=== PATIENT | female | born 1955 | race Caucasian/White ===

== ENCOUNTER 2019-10-09 12:11 | Outpatient (CLI) | payer MEDICARE, SELFPAY ==
--- NOTE | ~2019-10-09 | XR_ITS ---
EXAMINATION: XR knee LT 2V DATE: 10/09/2019 12:28 INDICATION: Left knee pain. TECHNIQUE: 2 views of left knee were obtained. COMPARISON: None. FINDINGS: Bone alignment is normal. No fracture. Joint spaces are well maintained. There is no knee j oint effusion. IMPRESSION: 1. Normal left knee. Reviewed, dictated and finalized at location A. IMPRESSION: 1. Normal left knee.
== END 2019-10-09 12:12 | disposition home or self-care (01) ==
PROVIDERS: PCP Internal Medicine; Visit Provider Internal Medicine
DX: M79.605 Pain in left leg (principal)
CPT/HCPCS: 73560

== ENCOUNTER 2019-10-19 10:47 | Outpatient (CLI) | payer MEDICARE, SELFPAY ==
--- NOTE | ~2019-10-19 | US_ITS ---
EXAMINATION: US soft tissue LE LT DATE: 10/19/2019 11:45 INDICATION: Left popliteal fossa pain. TECHNIQUE: Multiple grayscale and Doppler ultrasound images of the popliteal fossa were obtained. COMPARISON: None FINDINGS/IMPRESSION: No abnormal masses or fluid collections identified at the left popliteal fossa. Reviewed, dictated and finalized at location A.
== END 2019-10-19 10:48 | disposition home or self-care (01) ==
PROVIDERS: PCP Internal Medicine; Visit Provider Internal Medicine
DX: M71.20 Synovial cyst of popliteal space [Baker], unspecified knee (principal); M79.89 Other specified soft tissue disorders
CPT/HCPCS: 76882

== ENCOUNTER 2019-12-03 17:32 | Outpatient (CLI) | payer MEDICARE, SELFPAY ==
[2019-12-03 17:51] LABS: Basophils Absolute Auto 0.1 K/mm3 (0.0-0.1); Basophils Percent Auto 0.6 % (0.2-1.2); Eosinophils Absolute Auto 0.2 K/mm3 (0-0.3); Eosinophils Percent Auto 1.9 % (0-4.4); Hemoglobin 14.8 g/dL (12.0-15.0); Immature Granulocyte Absolute 0.08 K/mm3 (0.00-0.031); Immature Granulocyte Percent A 0.7 % (0-0.5); Lymphocytes Absolute Auto 4.06 K/mm3 (0.9-3.2); Lymphocytes Percent Auto 37.6 % (18.3-44.2); Mean Corpuscular HGB Conc 32.9 g/dl (32-36); Mean Corpuscular Hemoglobin 29.2 pg (26-34); Mean Corpuscular Volume 88.9 fl (80-100); Mean Platelet Volume 10.4 fl (7.4-10.4); Monocytes Absolute Auto 0.6 K/mm3 (0.1-0.6); Monocytes Percent Auto 5.3 % (2.6-8.5); Neutrophils Absolute Auto 5.8 K/mm3 (1.3-6.7); Neutrophils Percent Auto 53.9 % (45.5-73.1); Platelet Count Result 274 k/mm3 (150-375); Red Blood Count 5.06 M/mm3 (4.2-5.4); White Blood Count 10.8 K/mm3 (4.5-10.0)
[2019-12-03 18:06] LABS: Alanine Aminotransferase 22 U/L (4-35); Albumin Level 4.1 g/dL (3.5-5.1); Alkaline Phosphatase 113 U/L (38-126); Aspartate Amino Transferase 22 U/L (14-36); Bilirubin,Total 0.4 mg/dL (0.2-1.3); Blood Urea Nitrogen 18 mg/dL (7-17); Calcium 9.2 mg/dL (8.4-10.2); Carbon Dioxide 28 mmol/L (22-30); Chloride 103 mmol/L (98-107); Cholesterol 181 mg/dL (0-200); Estimated Glomerular Filt Rate > 60; Glucose 91 mg/dL (65-105); HDL Direct 41 mg/dL; Potassium 3.8 mmol/L (3.4-5.0); Sodium 138 mmol/L (137-145); Triglycerides 203 mg/dL (<150)
[2019-12-03 18:17] LABS: LDL Cholesterol Direct 108 mg/dL
[2019-12-03 18:27] LABS: Creatinine Urine 73.2 mg/dL
[2019-12-03 18:57] LABS: Microalbumin Urine Random < 6.0 mg/L (0-16.7)
[2019-12-03 18:58] LABS: MALB Creatinine Ratio < 8.2 mg/g (0-30)
[2019-12-03 19:58] LABS: Hemoglobin A1C 7.2 % (<5.7)
== END 2019-12-03 17:33 | disposition home or self-care (01) ==
PROVIDERS: PCP Internal Medicine; Visit Provider Internal Medicine
DX: E78.2 Mixed hyperlipidemia (principal); E11.65 Type 2 diabetes mellitus with hyperglycemia
CPT/HCPCS: 36415; 80053; 80061; 82043; 83036; 85025

== ENCOUNTER 2020-04-07 16:14 | Outpatient (CLI) | payer MEDICARE, SELFPAY ==
--- NOTE | ~2020-04-07 | CT_ITS ---
EXAMINATION:CT lung screening DATE: 04/07/2020 16:45 INDICATION: Personal history of tobacco dependence. Current smoker with 45 pack year history. TECHNIQUE: Computed tomography (CT) of the chest was performed without intravenous contrast. Automate d exposure control and iterative reconstruction technique were employed. The dose-length product (DLP ) was 135.27 mGy-cm. COMPARISON: Chest CT 04/13/2019 FINDINGS: There is mild emphysema. There is mild atelectasis in lingula. There is a stable 3 mm nodul e in right lower lobe. No pleural effusion. The heart size is normal. There are coronary artery calci fications. No pericardial effusion. There is moderate thoracic spondylosis. There is mild chronic ant erior wedging of multiple thoracic vertebral bodies. IMPRESSION: 1. Lung-RADS category 2: Benign appearance or behavior. Continue annual screening with noncontrast lo w-dose chest CT in 12 months. Reviewed, dictated and finalized at location A. ICS INSTRUCTOR IMPRESSION: 1. Lung-RADS category 2: Benign appearance or behavior. Continue annual screeni ng with noncontrast low-dose chest CT in 12 months.
== END 2020-04-07 16:15 | disposition home or self-care (01) ==
PROVIDERS: PCP Family Medicine; Visit Provider Nurse Practitioner Family
DX: Z12.2 Encounter for screening for malignant neoplasm of respiratory organs (principal); Z87.891 Personal history of nicotine dependence
CPT/HCPCS: G0297

== ENCOUNTER 2020-05-22 15:19 | Outpatient (CLI) | payer MEDICARE, SELFPAY ==
--- NOTE | ~2020-05-22 | MM_ITS ---
EXAMINATION: MM screening alona BI w lizbet HISTORY: Screening mammogram TECHNIQUE: Craniocaudal and mediolateral oblique 3-D tomosynthesis images were obtained and synthetic 2-D images were generated. CAD analysis was submitted and interpreted. COMPARISON: 08/18/2018, 04/04/2017 bilateral digital screening mammogram examinations BREAST PARENCHYMAL COMPOSITION: There are scattered areas of fibroglandular density. FINDINGS: There is no evidence of suspicious mass, calcification, or architectural distortion to sugg est malignancy in either breast. There has been no suspicious interval change. IMPRESSION: 1. No mammographic evidence of malignancy. 2. Recommend routine screening mammography in one year. BI-RADS Category 1: Negative Reviewed, dictated and finalized at location B. BUNCH MAKER
== END 2020-05-22 15:20 | disposition home or self-care (01) ==
PROVIDERS: PCP Family Medicine; Visit Provider Obstetrics & Gynecology Gynecology
DX: Z12.31 Encounter for screening mammogram for malignant neoplasm of breast (principal)
CPT/HCPCS: 77063; 77067

== ENCOUNTER 2020-07-17 14:31 | Outpatient (CLI) | payer MEDICARE, SELFPAY ==
[2020-07-17 16:17] LABS: Basophils Absolute Auto 0.1 K/mm3 (0.0-0.1); Basophils Percent Auto 0.5 % (0.2-1.2); Eosinophils Absolute Auto 0.3 K/mm3 (0-0.3); Eosinophils Percent Auto 3.6 % (0-4.4); Hematocrit 47.4 % (37.0-47.0); Hemoglobin 15.3 g/dL (12.0-15.0); Immature Granulocyte Absolute 0.08 K/mm3 (0.00-0.031); Immature Granulocyte Percent A 0.9 % (0-0.5); Lymphocytes Absolute Auto 3.27 K/mm3 (0.9-3.2); Lymphocytes Percent Auto 35.2 % (18.3-44.2); Mean Corpuscular HGB Conc 32.3 g/dl (32-36); Mean Corpuscular Hemoglobin 28.2 pg (26-34); Mean Corpuscular Volume 87.5 fl (80-100); Mean Platelet Volume 10.5 fl (7.4-10.4); Monocytes Absolute Auto 0.6 K/mm3 (0.1-0.6); Neutrophils Percent Auto 53.8 % (45.5-73.1); Platelet Count Result 287 k/mm3 (150-375); Red Blood Count 5.42 M/mm3 (4.2-5.4); White Blood Count 9.3 K/mm3 (4.5-10.0)
[2020-07-17 16:41] LABS: LDL Cholesterol Direct 108 mg/dL
[2020-07-17 16:44] LABS: Alanine Aminotransferase 20 U/L (4-35); Albumin Level 4.2 g/dL (3.5-5.1); Alkaline Phosphatase 130 U/L (38-126); Anion Gap 3 mmol/L (8-16); Aspartate Amino Transferase 22 U/L (14-36); Bilirubin,Total 0.5 mg/dL (0.2-1.3); Blood Urea Nitrogen 13 mg/dL (7-17); Calcium 9.5 mg/dL (8.4-10.2); Carbon Dioxide 34 mmol/L (22-30); Chloride 101 mmol/L (98-107); Cholesterol 186 mg/dL (0-200); Estimated Glomerular Filt Rate > 60; Glucose 126 mg/dL (65-105); HDL Direct 41 mg/dL; Magnesium 1.8 mg/dL (1.6-2.3); Sodium 138 mmol/L (137-145); Triglycerides 267 mg/dL (<150)
[2020-07-17 16:46] LABS: Hemoglobin A1C 6.9 % (<5.7)
== END 2020-07-17 14:32 | disposition home or self-care (01) ==
PROVIDERS: PCP Family Medicine; Visit Provider Family Medicine
DX: E78.2 Mixed hyperlipidemia (principal); E53.8 Deficiency of other specified B group vitamins; K58.0 Irritable bowel syndrome with diarrhea; E08.00 Diabetes mellitus due to underlying condition with hyperosmolarity without nonketotic hyperglycemic-hyperosmolar coma (NKHHC)
CPT/HCPCS: 36415; 80048; 80061; 80076; 82607; 83036; 83735; 85025

== ENCOUNTER 2020-08-26 08:37 | Outpatient (CLI) | payer MEDICARE, SELFPAY ==
--- NOTE | ~2020-08-26 | CT_ITS ---
EXAMINATION: CT sinus wo con DATE: 08/26/2020 09:11 INDICATION: Chronic sinusitis TECHNIQUE: Computed tomography (CT) of the paranasal sinuses was performed without intravenous contra st. The dose-length product (DLP) was 239.53 mGy-cm. Iterative reconstruction was used. 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 There is mild mucosal thickening of the frontal sinuses, the bilateral maxillary sinuses, left greate r than right, and the ethmoidal air cells. Opacification of the left maxillary sinus has decreased. C hanges of left middle turbinectomy are noted. The bilateral ostiomeatal complexes are patent. Visuali zed soft tissues are unremarkable. Rightward deviation of the nasal septum is unchanged. IMPRESSION: 1. Mucosal thickening of the paranasal sinuses with improvement in the left maxillary sinus. 2. Stable rightward deviation of the nasal septum. Reviewed, dictated and finalized at location B. IMPRESSION: 1. Mucosal thickening of the paranasal sinuses with improvement in the left max illary sinus. 2. Stable rightward deviation of the nasal septum.
== END 2020-08-26 08:38 | disposition home or self-care (01) ==
PROVIDERS: PCP Family Medicine; Visit Provider Otolaryngology
DX: J32.9 Chronic sinusitis, unspecified (principal); J34.2 Deviated nasal septum
CPT/HCPCS: 70486

== ENCOUNTER 2020-09-22 16:05 | Emergency (ER) | payer MEDICARE, SELFPAY ==
--- NOTE | ~2020-09-22 | XR_ITS ---
EXAMINATION: XR chest 2V EXAM DATE: 09/22/2020 16:58 INDICATION: Midsternal chest and back pain. TECHNIQUE: Frontal and lateral projections of the chest obtained and reviewed. Comparison is made to prior examination from 08/16/2018. FINDINGS: The lungs are clear. There are no pleural effusions. The cardiomediastinal silhouette is within normal limits. There is no pneumothorax suspected. The bones and soft tissues are unremarkab le. IMPRESSION: No acute cardiopulmonary findings. Reviewed, dictated and finalized at location A.
--- NOTE | 2020-09-22 16:07 | ECG_ITS ---
Measurements Intervals [place] Rate: 91 P: 110 WI: 155 QRS: 124 QRSD: 144 T: 183 QT: 399 QTc: 492 Interpretive Statements SINUS RHYTHM VENTRICULAR PREMATURE COMPLEX ARM LEADS REVERSED RIGHT BUNDLE BRANCH BLOCK BASELINE ARTIFACT- I, II, AVR, AVL, V6 ABNORMAL ECG Electronically Signed On 09-22-2020 16:33:06 CDT by Mundo Pinto D.O.
[2020-09-22 16:15] VITALS: BP 119/56; PULSE 85; RESP 18; TEMP 36.3; O2SAT 95
[2020-09-22 16:32] LABS: Basophils Percent Auto 0.4 % (0.2-1.2); Eosinophils Absolute Auto 0.2 K/mm3 (0-0.3); Eosinophils Percent Auto 1.6 % (0-4.4); Hemoglobin 14.8 g/dL (12.0-15.0); Immature Granulocyte Absolute 0.07 K/mm3 (0.00-0.031); Immature Granulocyte Percent A 0.7 % (0-0.5); Lymphocytes Absolute Auto 3.29 K/mm3 (0.9-3.2); Lymphocytes Percent Auto 33.2 % (18.3-44.2); Mean Corpuscular HGB Conc 32.2 g/dl (32-36); Mean Corpuscular Hemoglobin 28.4 pg (26-34); Mean Corpuscular Volume 88.3 fl (80-100); Mean Platelet Volume 10.2 fl (7.4-10.4); Monocytes Absolute Auto 0.5 K/mm3 (0.1-0.6); Monocytes Percent Auto 4.7 % (2.6-8.5); Neutrophils Absolute Auto 5.9 K/mm3 (1.3-6.7); Neutrophils Percent Auto 59.4 % (45.5-73.1); Platelet Count Result 302 k/mm3 (150-375); Red Blood Count 5.21 M/mm3 (4.2-5.4); Red Cell Distribution Width 14.6 % (11.5-14.5); White Blood Count 9.9 K/mm3 (4.5-10.0)
[2020-09-22 16:41] LABS: Anion Gap 5 mmol/L (8-16); Blood Urea Nitrogen 16 mg/dL (7-17); Calcium 8.9 mg/dL (8.4-10.2); Carbon Dioxide 30 mmol/L (22-30); Chloride 104 mmol/L (98-107); Estimated CRCL calculation 69 ml/min; Estimated Glomerular Filt Rate > 60; Glucose 155 mg/dL (65-105); INR 0.9; Potassium 3.8 mmol/L (3.4-5.0); Prothrombin Time 12.7 Seconds (11.1-14.7); Sodium 139 mmol/L (137-145)
[2020-09-22 16:42] LABS: Partial Thromboplastin Time 27.2 SECONDS (22.3-36.8)
[2020-09-22 16:54] LABS: Troponin I < 0.012 ng/mL (0.000-0.034)
--- NOTE | 2020-09-22 19:57 | ED.CHESTPAIN ---
HPI - Chest Pain General Chief Complaint: Chest Pain Stated Complaint: chest pain radiates to back Time Seen by Provider: 09/22/20 19:43 Source: patient and family Mode of arrival: ambulatory Limitations: no limitations History of Present Illness HPI narrative: 64-year-old with a history of hypertension here with complaints of nausea, chest pain and vomiting for past few days. Patient states that she has been on losartan 25 mg daily which was recently increased to 50 mg. Patient states that she is doing taking it for past few days however she states that she is unable to tolerate 50 mg losartan. She states that she threw up several times in the past few days however since morning she was feeling much better. She presently denies any fever or chills. No history of chest pain at this time. She states that she called her primary doctor who recommended to go to the ER. complaint: chest pain Onset (ago): day(s) (2) Pain location: substernal Pain radiation: none Relieving factors: nothing Exacerbating factors: nothing Related Data Home Medications Medication Instructions Recorded Confirmed aspirin 81 mg tablet,delayed 81 mg PO DAILY 06/01/19 02/21/20 release calcium polycarbophil 625 mg tablet 1,250 mg PO DAILY 06/01/19 02/21/20 albuterol sulfate 90 mcg/actuation 2 inh INHALATION Q4-6H g 07/07/20 aerosol inhaler Allergies Allergy/AdvReac Type Severity Reaction Status Date / Time doxycycline Allergy Unknown unknown Verified 02/21/20 10:29 erythromycin base Allergy Unknown unknown Verified 02/21/20 10:29 tetracycline Allergy Unknown Unknown Verified 02/21/20 10:29 Review of Systems Review of Systems: All systems reviewed & are unremarkable except as noted in HPI and below Constitutional: Constitutional: Reports no additional constitutional complaints Eyes: Eyes: Reports no additional eye complaints ENT: Reports system reviewed and no additional complaints, except as documented Cardiovascular: Cardiovascular: Reports as per HPI Respiratory: Respiratory: Reports no additional respiratory complaints Gastrointestinal: Gastrointestinal: Reports as per HPI Musculoskeletal: Musculoskeletal: Reports no additional musculoskeletal complaints Integumentary/Breasts: Skin/Breast: Reports system reviewed and no additional complaints, except as docu Neurologic: Reports system reviewed and no additional complaints, except as documented PMFSH Past Medical History Medical History Tobacco abuse Family History Family History Mother Family history of chronic obstructive pulmonary disease Family history of emphysema Family history of mental disorder, Onset Age: 83 Family history of alcoholism, Onset Age: 83 Family history of congestive heart failure, Onset Age: 83 Sibling Family history of malignant neoplasm Father Carcinoma of colon Other Diabetes mellitus Family history of cardiovascular disease Social History Social History Years smoked: 45 Smoking status: Current every day smoker Tobacco type: cigarettes Second hand tobacco smoke exposure: Yes Alcohol intake: current Gender identity (if verbalized by the patient): Female Exam Narrative: Exam Narrative: GENERAL: Well-appearing, well-nourished, and in no acute distress. HEAD: Normocephalic, atraumatic. EYES: PERRLA and EOMI. NECK: Supple. CHEST: Clear to auscultation. No respiratory distress. HEART: Regular rate and rhythm. No murmur heard. Normal peripheral pulses. ABDOMEN: Soft, nontender, nondistended, normal active bowel sounds. EXTREMITIES: Normal range of motion. No edema. SKIN: Warm, dry, no rash. NEURO: No focal deficits. Alert and oriented x3. PSYCH: Normal mood and affect. Course Course Emergency Course: Patient presently denies
[2020-09-22 20:30] VITALS: BP 124/83; PULSE 72; RESP 16; TEMP 36.3; O2SAT 99
[2020-09-22 20:39] LABS: Troponin I < 0.012 ng/mL (0.000-0.034)
== END 2020-09-22 20:31 | disposition home or self-care (01) ==
PROVIDERS: Emergency Medicine; Emergency Provider Family Medicine; PCP Family Medicine
DX: R07.89 Other chest pain (principal); K21.9 Gastro-esophageal reflux disease without esophagitis; F17.210 Nicotine dependence, cigarettes, uncomplicated; I49.3 Ventricular premature depolarization; I45.10 Unspecified right bundle-branch block
CPT/HCPCS: 36415; 71046; 80048; 84484; 85025; 85610; 85730; 93005; 99284

== ENCOUNTER 2020-09-25 14:01 | Outpatient (CLI) | payer MEDICARE, SELFPAY ==
--- NOTE | ~2020-09-25 | DEXA_ITS ---
Bone Density Report Name: Cherelle Menendez Age: 64 Sex: Female Ethnicity: White Date of : 1955 Indication: postmenopausal; parental hip fracture; height loss; inflammatory bowel disease; asthma or emphysema; hysterectomy; Referring Provider: JOANA DE LA CRUZ Study: Bone densitometry was performed. Exam Date: September 25, 2020 Accession number: [id number] Bone Density: Region BMD T-score Z-score Classification AP Spine (L1-L4) 1.049 0.0 1.7 Normal Femoral Neck (Left) 0.713 -1.2 0.2 Osteopenia Total Hip (Left) 0.876 -0.5 0.6 Normal Total Hip Bilateral Avg 0.883 -0.5 0.7 Normal Femoral Neck (Right) 0.634 -1.9 -0.5 Osteopenia Total Hip (Right) 0.889 -0.4 0.7 Normal World Health Organization criteria for BMD impression classify patients as: Normal (T-score at or above -1.0), Osteopenia (T-score between -1.0 and -2.5), or Osteoporosis (T-score at or below -2.5). 10-year Fracture Risk(1): Major Osteoporotic Fracture 18% Hip Fracture 2.2% Reported Risk Factors: [place] (), Neck BMD=0.634, BMI=32.6, parental fracture, smoking (1) FRAX(R) Version 3.08. Fracture probability calculated for an untreated patient. Fracture probability may be lower if the patient has received treatment. Previous Exams: Region Exam Age BMD T-score BMD Change BMD Change Date g/cm2 vs Baseline vs Previous AP Spine(L1-L4) 09/25/2020 64 1.049 0.0 -0.066(-5.9%)# 0.008(0.8%) 08/18/2018 62 1.041 -0.1 -0.074(-6.6%)# 0.017(1.7%) 07/01/2015 59 1.024 -0.2 -0.091(-8.2%)# -0.091(-8.2%)# 05/19/2005 49 1.115 0.6 Total Hip(Left) 09/25/2020 64 0.876 -0.5 -0.147(-14.4%) -0.022(-2.5%) 08/18/2018 62 0.898 -0.4 -0.125(-12.2%) -0.077(-7.9%)* 07/01/2015 59 0.975 0.3 -0.048(-4.7%)# -0.048(-4.7%)# 05/19/2005 49 1.023 0.7 Total Hip(Right) 09/25/2020 64 0.889 -0.4 -0.165(-15.6%) -0.066(-6.9%)* 08/18/2018 62 0.955 0.1 -0.099(-9.4%)# -0.032(-3.3%)* 07/01/2015 59 0.987 0.4 -0.067(-6.3%)# -0.067(-6.3%)# 05/19/2005 49 1.054 0.9 *Denotes significance at 95% confidence level, LSC for AP Spine = 0.022 g/cm2, LSC for Total Hip = 0.027 g/cm2 Clinical Information Provided by Patient: Parent has had a hip fracture Smokes Has used the following medications: Vitamin D Has the following medical conditions: Asthma or Emphysema, Inflammatory bowel diseases, Hysterectomy Patient maximum height was 63 Menopause Age: 49 No regular weight bearing exercise Onset of menses at age
== END 2020-09-25 14:02 | disposition home or self-care (01) ==
PROVIDERS: PCP Family Medicine; Visit Provider Obstetrics & Gynecology Gynecology
DX: Z78.0 Asymptomatic menopausal state (principal); M85.852 Other specified disorders of bone density and structure, left thigh; M85.851 Other specified disorders of bone density and structure, right thigh
CPT/HCPCS: 77080

== ENCOUNTER 2020-09-29 11:19 | Emergency (ER) | payer MEDICARE, SELFPAY ==
--- NOTE | ~2020-09-29 | CT_ITS ---
EXAMINATION: CT lumbar spine [facility] EXAM DATE: 09/29/2020 13:15 INDICATION: Low back pain, difficulty ambulating. Left leg pain. TECHNIQUE: Spiral CT of the lumbar spine was performed without contrast. Axial, coronal and sagittal images lumbar spine were reviewed. The dose-length product (DLP) for this examination was 820.70 mG y-cm. The exposure was tailored according to patient size (auto mA exposure control), and iterative reconstruction (ASIR) was used as additional dose reduction technique. There is no prior study for comparison. FINDINGS: There is lower abdominal aortic aneurysm measuring up to 3.3 cm. Moderate to severe loss of the disc height at L5-S1 with vacuum disc phenomenon. Mild disc disease at other lumbar levels. The vertebral bodies are aligned in the AP dimension. There are no acute fractures identified. No spondyl olysis. No endplate erosive change. Level by level evaluation: T12-L1: Disc does not extend beyond the endplate margin. Facet arthropathy: None. Neural foraminal stenosis: No stenosis. Central canal stenosis: No stenosis. L1-L2: There is a mild diffuse disc bulge. Facet arthropathy: Mild. Neural foraminal stenosis: No stenosis. Central canal stenosis: No stenosis. L2-L3: There is a mild to moderate diffuse disc bulge. Facet arthropathy: Mild. Neural foraminal stenosis: Moderate left, mild right. Central canal stenosis: Mild. L3-L4: There is a mild diffuse disc bulge. Facet arthropathy: Mild. Neural foraminal stenosis: Mild bilateral. Central canal stenosis: Mild to moderate. L4-L5: There is a mild diffuse disc bulge. Facet arthropathy: Mild to moderate. Neural foraminal stenosis: Mild to moderate right, mild left. Central canal stenosis: Mild to moderate. L5-S1: There is a mild to moderate diffuse disc bulge. Facet arthropathy: Moderate right, mild to moderate left. Neural foraminal stenosis: Moderate right, mild to moderate left. Central canal stenosis: Mild. IMPRESSION: 1. L5-S1 advanced disc disease, moderate right neural foraminal stenosis. 2. L2-3 moderate left neural foraminal stenosis. 3. Less spondylosis other levels Reviewed, dictated and finalized at location A.
[2020-09-29 11:34] VITALS: BP 109/79; PULSE 87; RESP 20; TEMP 36.9; O2SAT 95
[2020-09-29 12:21] LABS: Add Urine Microscopic? NO; Appearance Urine Clear (Clear); Bilirubin Urine Negative (Negative); Blood Urine Negative (Negative); Color Urine Yellow (Yellow); Glucose Urine UA Negative (Negative); Ketones Urine Negative (Negative); Leukocyte Esterase Ur Negative LEU/UL (Negative); Nitrate Urine Negative (Negative); Protein Urine Negative (Negative); Specific Grav Ur 1.016 (1.001-1.035); Urobilinogen Urine Negative mg/dL (<2.0)
[2020-09-29] MEDS: diazePAM INJ (*CRX) 10 MG/2 ML SYRINGE 5 MG IM (13:23)
[2020-09-29] MEDS: KETOROLAC (*BKC) 60 MG/2 ML VIAL IM (13:23)
[2020-09-29] MEDS: ACETAMINOPHEN 500 MG TABLET 1000 MG PO (13:23)
--- NOTE | 2020-09-29 13:26 | ED.BACK ---
HPI - Back Pain/Injury General Chief Complaint: Back Pain/Injury Stated Complaint: back pain Time Seen by Provider: 09/29/20 12:21 Source: patient Mode of arrival: ambulatory Limitations: no limitations History of Present Illness HPI Narrative: This is a 64 year old female that presents to the ER for low back pain present over the last month. Reports no known injury or trauma. Reports she was initially evaluated by her PCP for this, but was prescribed the generic pain medication which does not work for her. She has not taken any medication today yet for the pain. Pain is worse with movement and relieved with rest. Denies fever, saddle anesthesia, or bowel/bladder incontinence. Related Data Home Medications Medication Instructions Recorded Confirmed aspirin 81 mg tablet,delayed 81 mg PO DAILY 06/01/19 02/21/20 release calcium polycarbophil 625 mg tablet 1,250 mg PO DAILY 06/01/19 02/21/20 albuterol sulfate 90 mcg/actuation 2 inh INHALATION Q4-6H g 07/07/20 aerosol inhaler Allergies Allergy/AdvReac Type Severity Reaction Status Date / Time doxycycline Allergy Unknown unknown Verified 02/21/20 10:29 erythromycin base Allergy Unknown unknown Verified 02/21/20 10:29 tetracycline Allergy Unknown Unknown Verified 02/21/20 10:29 all generic medications Allergy Unknown Uncoded 09/29/20 11:48 Review of Systems Review of Systems: Narrative: CONSTITUTIONAL: Denies fever GASTROINTESTINAL: Denies vomiting GENITOURINARY: Denies dysuria SKIN: Denies rash MUSCULOSKELETAL: Reports back pain, joint pain, and myalgia. NEUROLOGIC: Denies numbness, or weakness. All systems reviewed & are unremarkable except as noted in HPI and below PMFSH Past Medical History Medical History (Updated 09/29/20 @ 14:42 by Frieda Perry PA-C) Chronic obstructive pulmonary disease Essential hypertension Gastroesophageal reflux disease with esophagitis MDD (major depressive disorder), recurrent episode, moderate Mixed hyperlipidemia Tobacco abuse Type 2 diabetes mellitus with hyperglycemia Family History Family History Mother Family history of chronic obstructive pulmonary disease Family history of emphysema Family history of mental disorder, Onset Age: 83 Family history of alcoholism, Onset Age: 83 Family history of congestive heart failure, Onset Age: 83 Sibling Family history of malignant neoplasm Father Carcinoma of colon Other Diabetes mellitus Family history of cardiovascular disease Social History Social History Years smoked: 45 Smoking status: Current every day smoker Tobacco type: cigarettes Second hand tobacco smoke exposure: Yes Alcohol intake: current Gender identity (if verbalized by the patient): Female Exam Narrative: Exam Narrative: GENERAL: Well-appearing, well-nourished, and in no acute distress. HEAD: Normocephalic, atraumatic. EYES: EOMI. CHEST: Clear to auscultation. No respiratory distress. No wheezes rales or rhonchi HEART: Regular rate and rhythm. No murmur heard. Normal peripheral pulses. BACK: No midline spinal tenderness EXTREMITIES: Normal range of motion. No edema. Strength equal in bilateral lower extremities (5/5). Normal patellar reflexes bilaterally. Normal DP pulses SKIN: Warm, dry, no rash NEURO: No focal deficits. Alert and oriented x3. PSYCH: Normal mood and affect Course Vital Signs Vital signs: Vital Signs Temperature 98.5 F 09/29/20 11:34 Pulse Rate 87 09/29/20 11:34 Respiratory Rate 20 09/29/20 11:34 Blood Pressure 109/79 09/29/20 11:34 Pulse Oximetry 95 09/29/20 11:34 Temperature 98.5 F 09/29/20 11:34 Pulse Rate 87 09/29/20 11:34 Respiratory Rate 20 09/29/20 11:34 Blood Pressure 109/79 09/29/20 11:34 Pulse Oximetry 95 09/29/20 11:34 MDM - Back Pain/Injury MDM Narrative Medica
[2020-09-29 14:54] VITALS: BP 138/72; PULSE 80; RESP 18; O2SAT 99
== END 2020-09-29 14:56 | disposition home or self-care (01) ==
PROVIDERS: Emergency Provider Emergency Medicine; PCP Family Medicine
DX: M54.16 Radiculopathy, lumbar region (principal); F17.210 Nicotine dependence, cigarettes, uncomplicated; J44.9 Chronic obstructive pulmonary disease, unspecified; I10 Essential (primary) hypertension; K21.9 Gastro-esophageal reflux disease without esophagitis; E78.2 Mixed hyperlipidemia; E11.9 Type 2 diabetes mellitus without complications; Z79.82 Long term (current) use of aspirin
CPT/HCPCS: 72131; 81003; 96372; 99284; A9270; J1885; J3360

== ENCOUNTER 2021-04-06 11:31 | Emergency (ER) | payer MEDICARE, SELFPAY ==
[2021-04-06] VITALS (27 sets, daily range): BP systolic 103–132; BP diastolic 52–94; PULSE 70–94; RESP 14–28; TEMP 36.1–36.8; O2SAT 88–100
--- NOTE | ~2021-04-06 | XR_ITS ---
EXAMINATION: XR chest 2V DATE: 04/06/2021 12:29 INDICATION: Shortness of breath. Cough. TECHNIQUE: Frontal and lateral views of the chest were obtained. COMPARISON: Chest 2 views 09/22/2020, chest CT 04/07/2020 FINDINGS: There is mild atelectasis in left lower lung zone. No pleural effusion or pneumothorax. The heart size is normal. IMPRESSION: 1. Mild atelectasis in left lower lung zone. Reviewed, dictated and finalized at location B. ESSOR OF ASTRONOMY
--- NOTE | 2021-04-06 11:42 | ECG_ITS ---
Measurements Intervals [place] Rate: 90 P: 83 MT: 156 QRS: 86 QRSD: 146 T: -10 QT: 396 QTc: 487 Interpretive Statements SINUS RHYTHM RIGHT BUNDLE BRANCH BLOCK BASELINE WANDER- V2, V5 ABNORMAL ECG Electronically Signed On 04-06-2021 12:44:44 WET PRIMER POWDER BLENDER by Mundo Pinto D.O.
[2021-04-06 12:11] LABS: Basophils Absolute Auto 0.1 K/mm3 (0.0-0.1); Basophils Percent Auto 0.8 % (0.2-1.2); Eosinophils Absolute Auto 0.2 K/mm3 (0-0.3); Eosinophils Percent Auto 2.3 % (0-4.4); Hematocrit 44.9 % (37.0-47.0); Hemoglobin 14.5 g/dL (12.0-15.0); Immature Granulocyte Absolute 0.06 K/mm3 (0.00-0.031); Immature Granulocyte Percent A 0.7 % (0-0.5); Lymphocytes Absolute Auto 2.56 K/mm3 (0.9-3.2); Lymphocytes Percent Auto 28.3 % (18.3-44.2); Mean Corpuscular HGB Conc 32.3 g/dl (32-36); Mean Corpuscular Hemoglobin 29.4 pg (26-34); Mean Corpuscular Volume 90.9 fl (80-100); Mean Platelet Volume 10.5 fl (7.4-10.4); Monocytes Absolute Auto 0.5 K/mm3 (0.1-0.6); Monocytes Percent Auto 5.3 % (2.6-8.5); Neutrophils Absolute Auto 5.7 K/mm3 (1.3-6.7); Neutrophils Percent Auto 62.6 % (45.5-73.1); Platelet Count Result 335 k/mm3 (150-375); Red Blood Count 4.94 M/mm3 (4.2-5.4); Red Cell Distribution Width 13.8 % (11.5-14.5); White Blood Count 9.1 K/mm3 (4.5-10.0)
[2021-04-06 12:29] LABS: Alanine Aminotransferase 21 U/L (4-35); Albumin Level 4.4 g/dL (3.5-5.1); Alkaline Phosphatase 93 U/L (38-126); Anion Gap 11 mmol/L (8-16); Aspartate Amino Transferase 22 U/L (14-36); Bilirubin,Total 0.6 mg/dL (0.2-1.3); Blood Urea Nitrogen 18 mg/dL (7-17); Calcium 9.6 mg/dL (8.4-10.2); Carbon Dioxide 25 mmol/L (22-30); Chloride 100 mmol/L (98-107); Estimated CRCL calculation 92 ml/min; Estimated Glomerular Filt Rate > 60; Glucose 231 mg/dL (65-110); Sodium 136 mmol/L (137-145)
[2021-04-06 13:00] LABS: Add Urine Microscopic? YES; Appearance Urine Clear (Clear); Bacteria Urine Trace /hpf; Bilirubin Urine Negative (Negative); Blood Urine Negative (Negative); Color Urine Yellow (Yellow); Glucose Urine UA 1+ mg/dL (Negative); Ketones Urine Negative (Negative); Leukocyte Esterase Ur Negative LEU/UL (Negative); Mucus Urine Rare /lpf; Nitrate Urine Negative (Negative); Protein Urine Negative (Negative); RBC Urine 0-2 /hpf (0-2); Specific Grav Ur 1.018 (1.001-1.035); Squamous Epithelial Cell Urine Rare /hpf (Few); WBC Urine 0-3 /hpf
[2021-04-06] MEDS: IPRATROPIUM BR 0.02% INH SOLN 0.5 MG/2.5 ML VIAL INHALATION (15:09)
[2021-04-06] MEDS: ALBUTEROL SULFATE NEB 2.5 MG/0.5 ML INH 5 MG INHALATION (15:09)
[2021-04-06] MEDS: methylPREDNISolone SOD SUCC 125 MG VIAL IV PUSH (15:35)
--- NOTE | 2021-04-06 16:03 | PC.NURSE ---
02 placed at 2l NC due to spo2 dropping to 88% on room air while sleeping.
--- NOTE | 2021-04-06 17:47 | ED.GENADULT ---
HPI - General Adult General Chief complaint: Shortness of Breath/Dyspnea Stated complaint: SOB/Cough. Time Seen by Provider: 04/06/21 14:30 Source: patient Mode of arrival: ambulatory Limitations: no limitations History of Present Illness HPI narrative: Patient is a 65-year-old female who smokes has a history of COPD who presents with chief complaint of shortness of breath and a productive cough over the past 4 to 5 days. Patient reports that she has not been febrile had nausea, vomiting, chest pain. Patient reports that she has noticed some intermittent wheezing which improved with the use of her rescue inhaler but theN return. Patient reports that she has also been using her daily maintenance Dulera inhaler. She reports that she has a appointment with her aluminum boats assembler on April with that she should not wait to be evaluated. Patient reports that she has been vaccinated against Covid using [employer] in December. Patient mild body aches, nausea, vomiting, diarrhea, headache, chills or any other symptoms. Related Data Home Medications Medication Instructions Recorded Confirmed aspirin 81 mg tablet,delayed 81 mg PO DAILY 06/01/19 10/21/20 release albuterol sulfate 90 mcg/actuation 2 inh INHALATION Q4-6H g 07/07/20 10/21/20 aerosol inhaler fenofibrate mg 04/06/21 gabapentin 600 mg PO TID 04/06/21 metformin 500 mg PO BID 04/06/21 Allergies Allergy/AdvReac Type Severity Reaction Status Date / Time doxycycline Allergy Unknown unknown Verified 04/06/21 14:12 erythromycin base Allergy Unknown unknown Verified 04/06/21 14:12 tetracycline Allergy Unknown Unknown Verified 04/06/21 14:12 all generic medications Allergy Unknown Uncoded 04/06/21 14:12 Review of Systems Review of Systems: CONSTITUTIONAL: Denies fever, chills, or sweats. EYES: Denies visual changes, redness, or discharge. ENT: Denies rhinorrhea, congestion, sore throat, or otalgia. CARDIOVASCULAR: Denies chest pain, palpitations, or edema. RESPIRATORY: Reports cough or dyspnea. GASTROINTESTINAL: Denies abdominal pain, nausea, vomiting, or diarrhea. GENITOURINARY: Denies dysuria or hematuria. SKIN: Denies rash or itching. MUSCULOSKELETAL: Denies back pain, joint pain, or myalgia. NEUROLOGIC: Denies headache, numbness, dizziness, or weakness. PSYCHIATRIC: Denies anxiety or depression. [facility] Past Medical History Medical History Chronic obstructive pulmonary disease Essential hypertension Gastroesophageal reflux disease with esophagitis MDD (major depressive disorder), recurrent episode, moderate Mixed hyperlipidemia Tobacco abuse Type 2 diabetes mellitus with hyperglycemia Family History Family History Mother Family history of chronic obstructive pulmonary disease Family history of emphysema Family history of mental disorder, Onset Age: 83 Family history of alcoholism, Onset Age: 83 Family history of congestive heart failure, Onset Age: 83 Sibling Family history of malignant neoplasm Father Carcinoma of colon Other Diabetes mellitus Family history of cardiovascular disease Social History Social History Years smoked: 45 Smoking status: Current every day smoker Tobacco type: cigarettes Second hand tobacco smoke exposure: Yes Alcohol intake: current Gender identity (if verbalized by the patient): Female Exam Narrative: GENERAL: Well-appearing, well-nourished, and in no acute distress. HEAD: Normocephalic, atraumatic. EYES: PERRLA and EOMI. CHEST: Clear to auscultation. No respiratory distress. Faint expiratory wheezing in lower lung zones. Tight barky cough noted during exam. HEART: Regular rate and rhythm. No murmur heard. Normal peripheral pulses. EXTREMITIES: Normal range of motion. No edema. SKIN: Warm, dry, no rash. NE
== END 2021-04-06 18:06 | disposition home or self-care (01) ==
PROVIDERS: Emergency Medicine; Emergency Provider Emergency Medicine; PCP Family Medicine
DX: J44.1 Chronic obstructive pulmonary disease with (acute) exacerbation (principal); I10 Essential (primary) hypertension; E78.2 Mixed hyperlipidemia; E11.9 Type 2 diabetes mellitus without complications; K21.00 Gastro-esophageal reflux disease with esophagitis, without bleeding; Z79.82 Long term (current) use of aspirin; Z79.84 Long term (current) use of oral hypoglycemic drugs; F17.210 Nicotine dependence, cigarettes, uncomplicated; I45.10 Unspecified right bundle-branch block
CPT/HCPCS: 36415; 71046; 80053; 81001; 81025; 85025; 93005; 94640; 96374; 99284; J2930

== ENCOUNTER 2021-06-10 12:32 | Outpatient (CLI) | payer MEDICARE, SELFPAY ==
--- NOTE | ~2021-06-10 | CT_ITS ---
CT lung screening DATE: 06/10/2021 12:52 INDICATION: Personal history of nicotine dependence TECHNIQUE: CT images through the chest. Automated exposure control and iterative reconstruction tech [employer] were employed. Exam dose: 131.07 mGy-cm total exam DLP. COMPARISON: 04/06/2021 2 view chest 04/07/2020 CT lung screening FINDINGS: Mild emphysema. 4 mm ground glass density in the right upper lobe (series 4 image 41). 4 mm calcified right upper lobe pulmonary granuloma. Previous 3 mm right lower lobe nodule on 04/07/2020 has diminished in size, measuring approximately 2 .4 mm currently. Mild discoid atelectasis or scarring in the base of the lingula and left lower lobe. No hilar or mediastinal lymphadenopathy. Normal heart size. Aortic, great vessel and coronary artery calcifications. No pericardial or pleural effusion. Normal morphology of the adrenal glands. Degenerative spurring of the thoracic spine. IMPRESSION: Lung-RADS Category 2: Benign appearance or behavior; less than 1% risk of malignancy Continue annual screening with LDCT in 12 months Reviewed, dictated and finalized at Location A. Reviewed, dictated and finalized at location A. BATIC DANCER
== END 2021-06-10 12:33 | disposition home or self-care (01) ==
PROVIDERS: PCP Family Medicine; Visit Provider Nurse Practitioner Family
DX: Z12.2 Encounter for screening for malignant neoplasm of respiratory organs (principal); Z87.891 Personal history of nicotine dependence
CPT/HCPCS: 71271

== ENCOUNTER 2021-06-22 11:14 | Outpatient (CLI) | payer MEDICARE, SELFPAY ==
--- NOTE | ~2021-06-22 | MM_ITS ---
EXAMINATION: MM screening [place] BI w lizbet HISTORY: Screening TECHNIQUE: Craniocaudal and mediolateral oblique 3-D tomosynthesis images were obtained and synthetic 2-D images were generated. CAD analysis was submitted and interpreted. COMPARISON: Comparison to multiple prior studies sequentially, with oldest reviewed study dated 02/14. BREAST PARENCHYMAL COMPOSITION: The breasts are almost entirely fatty. FINDINGS: There is no evidence of suspicious mass, calcification, or architectural distortion to sugg est malignancy in either breast. There has been no suspicious interval change. IMPRESSION: 1. No mammographic evidence of malignancy. 2. Recommend routine screening mammography in one year. BI-RADS Category 1: Negative Reviewed, dictated and finalized at location A. MODYNAMICS TEACHER
== END 2021-06-22 11:15 | disposition home or self-care (01) ==
PROVIDERS: PCP Family Medicine; Visit Provider Obstetrics & Gynecology Gynecology
DX: Z12.31 Encounter for screening mammogram for malignant neoplasm of breast (principal)
CPT/HCPCS: 77063; 77067

== ENCOUNTER 2021-09-09 21:50 | Emergency (ER) | payer MEDICARE, SELFPAY ==
--- NOTE | ~2021-09-09 | XR_ITS ---
EXAMINATION: XR chest 2V DATE: 09/09/2021 23:55 INDICATION: Shortness of breath. TECHNIQUE: Frontal and lateral views of the chest were obtained. COMPARISON: Chest 2 views 04/06/2021, chest CT 06/10/2021 FINDINGS: There is mild atelectasis at left lung base. No pleural effusion or pneumothorax. The heart size is normal. IMPRESSION: 1. Mild atelectasis at left lung base. Reviewed, dictated and finalized at location A.
[2021-09-09 21:55] VITALS: BP 118/69; PULSE 99; RESP 16; TEMP 36.8; O2SAT 96
[2021-09-10 00:07] VITALS: BP 120/73; PULSE 86; RESP 20; O2SAT 98
[2021-09-10 00:10] LABS: Basophils Absolute Auto 0.1 K/mm3 (0.0-0.1); Basophils Percent Auto 0.4 % (0.2-1.2); Eosinophils Absolute Auto 0.2 K/mm3 (0-0.3); Eosinophils Percent Auto 1.1 % (0-4.4); Hematocrit 42.3 % (37.0-47.0); Hemoglobin 14.2 g/dL (12.0-15.0); Immature Granulocyte Absolute 0.16 K/mm3 (0.00-0.031); Immature Granulocyte Percent A 1.2 % (0-0.5); Lymphocytes Absolute Auto 4.19 K/mm3 (0.9-3.2); Lymphocytes Percent Auto 30.6 % (18.3-44.2); Mean Corpuscular HGB Conc 33.6 g/dl (32-36); Mean Corpuscular Hemoglobin 28.9 pg (26-34); Mean Platelet Volume 9.8 fl (7.4-10.4); Monocytes Absolute Auto 0.8 K/mm3 (0.1-0.6); Monocytes Percent Auto 5.8 % (2.6-8.5); Neutrophils Absolute Auto 8.3 K/mm3 (1.3-6.7); Neutrophils Percent Auto 60.9 % (45.5-73.1); Platelet Count Result 274 k/mm3 (150-375); Red Blood Count 4.92 M/mm3 (4.2-5.4); Red Cell Distribution Width 14.6 % (11.5-14.5); White Blood Count 13.7 K/mm3 (4.5-10.0)
[2021-09-10 00:21] LABS: Anion Gap 7 mmol/L (8-16); Blood Urea Nitrogen 18 mg/dL (7-17); Calcium 8.5 mg/dL (8.4-10.2); Carbon Dioxide 28 mmol/L (22-30); Chloride 100 mmol/L (98-107); Estimated CRCL calculation 91 ml/min; Estimated Glomerular Filt Rate > 60; Glucose 130 mg/dL (65-110); Potassium 3.6 mmol/L (3.4-5.0); Sodium 135 mmol/L (137-145)
[2021-09-10 00:31] VITALS: BP 117/70; PULSE 80; RESP 18; O2SAT 99
--- NOTE | 2021-09-10 01:00 | ED.URI ---
HPI - URI/Sore Throat General Chief Complaint: Upper Respiratory Infection Stated Complaint: sinus infection Time Seen by Provider: 09/09/21 23:27 Source: patient Mode of arrival: wheelchair Limitations: no limitations History of Present Illness HPI Narrative: 65-year-old with a history of hypertension, hyperlipidemia, COPD on 2 L of home oxygen here with complaints of sinus drainage for past 2 weeks. She states that the drainage is making her to cough more. She usually takes Z-Alexandru which helps with the cough and sinus drainage. She denies any fever or chills. MD elicited complaint: cough, nasal congestion and sinus pain Pertinent past history: COPD Onset (ago): week(s) (2) Consistency: constant Severity: moderate Description of mucous: yellow Exacerbating factors: nothing Relieving factors: nothing Associated symptoms: nasal congestion Treatments prior to arrival: none Related Data Home Medications Medication Instructions Recorded Confirmed aspirin 81 mg tablet,delayed 81 mg PO DAILY 06/01/19 04/16/21 release gabapentin 600 mg PO TID 04/06/21 04/16/21 metformin 500 mg PO BID 04/06/21 04/16/21 albuterol sulfate 2.5 mg INHALATION QID PRN ml 05/01/21 Allergies Allergy/AdvReac Type Severity Reaction Status Date / Time doxycycline Allergy Unknown unknown Verified 09/09/21 22:00 erythromycin base Allergy Unknown unknown Verified 09/09/21 22:00 tetracycline Allergy Unknown Unknown Verified 09/09/21 22:00 amoxicillin [From Augmentin] Allergy Unknown Verified 09/09/21 22:00 clavulanic acid Allergy Unknown Verified 09/09/21 22:00 [From Augmentin] all generic medications Allergy Unknown Uncoded 04/06/21 14:12 Review of Systems Review of Systems: All systems reviewed & are unremarkable except as noted in HPI and below Constitutional: Constitutional: Reports no additional constitutional complaints Eyes: Eyes: Reports no additional eye complaints ENT: Reports system reviewed and no additional complaints, except as documented Cardiovascular: Cardiovascular: Reports no additional cardiovascular complaints Respiratory: Respiratory: Reports cough Gastrointestinal: Gastrointestinal: Reports no additional gastrointestinal complaints Musculoskeletal: Musculoskeletal: Reports no additional musculoskeletal complaints PMFSH Past Medical History Medical History Chronic obstructive pulmonary disease Essential hypertension Gastroesophageal reflux disease with esophagitis MDD (major depressive disorder), recurrent episode, moderate Mixed hyperlipidemia Tobacco abuse Type 2 diabetes mellitus with hyperglycemia Family History Family History Mother Family history of chronic obstructive pulmonary disease Family history of emphysema Family history of mental disorder, Onset Age: 83 Family history of alcoholism, Onset Age: 83 Family history of congestive heart failure, Onset Age: 83 Sibling Family history of malignant neoplasm Father Carcinoma of colon Other Diabetes mellitus Family history of cardiovascular disease Social History Social History Years smoked: 45 Tobacco type: cigarettes Second hand tobacco smoke exposure: Yes Alcohol intake: current Gender identity (if verbalized by the patient): Female Exam Narrative: GENERAL: Well-appearing, well-nourished, and in no acute distress. HEAD: Normocephalic, atraumatic. EYES: PERRLA and EOMI. ENT: Nose no sinus tenderness NECK: Supple. CHEST: Clear to auscultation. No respiratory distress. HEART: Regular rate and rhythm. No murmur heard. Normal peripheral pulses. ABDOMEN: Soft, nontender, nondistended, normal active bowel sounds. EXTREMITIES: Normal range of motion. No edema. SKIN: Warm, dry, no rash. NEURO: No focal deficits. Alert and oriented x
[2021-09-10 01:15] VITALS: BP 111/75; PULSE 76; RESP 18; O2SAT 96
== END 2021-09-10 01:15 | disposition home or self-care (01) ==
PROVIDERS: Emergency Provider Family Medicine; PCP Family Medicine
DX: J06.9 Acute upper respiratory infection, unspecified (principal); J44.9 Chronic obstructive pulmonary disease, unspecified; E78.5 Hyperlipidemia, unspecified; I10 Essential (primary) hypertension; E78.2 Mixed hyperlipidemia; E11.9 Type 2 diabetes mellitus without complications; K21.00 Gastro-esophageal reflux disease with esophagitis, without bleeding; Z99.81 Dependence on supplemental oxygen; Z79.84 Long term (current) use of oral hypoglycemic drugs; Z79.82 Long term (current) use of aspirin; F17.210 Nicotine dependence, cigarettes, uncomplicated
CPT/HCPCS: 36415; 71046; 80048; 85025; 99283

== ENCOUNTER 2022-04-10 18:00 | Emergency (ER) | payer MEDICARE, SELFPAY ==
--- NOTE | ~2022-04-10 | XR_ITS ---
EXAM: XR abdomen/kub 1V DATE: 04/10/2022 18:30 HISTORY: FLANK PAIN, DIABETIC . COMPARISON: None available. FINDINGS: Clear lung bases. Normal bowel gas pattern. No organomegaly. No abnormal abdominal calcifi cation. Degenerative change in the lumbar spine and hips. IMPRESSION: No radiographic evidence of ileus or obstruction. No radiographic evidence of nephrolithi asis. Reviewed, dictated and finalized at location K. LY SUPPORT SPECIALIST IMPRESSION: No radiographic evidence of ileus or obstruction. No radiographic e vidence of nephrolithiasis.
--- NOTE | 2022-04-10 18:06 | ED.FEMALEGU ---
HPI - Female Genitourinary General Chief complaint: Urogenital-Female Stated complaint: bladder infection Time Seen by Provider: 04/10/22 18:06 Source: patient Mode of arrival: ambulatory Limitations: no limitations History of Present Illness HPI Narrative: Cherelle is a 66-year-old female patient presenting to the clinic today with complaints of a possible urinary tract infection. She reports she is having feelings of incomplete emptying of her bladder as well as some lower abdominal pain flank pain. She states that this has been ongoing for about a week and half now. Denies any burning with urination but is having urinary frequency as well. Just started taking metformin approximately 2 weeks ago and was taken off her Ozempic. Also states she has a history of IBS- D. Last bowel movement was this morning and was normal for the patient- not diarrhea and there was no blood in the stool. Has been taking some Pepto chewable tabs for abdominal cramping Related Data Home Medications Medication Instructions Recorded Confirmed aspirin 81 mg tablet,delayed 81 mg PO DAILY 06/01/19 03/18/22 release (Adult Low Dose Aspirin) albuterol sulfate 2.5 mg/3 mL 2.5 mg inhalation QID PRN 05/01/21 03/18/22 (0.083 %) solution for nebulization semaglutide 1 mg/dose (4 mg/3 mL) 1 mg subcut WEEKLY 10/15/21 03/18/22 subcutaneous pen injector (Ozempic) gabapentin 300 mg capsule 300 mg PO DIRECTED 04/10/22 04/10/22 losartan 50 mg tablet 50 mg PO DAILY 04/10/22 04/10/22 metformin 500 mg tablet mg 04/10/22 Allergies Allergy/AdvReac Type Severity Reaction Status Date / Time doxycycline Allergy Unknown unknown Verified 04/10/22 18:11 erythromycin base Allergy Unknown unknown Verified 04/10/22 18:11 tetracycline Allergy Unknown Unknown Verified 04/10/22 18:11 amoxicillin [From Augmentin] Allergy Unknown Verified 04/10/22 18:11 clavulanic acid Allergy Unknown Verified 04/10/22 18:11 [From Augmentin] all generic medications Allergy Unknown Uncoded 04/10/22 18:11 Review of Systems Review of Systems: Pertinent positives per HPI. Patient denies any fever, chills, rash, headache, visual changes, dizziness, cough, runny nose, sore throat, shortness of breath, chest pain, palpitations, nausea, vomiting, diarrhea, constipation, PMFSH Past Medical History Medical History Chronic obstructive pulmonary disease Essential hypertension Gastroesophageal reflux disease with esophagitis MDD (major depressive disorder), recurrent episode, moderate Mixed hyperlipidemia Tobacco abuse Type 2 diabetes mellitus with hyperglycemia Family History Family History Mother Family history of chronic obstructive pulmonary disease Family history of emphysema Family history of mental disorder, Onset Age: 83 Family history of alcoholism, Onset Age: 83 Family history of congestive heart failure, Onset Age: 83 Sibling Family history of malignant neoplasm Father Carcinoma of colon Other Diabetes mellitus Family history of cardiovascular disease Social History Social History Smoking packs per day: 1 Smoking cigarettes per day: 20.0 Years smoked: 45 Smoking pack-years: 45.00 Smoking status: Current every day smoker Tobacco type: cigarettes Second hand tobacco smoke exposure: Yes Alcohol intake: former Gender identity (if verbalized by the patient): Female Comments At the time of my signature, I reviewed and agree with the nursing past medical, surgical, social, and family history. There is no relevant family history pertinent to the patient complaint. Exam Narrative: General: Well-developed, well nourished, in no apparent distress. Head: Normocephalic, atraumatic. Cardio: Regular rate and rhythm, s1 and s2 normal
[2022-04-10 18:19] VITALS: BP 158/91; PULSE 101; RESP 20; TEMP 36.9; O2SAT 94
== END 2022-04-10 18:54 | disposition home or self-care (01) ==
PROVIDERS: Emergency Provider Nurse Practitioner Family; PCP Family Medicine
DX: K59.09 Other constipation (principal); R10.32 Left lower quadrant pain; R81 Glycosuria; E78.2 Mixed hyperlipidemia; E11.9 Type 2 diabetes mellitus without complications; I10 Essential (primary) hypertension; J44.9 Chronic obstructive pulmonary disease, unspecified; F17.210 Nicotine dependence, cigarettes, uncomplicated
CPT/HCPCS: 74018; 81003; 99213; G0463

== ENCOUNTER 2022-05-03 14:45 | Outpatient (RCR) | payer MEDICARE, SELFPAY ==
--- NOTE | 2022-03-10 13:00 | PTOPEVAL1 ---
Assessment and note entered by Franny Flores, PT Evaluation Information Assessment Status Evaluation Diagnosis cervical radiculopathy, neck pain, lumbar radiculopathy Subjective Information Neck pain started in 05/2021 also reports right UE hurts and L hand is tingly. Back pain; was injured about 40 years ago Reported Pain Level Pain Score 6,4,6: Self Report Additional Pain Score Comments Pt reports was getting pain shots and last one didn't last at all Pain in back, neck and legs with the right leg being the most limiting Wants to get away from medications for pain Assessment PT Clinical Summary Pt presents w/ c/o pain from head to toe . Lumbar pain is chronic in nature, cervical pain pt reports began beginning of the year. Prior treatments for lumbar pain include steroid shots and pain management. Evaluation today shows multiple areas of muscle tension with reduced flexibility, decreased ROM in cervical and lumbar spine, decreased strength berenice glute med and max as well as core, abnormal ankle/foot and pelvic alignment effecting joints and postures up the kinematic chain. Thus pt would benefit from physical therapy to address soft tissue extensibility, improve alignment, and strengthening to stabilize improved alignment, thus reducing pain. Plan of Care Interventions Electrical Stimulation,Hot Pack/Cold Pack,Manual Therapy,Neuro Re-education,Therapeutic Activities, Therapeutic Exercise,Self-Care/Home Management Other Interventions Possible bracing to assist in stabilizing postures PT Services Indicated Yes Treatment Frequency and 1-2x weekly x 6-8 weeks Duration These treatments will address the objective and functional deficits as defined above. The patient will be advanced safely and appropriately in order for the patient to progress towards his/her prior level of function. Additional exercises will be introduced and as well as a comprehensive home exercise program upon discharge, if needed, ?to ensure carryover of functional gains achieved in the clinic. This treatment plan has been reviewed and agreement upon by the patient.
--- NOTE | 2022-05-12 16:41 | PCPTNOTE ---
This treatment is being continued on visit number [id number]. Please see documentation on both accounts to view progress. Completed interventions, outcomes, and problems have been marked as Inactive to facilitate the copying of the Care plan routine for recurring accounts.
== END 2022-05-12 14:43 | disposition still patient (30) ==
LOC: ANHHIPT 14:45
PROVIDERS: PCP Family Medicine
DX: M54.2 Cervicalgia (principal); M54.12 Radiculopathy, cervical region; M54.16 Radiculopathy, lumbar region
CPT/HCPCS: 97014; 97110; 97140; 97162; G0283

== ENCOUNTER 2022-06-11 13:33 | Outpatient (CLI) | payer MEDICARE, SELFPAY ==
--- NOTE | ~2022-06-11 | CT_ITS ---
EXAMINATION:CT lung screening DATE: 06/11/2022 13:58 INDICATION: Tobacco use. Current smoker with 45 pack year history. TECHNIQUE: Computed tomography (CT) of the chest was performed without intravenous contrast. Automate d exposure control and iterative reconstruction technique were employed. The dose-length product (DLP ) was 125.69 mGy-cm. COMPARISON: Chest CT 06/10/2021 FINDINGS: There is mild emphysema. There is mild atelectasis in lingula. There is a new 4 mm nodule i n right upper lobe. No pleural effusion. The heart size is normal. There are coronary artery calcific ations. No pericardial effusion. There is moderate thoracic spondylosis. There is mild chronic anteri or wedging of multiple vertebral bodies. IMPRESSION: 1. Lung-RADS category 3: Probably benign. Further evaluation is recommended with noncontrast low-dose chest CT in 6 months. Reviewed, dictated and finalized at location A. R MANGLE TENDER IMPRESSION: 1. Lung-RADS category 3: Probably benign. Further evaluation is recommended wit h noncontrast low-dose chest CT in 6 months.
== END 2022-06-11 13:34 | disposition home or self-care (01) ==
PROVIDERS: PCP Family Medicine; Visit Provider Nurse Practitioner Family
DX: Z12.2 Encounter for screening for malignant neoplasm of respiratory organs (principal); Z87.891 Personal history of nicotine dependence; R91.8 Other nonspecific abnormal finding of lung field
CPT/HCPCS: 71271

== ENCOUNTER 2022-06-16 09:00 | Outpatient (RCR) | payer MEDICARE, SELFPAY ==
--- NOTE | 2022-05-12 16:41 | PCPTNOTE ---
The treatment documented on this account is a continuation of the treatment documented on visit number [id number]. Please see documentation on both accounts to view progress. The Plan of Care has been transitioned and updated within the new V#. I have addressed and agree with the discipline specific Problems, Interventions, and Goals for the current certification period. Completed interventions, outcomes, and problems have been marked as Inactive to facilitate the copying of the Care plan routine for recurring accounts.
--- NOTE | 2022-06-09 15:48 | PCPTNOTE ---
Patient called & cancelled scheduled appointment this date due to feeling unwell
--- NOTE | 2022-06-24 14:18 | PTOPDC ---
Assessment and note entered by Franny Flores, PT Assessment Status Discharge - Pt Not Present Diagnosis cervical radiculopathy, neck pain, lumbar radiculopathy Subjective Information Pt reports improvement overall at 95%. States she still has stiffness and a funny feeling in mid/ lower back she thinks is related to something else . Has follow-up appts with specialists to r/o kidney/bladder issues She reports back is not as stiff anymore, RLE is less painful berenice w/ sleeping w/ pillow btw knees at night. Assessment PT Clinical Summary Pt called and stated she was doing better than previously. However due to outside factors unrelated to therapy, she requested to cancel her remaining appointments. She reports being satisfied with her progress thus and was educated previously on returning to therapy if needed at a later date. Thus pt plan of care is being discharged per patient request.
== END 2022-06-24 14:42 | disposition home or self-care (01) ==
LOC: ANHHIPT 09:00
PROVIDERS: PCP Family Medicine
DX: M54.2 Cervicalgia (principal); M54.12 Radiculopathy, cervical region; M54.16 Radiculopathy, lumbar region
CPT/HCPCS: 97014; 97110; 97140; G0283

== ENCOUNTER 2022-09-22 12:27 | Emergency (ER) | payer MEDICARE, SELFPAY ==
[2022-09-22 12:41] VITALS: BP 137/81; PULSE 105; RESP 21; TEMP 36.3; O2SAT 97
--- NOTE | 2022-09-22 12:48 | ED.URI ---
HPI - URI/Sore Throat General Chief Complaint: Upper Respiratory Infection Stated Complaint: HEADACHE/SINUS PRESSURE/EARACHE/RUNNY NOSE/COUGH Time Seen by Provider: 09/22/22 12:48 Source: patient and RN notes reviewed Mode of arrival: ambulatory Limitations: no limitations History of Present Illness HPI Narrative: 66-year-old female with history of COPD, type 2 DM, hypertension presented for complaint of sinus pressure, congestion and drainage for 3 weeks, and left ear pressure for a few days. States facial pressure is worse on the left cheek. Endorses history of chronic sinus infections, and will see ENT in October. Denies sob, wheezing, n/v/d/f/c. Taking Tylenol for pain, and Flonase daily. Smokes 1/2ppd. MD elicited complaint: cough Related Data Home Medications Medication Instructions Recorded Confirmed aspirin 81 mg tablet,delayed 81 mg PO DAILY 06/01/19 04/10/22 release (Adult Low Dose Aspirin) albuterol sulfate 2.5 mg/3 mL 2.5 mg inhalation QID PRN Wheezing 05/01/21 04/10/22 (0.083 %) solution for nebulization semaglutide 1 mg/dose (4 mg/3 mL) 1 mg subcut WEEKLY 10/15/21 04/10/22 subcutaneous pen injector (HeyKiki) gabapentin 300 mg capsule 300 mg PO DIRECTED 04/10/22 04/10/22 losartan 50 mg tablet 50 mg PO DAILY 04/10/22 04/10/22 metformin 500 mg tablet 500 mg PO DAILY 04/10/22 04/10/22 Allergies Allergy/AdvReac Type Severity Reaction Status Date / Time doxycycline Allergy Unknown unknown Verified 04/10/22 18:11 erythromycin base Allergy Unknown unknown Verified 04/10/22 18:11 tetracycline Allergy Unknown Unknown Verified 04/10/22 18:11 amoxicillin [From Augmentin] Allergy Unknown Verified 04/10/22 18:11 clavulanic acid Allergy Unknown Verified 04/10/22 18:11 [From Augmentin] all generic medications Allergy Unknown Uncoded 04/10/22 18:11 Review of Systems Review of Systems: CONSTITUTIONAL: Denies malaise, chills, sweats, fever EYES: Denies visual changes, redness, or discharge ENT: Reports rhinorrhea, congestion, sinus pain, otalgia CARDIOVASCULAR: Denies chest pain, palpitations, edema RESPIRATORY: Reports cough, post nasal drainage. Denies dyspnea GASTROINTESTINAL: Denies abdominal pain, nausea, vomiting, diarrhea SKIN: Denies rash or itching MUSCULOSKELETAL: Denies myalgia NEUROLOGIC: Denies headache [facility] Past Medical History Medical History Chronic obstructive pulmonary disease Essential hypertension Gastroesophageal reflux disease with esophagitis MDD (major depressive disorder), recurrent episode, moderate Mixed hyperlipidemia Tobacco abuse Type 2 diabetes mellitus with hyperglycemia Family History Family History Mother Family history of chronic obstructive pulmonary disease Family history of emphysema Family history of mental disorder, Onset Age: 83 Family history of alcoholism, Onset Age: 83 Family history of congestive heart failure, Onset Age: 83 Sibling Family history of malignant neoplasm Father Carcinoma of colon Other Diabetes mellitus Family history of cardiovascular disease Social History Social History Smoking packs per day: 1 Smoking cigarettes per day: 20.0 Years smoked: 45 Smoking pack-years: 45.00 Smoking status: Current every day smoker Tobacco type: cigarettes Second hand tobacco smoke exposure: Yes Alcohol intake: former Gender identity (if verbalized by the patient): Female Exam Narrative: GENERAL: well-appearing HEAD: Normocephalic EYES: PERRLA, conjunctivae clear ENT: Mucous membranes moist. TMs pearly viveros with dull light reflex bilaterally; no tragal tenderness. Oropharynx erythematous without lesions or exudate, no drooling, no hoarseness, no trismus, uvula midline. CHEST: Left anterior exp wheeze. No respira
== END 2022-09-22 13:00 | disposition home or self-care (01) ==
PROVIDERS: Emergency Provider Nurse Practitioner Family; PCP Family Medicine
DX: J06.9 Acute upper respiratory infection, unspecified (principal); F17.210 Nicotine dependence, cigarettes, uncomplicated; J44.9 Chronic obstructive pulmonary disease, unspecified; I10 Essential (primary) hypertension; K21.9 Gastro-esophageal reflux disease without esophagitis; E78.2 Mixed hyperlipidemia; E11.9 Type 2 diabetes mellitus without complications; Z79.84 Long term (current) use of oral hypoglycemic drugs; Z79.82 Long term (current) use of aspirin
CPT/HCPCS: 99213; G0463

== ENCOUNTER 2023-01-14 12:45 | Outpatient (CLI) | payer MEDICARE, SELFPAY ==
[2023-01-14 13:00] VITALS: PULSE 75; O2SAT 94
[2023-01-14 13:03] VITALS: O2SAT 87
[2023-01-14 13:05] VITALS: PULSE 114; O2SAT 92
[2023-01-14 13:15] VITALS: PULSE 81; O2SAT 94
--- NOTE | 2023-01-14 13:31 | HOMEO2EVAL ---
Evaluation was performed at [facility] Home Oxygen Evaluation RC: Home Oxygen (O2) Evaluation Start: 01/14/23 13:28 Freq: Status: Active Protocol: RPE Activity Type Activity Date Activity User E-sign Co-sign Detail Recorded Client Recorded Date Recorded By Document 01/14/23 13:00 SYLVESTER [email or web address] 01/14/23 13:30 SYLVESTER Document 01/14/23 13:03 SYLVESTER [email or web address] 01/14/23 13:30 SYLVESTER Document 01/14/23 13:05 SYLVESTER [email or web address] 01/14/23 13:30 SYLVESTER Document 01/14/23 13:15 SYLVESTER [email or web address] 01/14/23 13:30 SYLVESTER 01/14/23 01/14/23 01/14/23 13:00 13:03 13:05 Home O2 Evaluation [Oxygen] -Test Phase Resting Exercise Exercise -Oxygen Delivery Room Air Room Air Nasal Cannula -Oxygen Flow Rate (L/min) 2 [Pulse Oximetry] -Pulse Oximetry (90-100 %) 94 87 L 92 [Pulse Rate] -Pulse Rate (60-100 beats/min) 75 114 H [Exercise] -Ambulation Distance (feet) 1,000 -Ambulation Distance (meters) 304.78 [Comments] -Home Oxygen Evaluation Comments Pt requires 2 L home O2 with activity/ exertion [Charges] -Treatment Charges O2 Evaluation - Outpatient 01/14/23 13:15 Home O2 Evaluation [Oxygen] -Test Phase Resting -Oxygen Delivery Room Air -Oxygen Flow Rate (L/min) [Pulse Oximetry] -Pulse Oximetry (90-100 %) 94 [Pulse Rate] -Pulse Rate (60-100 beats/min) 81 [Exercise] -Ambulation Distance (feet) -Ambulation Distance (meters) [Comments] -Home Oxygen Evaluation Comments [Charges] -Treatment Charges
== END 2023-01-14 12:46 | disposition home or self-care (01) ==
PROVIDERS: PCP Family Medicine; Visit Provider Physician Assistant
DX: J44.9 Chronic obstructive pulmonary disease, unspecified (principal)
CPT/HCPCS: 94618

== ENCOUNTER 2023-02-22 15:36 | Outpatient (CLI) | payer MEDICARE, SELFPAY ==
--- NOTE | ~2023-02-22 | CT_ITS ---
EXAMINATION: CT diagnostic chest wo con DATE: 02/22/2023 15:55 INDICATION: Lung nodule follow-up TECHNIQUE: Computed tomography (CT) of the chest was performed without intravenous contrast. The dose -length product (DLP) was 140.92 mGy-cm. Automated exposure control and iterative reconstruction tech Acomplique were employed. COMPARISON: 06/11/2022, 06/10/2021 FINDINGS: The previously described 4 mm nodule of the right upper lobe is slightly decreased in size. There is mild emphysema. The lungs are free of acute opacities. No pleural effusion or pneumothorax. Calcified coronary artery atherosclerosis is noted. No pathologically enlarged thoracic lymph nodes are identified. The heart size is normal. IMPRESSION: 1. Slight decrease in size of the previously described right upper lobe nodule. Annual low-dose lung cancer screening CT is recommended. Reviewed, dictated and finalized at location F.
== END 2023-02-22 15:37 | disposition home or self-care (01) ==
PROVIDERS: PCP Family Medicine; Visit Provider Nurse Practitioner Family
DX: R91.1 Solitary pulmonary nodule (principal)
CPT/HCPCS: 71250

== ENCOUNTER 2023-03-04 14:19 | Outpatient (CLI) | payer MEDICARE, SELFPAY ==
--- NOTE | ~2023-03-04 | DEXA_ITS ---
Bone Density Report Name: NARESH QUINTERO Age: 67 Sex: Female Ethnicity: White Date of : 1955 Indication: postmenopausal; screening for osteoporosis; parental hip fracture; height loss; history of glucocorticoids; hysterectomy; Referring Provider: SABAS, YOVANNY Study: Bone densitometry was performed. Exam Date: March 04, 2023 Accession number: [id number] Bone Density: Region BMD T-score Z-score Classification AP Spine(L1-L4) 1.004 -0.4 1.5 Normal Femoral Neck (Left) 0.603 -2.2 -0.6 Osteopenia Total Hip (Left) 0.807 -1.1 0.2 Osteopenia Femoral Neck (Right) 0.644 -1.8 -0.3 Osteopenia Total Hip (Right) 0.850 -0.8 0.5 Normal Total Hip Mean 0.829 -1.0 0.4 Normal World Health Organization criteria for BMD impression classify patients as: Normal (T-score at or above -1.0), Osteopenia (T-score between -1.0 and -2.5), or Osteoporosis (T-score at or below -2.5). 10-year Fracture Risk(1): Major Osteoporotic Fracture 31% Hip Fracture 7.0% Reported Risk Factors: [place] (), Neck BMD=0.603, BMI=30.1, parental fracture, smoking, glucocorticoids (1) FRAX(R) Version 3.08. Fracture probability calculated for an untreated patient. Fracture probability may be lower if the patient has received treatment. Previous Exams: Region Exam Age BMD T-score BMD Change BMD Change Date g/cm2 vs Baseline vs Previous AP Spine (L1-L4) 03/04/2023 67 1.004 -0.4 -0.020 (-1.9%) -0.045 (-4.3%) 09/25/2020 64 1.049 0.0 0.025 (2.5%)* 0.008 (0.8%) 08/18/2018 62 1.041 -0.1 0.017 (1.7%) 0.017 (1.7%) 07/01/2015 59 1.024 -0.2 Total Hip(Left) 03/04/2023 67 0.807 -1.1 -0.168 (-17.2% -0.068 (-7.8%) 09/25/2020 64 0.876 -0.5 -0.100 (-10.2% -0.022 (-2.5%) 08/18/2018 62 0.898 -0.4 -0.077 (-7.9%) -0.077 (-7.9%) 07/01/2015 59 0.975 0.3 Total Hip(Right) 03/04/2023 67 0.850 -0.8 -0.137 (-13.8% -0.039 (-4.3%) 09/25/2020 64 0.889 -0.4 -0.098 (-9.9%) -0.066 (-6.9%) 08/18/2018 62 0.955 0.1 -0.032 (-3.3%) -0.032 (-3.3%) 07/01/2015 59 0.987 0.4 *Denotes significance at 95% confidence level, LSC for AP Spine = 0.022 g/cm2, LSC for Total Hip = 0.027 g/cm2 Clinical Information Provided by Patient: Parent has had a hip fracture Smokes Has taken Glucocorticoids Has the following medical conditions: Hysterectomy Patient maximum height was 63.0 Menopause Age: 49 No regular weight bearing exercise Drinks caffeinated beverages Onset
== END 2023-03-04 14:20 | disposition home or self-care (01) ==
PROVIDERS: PCP Family Medicine; Visit Provider Nurse Practitioner
DX: Z78.0 Asymptomatic menopausal state (principal); M85.852 Other specified disorders of bone density and structure, left thigh; M85.851 Other specified disorders of bone density and structure, right thigh
CPT/HCPCS: 77080

== ENCOUNTER 2023-04-13 14:26 | Outpatient (CLI) | payer MEDICARE, SELFPAY ==
--- NOTE | ~2023-04-13 | MM_ITS ---
EXAMINATION: MM screening alona BI w lizbet HISTORY: Screening mammogram TECHNIQUE: Craniocaudal and mediolateral oblique 3-D tomosynthesis images were obtained and synthetic 2-D images were generated. CAD analysis was submitted and interpreted. COMPARISON: June 22, 2021, May 22, 2020, August 18, 2018 bilateral screening mammogram examinatio ns BREAST PARENCHYMAL COMPOSITION: There are scattered areas of fibroglandular density. FINDINGS: There is no evidence of suspicious mass, calcification, or architectural distortion to sugg est malignancy in either breast. There has been no suspicious interval change. IMPRESSION: 1. No mammographic evidence of malignancy. 2. Recommend routine screening mammography in one year. BI-RADS Category 1: Negative Reviewed, dictated and finalized at location A. INTERMEDIATE
== END 2023-04-13 14:27 | disposition home or self-care (01) ==
LOC: ANHIMG 14:27
PROVIDERS: PCP Family Medicine; Visit Provider Nurse Practitioner
DX: Z12.31 Encounter for screening mammogram for malignant neoplasm of breast (principal)
CPT/HCPCS: 77063; 77067

== ENCOUNTER 2023-04-14 19:35 | Emergency (ER) | payer MEDICARE, SELFPAY ==
[2023-04-14 19:43] VITALS: BP 134/86; PULSE 99; RESP 16; TEMP 36.3; O2SAT 94
--- NOTE | 2023-04-14 19:44 | ED.URI ---
HPI - URI/Sore Throat General Chief Complaint: Upper Respiratory Infection Stated Complaint: Headache;Cough Time Seen by Provider: 04/14/23 19:44 Source: patient, RN notes reviewed and old records reviewed Mode of arrival: ambulatory Limitations: no limitations History of Present Illness HPI Narrative: 67 yo Patient presents to the [facility] with increased cough, congestion, generalized headache for the last 2-3 weeks. Patient states the cough has been getting worse over the last 2 weeks. Denies any fevers. States that she has not used her albuterol because she is not short of breath with her coughing. Patient states that she gets like this when she has ?an infection. ? Has not tried to contact her doctor Onset (ago): week(s) (2-3) Related Data Home Medications Medication Instructions Recorded Confirmed aspirin 81 mg tablet,delayed 81 mg PO DAILY 06/01/19 04/14/23 release (Adult Low Dose Aspirin) albuterol sulfate 2.5 mg/3 mL 2.5 mg inhalation QID PRN Wheezing 05/01/21 04/14/23 (0.083 %) solution for nebulization losartan 50 mg tablet 50 mg PO DAILY 04/10/22 04/14/23 metformin 500 mg tablet 500 mg PO DAILY 04/10/22 04/14/23 famotidine 40 mg tablet 40 mg PO DAILY 11/18/22 04/14/23 albuterol sulfate 90 mcg/actuation 2 inh inhalation Q4-6H PRN Wheezing 04/14/23 04/14/23 aerosol inhaler Allergies Allergy/AdvReac Type Severity Reaction Status Date / Time doxycycline Allergy Unknown unknown Verified 04/14/23 19:44 erythromycin base Allergy Unknown unknown Verified 04/14/23 19:44 tetracycline Allergy Unknown Unknown Verified 04/14/23 19:44 amoxicillin [From Augmentin] Allergy Unknown Verified 04/14/23 19:44 clavulanic acid Allergy Unknown Verified 04/14/23 19:44 [From Augmentin] all generic medications Allergy Unknown Uncoded 04/14/23 19:44 Review of Systems Review of Systems: All systems reviewed & are unremarkable except as noted in HPI and below Constitutional: Constitutional: Reports as per HPI and Reports headache(s) Eyes: Eyes: Reports no additional eye complaints ENT: Reports as per HPI and Reports nasal congestion Cardiovascular: Cardiovascular: Reports no additional cardiovascular complaints, Denies chest pain and Denies dyspnea Respiratory: Respiratory: Reports no additional respiratory complaints, Denies chest congestion, Denies cough and Denies dyspnea Gastrointestinal: Gastrointestinal: Reports no additional gastrointestinal complaints, Denies abdominal pain, Denies nausea and Denies vomiting Musculoskeletal: Musculoskeletal: Reports no additional musculoskeletal complaints Integumentary/Breasts: Skin/Breast: Reports system reviewed and no additional complaints, except as docu Neurologic: Reports system reviewed and no additional complaints, except as documented Psychiatric: Psychiatric: Reports no additional psychiatric complaints Allergic/Immunologic: Allergic/Immunologic: Reports no additional allergic/immunologic complaints [facility] Past Medical History Medical History Chronic obstructive pulmonary disease Essential hypertension Gastroesophageal reflux disease with esophagitis MDD (major depressive disorder), recurrent episode, moderate Mixed hyperlipidemia Tobacco abuse Type 2 diabetes mellitus with hyperglycemia Family History Family History (Reviewed 11/18/22 @ 13:06 by Milagros Mclain [facility]) Mother Family history of chronic obstructive pulmonary disease Family history of emphysema Family history of mental disorder, Onset Age: 83 Family history of alcoholism, Onset Age: 83 Family history of congestive heart failure, Onset Age: 83 Sibling Family history of malignant neoplasm Father Carcinoma of colon Other Diabetes mellitus Family history of cardiovascular disease Social History Social History Smoking packs per day:
== END 2023-04-14 20:00 | disposition home or self-care (01) ==
PROVIDERS: Emergency Provider Nurse Practitioner; PCP Family Medicine
DX: J44.0 Chronic obstructive pulmonary disease with (acute) lower respiratory infection (principal); J20.9 Acute bronchitis, unspecified; F17.210 Nicotine dependence, cigarettes, uncomplicated; I10 Essential (primary) hypertension; K21.00 Gastro-esophageal reflux disease with esophagitis, without bleeding; E78.2 Mixed hyperlipidemia; E11.9 Type 2 diabetes mellitus without complications; Z79.84 Long term (current) use of oral hypoglycemic drugs; Z79.82 Long term (current) use of aspirin
CPT/HCPCS: 99213; G0463

== ENCOUNTER 2023-04-26 00:59 | Emergency (ER) | payer MEDICARE, SELFPAY ==
[2023-04-26] VITALS (38 sets, daily range): BP systolic 101–148; BP diastolic 53–126; PULSE 77–133; RESP 13–26; TEMP 36.8; O2SAT 90–98
--- NOTE | ~2023-04-26 | XR_ITS ---
Clinical Indication: Chest pain PA and lateral views of the chest: Comparison: 09/09/2021 Findings: The lungs are clear, without evidence of focal consolidation or pleural effusion. Cardiome diastinal silhouette is within normal limits. Bones and soft tissues are unremarkable. Impression: Normal chest. Reviewed, dictated and finalized at location . DRIVER Impression: Normal chest.
--- NOTE | ~2023-04-26 | CT_ITS ---
Non-contrast Head CT History: Headache Technique: Axial non-contrast imaging of the brain was performed. Dose reduction technique was used on this scan by utilizing automated exposure control and iterative reconstruction technique. The dose -length product (DLP) was 605.33 mGy-cm. Findings: There is no evidence of intracranial hemorrhage, mass lesion, or acute infarct. Is a promi nent area of encephalomalacia in the left parietal lobe.. The ventricles and subarachnoid spaces are normal in size. The calvarium appears normal. The visualized paranasal sinuses and mastoid air aixa ls are clear. Impression: No acute abnormality seen. Prominent area of cystic encephalomalacia in the left parietal lobe. Reviewed, dictated and finalized at location . DER BEAM Impression: No acute abnormality seen. Prominent area of cystic encephalomalacia in the left parietal lobe.
--- NOTE | 2023-04-26 00:59 | ECG_ITS ---
Measurements Intervals [place] Rate: 93 P: 79 HI: 161 QRS: 52 QRSD: 136 T: 33 QT: 375 QTc: 466 Interpretive Statements SINUS RHYTHM RIGHT BUNDLE BRANCH BLOCK [120+ ms QRS DURATION, UPRIGHT V1, 40+ ms S IN I/aVL/V4/V5/V6] ABNORMAL ECG COMPARED TO ECG 04/06/2021 11:49:22 NO SIGNIFICANT CHANGES Electronically Signed On 04-26-2023 16:57:41 TAR HEATER OPERATOR by Jose Antonio Yao M.D.
[2023-04-26 01:42] LABS: Basophils Absolute Auto 0.1 K/mm3 (0.0-0.1); Basophils Percent Auto 0.5 % (0.2-1.2); Eosinophils Absolute Auto 0.3 K/mm3 (0-0.3); Eosinophils Percent Auto 2.6 % (0-4.4); Hematocrit 44.1 % (37.0-47.0); Hemoglobin 13.8 g/dL (12.0-15.0); Immature Granulocyte Absolute 0.11 K/mm3 (0.00-0.031); Immature Granulocyte Percent A 0.8 % (0-0.5); Lymphocytes Absolute Auto 4.69 K/mm3 (0.9-3.2); Lymphocytes Percent Auto 35.4 % (18.3-44.2); Mean Corpuscular HGB Conc 31.3 g/dl (32-36); Mean Corpuscular Volume 89.6 fl (80-100); Mean Platelet Volume 10.6 fl (7.4-10.4); Monocytes Absolute Auto 0.6 K/mm3 (0.1-0.6); Monocytes Percent Auto 4.6 % (2.6-8.5); Neutrophils Absolute Auto 7.4 K/mm3 (1.3-6.7); Neutrophils Percent Auto 56.1 % (45.5-73.1); Platelet Count Result 353 k/mm3 (150-375); Red Blood Count 4.92 M/mm3 (4.2-5.4); Red Cell Distribution Width 13.9 % (11.5-14.5); White Blood Count 13.3 K/mm3 (4.5-10.0)
[2023-04-26 01:43] LABS: Alanine Aminotransferase 26 U/L (6-35); Albumin Level 4.5 g/dL (3.5-5.1); Alkaline Phosphatase 126 U/L (38-126); Anion Gap 14 mmol/L (8-16); Aspartate Amino Transferase 25 U/L (14-36); Bilirubin,Total 0.4 mg/dL (0.2-1.3); Blood Urea Nitrogen 24 mg/dL (7-17); Calcium 9.7 mg/dL (8.4-10.2); Carbon Dioxide 24 mmol/L (22-30); Chloride 101 mmol/L (98-107); Estimated CRCL calculation 74 ml/min; Estimated Glomerular Filt Rate > 60; Glucose 134 mg/dL (65-110); Lipase 78 U/L (23-300); Potassium 3.8 mmol/L (3.4-5.0); Sodium 139 mmol/L (137-145)
--- NOTE | 2023-04-26 01:43 | ED.CHESTPAIN ---
HPI - Chest Pain General Chief Complaint: Chest Pain Stated Complaint: Chest pain Time Seen by Provider: 04/26/23 01:23 History of Present Illness HPI narrative: patient presents emergency department with her from home. Complained of epigastric pain that radiates into her back for the past 3 weeks. Worse when she is standing up cooking. She also notes a new diffuse headache that she has not had in the past. Taking Tylenol at home without improvement. Denies any numbness or weakness. Started on B12 shots roughly the same time that these symptoms started. Has nausea and vomiting. She also started back on amitriptyline 6 months to go. Related Data Home Medications Medication Instructions Recorded Confirmed aspirin 81 mg tablet,delayed 81 mg PO DAILY 06/01/19 04/14/23 release (Adult Low Dose Aspirin) albuterol sulfate 2.5 mg/3 mL 2.5 mg inhalation QID PRN Wheezing 05/01/21 04/14/23 (0.083 %) solution for nebulization losartan 50 mg tablet 50 mg PO DAILY 04/10/22 04/14/23 metformin 500 mg tablet 500 mg PO DAILY 04/10/22 04/14/23 famotidine 40 mg tablet 40 mg PO DAILY 11/18/22 04/14/23 albuterol sulfate 90 mcg/actuation 2 inh inhalation Q4-6H PRN Wheezing 04/14/23 04/14/23 aerosol inhaler Allergies Allergy/AdvReac Type Severity Reaction Status Date / Time doxycycline Allergy Unknown unknown Verified 04/14/23 19:44 erythromycin base Allergy Unknown unknown Verified 04/14/23 19:44 tetracycline Allergy Unknown Unknown Verified 04/14/23 19:44 amoxicillin [From Augmentin] Allergy Unknown Verified 04/14/23 19:44 clavulanic acid Allergy Unknown Verified 04/14/23 19:44 [From Augmentin] all generic medications Allergy Unknown Uncoded 04/14/23 19:44 Review of Systems Review of Systems: Negative except for what is documented in the HPI [facility] Past Medical History Medical History Chronic obstructive pulmonary disease Essential hypertension Gastroesophageal reflux disease with esophagitis MDD (major depressive disorder), recurrent episode, moderate Mixed hyperlipidemia Tobacco abuse Type 2 diabetes mellitus with hyperglycemia Family History Family History Mother Family history of chronic obstructive pulmonary disease Family history of emphysema Family history of mental disorder, Onset Age: 83 Family history of alcoholism, Onset Age: 83 Family history of congestive heart failure, Onset Age: 83 Sibling Family history of malignant neoplasm Father Carcinoma of colon Other Diabetes mellitus Family history of cardiovascular disease Social History Social History Smoking packs per day: 1 Smoking cigarettes per day: 20.0 Years smoked: 45 Smoking pack-years: 45.00 Smoking status: Current every day smoker Tobacco type: cigarettes Second hand tobacco smoke exposure: Yes Alcohol intake: former Substance use: never Substance use type: does not use Living arrangements: with family Gender identity (if verbalized by the patient): Female Exam Narrative: GENERAL: Well-appearing, well-nourished, and in no acute distress. HEAD: Normocephalic, atraumatic. EYES: PERRLA and EOMI. ENT: Nares clear, no rhinorrhea or epistaxis. Mucous membranes moist. NECK: Supple. CHEST: Clear to auscultation. No respiratory distress. HEART: Regular rate and rhythm. ABDOMEN: Soft, nontender, nondistended. EXTREMITIES: Normal range of motion. No edema. SKIN: Warm, dry, no rash. NEURO: No focal deficits. Alert and oriented x3. PSYCH: Normal mood and affect. Course Course Emergency Course: differential diagnosis includes but not limited to GERD, colitis, pancreatitis, acute cholecystitis, migraine, CAD abdomen soft and nontender some decreased concern for any acute intra-abdominal
[2023-04-26] MEDS: METOCLOPRAMIDE HCL INJ 10 MG/2 ML VIAL IV PUSH (01:44)
[2023-04-26] MEDS: KETOROLAC 15 MG/ML VIAL (*BKC) IV PUSH (01:44)
[2023-04-26] MEDS: diphenhydrAMINE HCl INJ 50 MG/ML VIAL 25 MG IV PUSH (01:45)
[2023-04-26 01:46] LABS: INR 0.9
[2023-04-26 01:47] LABS: Partial Thromboplastin Time 28.1 SECONDS (22.3-36.8)
[2023-04-26 01:54] LABS: Troponin I < 0.012 ng/mL (0.000-0.034)
[2023-04-26] MEDS: ASPIRIN 81 MG CHEWABLE TABLET 324 MG PO (03:48)
--- NOTE | 2023-04-26 03:48 | PC.NURSE ---
Pt initially reported that cp was down to 1/10 post migraine cocktail. Now states that she fell asleep, but woke up with increased cp. ASA administered.
[2023-04-26 04:48] LABS: Troponin I 0.014 ng/mL (0.000-0.034)
--- NOTE | 2023-04-26 06:26 | ECG_ITS ---
Measurements Intervals [place] Rate: 76 P: 78 DE: 177 QRS: 22 QRSD: 150 T: 55 QT: 421 QTc: 476 Interpretive Statements SINUS RHYTHM RIGHT BUNDLE BRANCH BLOCK [120+ ms QRS DURATION, UPRIGHT V1, 40+ ms S IN I/aVL/V4/V5/V6] ABNORMAL ECG COMPARED TO ECG 04/26/2023 01:06:51 NO SIGNIFICANT CHANGES Electronically Signed On 04-26-2023 16:59:14 SWITCHBOARD RECEPTIONIST by Jose Antonio Yao M.D.
[2023-04-26 06:57] LABS: Troponin I < 0.012 ng/mL (0.000-0.034)
--- NOTE | 2023-04-26 07:06 | PC.NURSE ---
Report to JONAS Barrera
== END 2023-04-26 07:44 | disposition home or self-care (01) ==
PROVIDERS: Emergency Provider Emergency Medicine; PCP Family Medicine
DX: G44.89 Other headache syndrome (principal); M54.6 Pain in thoracic spine; R07.89 Other chest pain; K21.9 Gastro-esophageal reflux disease without esophagitis; J44.9 Chronic obstructive pulmonary disease, unspecified; I10 Essential (primary) hypertension; F17.210 Nicotine dependence, cigarettes, uncomplicated; Z79.84 Long term (current) use of oral hypoglycemic drugs
CPT/HCPCS: 36415; 70450; 71046; 80053; 83690; 84484; 85025; 85610; 85730; 93005; 96374; 96375; 99284; A9270; J1200; J1885; J2765

== ENCOUNTER 2023-10-14 14:15 | Outpatient (RCR) | payer MEDICARE, SELFPAY ==
--- NOTE | 2023-09-14 17:03 | PTOPEVAL1 ---
Assessment and note entered by Franny Flores, PT Evaluation Information Assessment Status Evaluation Diagnosis tension headache Therapy conditions cervicalgia, abnormal posture Onset April 2023 Subjective Information Went to ER Apr 29, had a headache of 10/10. Did a CT scan, heart bloodwork, and a migraine cocktail. When everything was done was told it was related to stress. Also had chest pain and they came at the same time. Also went to ENT and came back fine. Stress test shows no issues Was unable to do any extra activities other than dishes. Reported is off balance and feels weird , it still hurts but doesn't feel right. Head feels sloshy , when walks is ok but needs to go slower Neurologist gave Lyrica and this drastically helped her headache. That first night with lyrica had immediate relief. Also went back to eye doctor who stated her eyes were straining and this was cause of head ache. States is going to be wearing therapy glasses to decrease the strain on her eyes. Goes back on September 15, may or may not be in yet. Left side of neck is also bothering her. Does not know what is causing this. Reported Pain Level Pain Score 4: Self Report Assessment PT Clinical Summary Pt presents with complaints of severe headache. Went to multiple specialists for diagnosis. Most effective pain control with lyrica currently. Pt has history of arthritis and pain in lumbar, thoracic, and cervical spine. Pt demo's severely abnormal postures, severely decreased mobility of the thoracic spine, moderately decreased mobility of the cervical spine, increased tonicity of multiple muscles in the cervical spine, and improvement in headache symptoms with cervical distraction. Pt will greatly benefit from physical therapy in order to address deficits and improve function. Plan of Care Interventions Electrical Stimulation,Hot Pack/Cold Pack,Manual Therapy,Mechanical Traction,Patient/Caregiver Educati,Therapeutic Activities,Therapeutic Exercise,Self-Care/Home Management,Ultrasound, Other
--- NOTE | 2023-09-14 17:05 | OPREHPOC ---
Outpatient Therapy Plan of Care This is a Multidisciplinary Plan of Care that may contain components documented by all disciplines (PT, OT, and ST.) PT Goal 1 Goal Pt will be independent in HEP Pt will verbalize understanding of diagnosis and prognosis Target Visit 10 PT Problem 2 PT Problem #2 Pain PT Goal 1 Goal Pt will report lowest pain rating at 0/10 to show improvement in overall discomfort Target Visit 10 PT Goal 2 Goal Pt will report highest level of pain t 6/10 with normal higher level ADLs and activities such as sweeping and cleaning house. Target Visit 20 PT Problem 3 PT Problem #3 Impaired Range of Motion PT Goal 1 Goal Pt will demo L cervical rotation equal to right rotation Target Visit 10 PT Goal 2 Goal Thoracic ROM will demo lateral flexion and rot shaan of 75% or greater Target Visit 20
--- NOTE | 2023-10-06 14:39 | PCPTNOTE ---
Patient was 30 minutes late for appointment this date stating her print out had 3:45 as her time. She was encouraged to bring her print-out next session to assess technical issues versus misread schedule or miscommunication.
--- NOTE | 2023-10-11 13:42 | PCPTNOTE ---
Patient called & cancelled scheduled appointment this date due to her low back hurting.
--- NOTE | 2023-11-15 11:47 | PCPTNOTE ---
Admitting Provider: Attending Provider: Baljeet Abreu Patient:Cherelle Menendez Date of :1955 Patient has not returned for any further treatments since 10/14/2023, therefore she will be discharged at this time. Patient?s initial visit was on 09/14/2023 10:45 and she had a total of 6 visits. She had been attending therapy consistently for her headache, but as of last visit she stated she wanted to address other deficits prior to continuing therapy. The goals have not been met Thank you for referring this patient to [facility]. Please review, sign, date and return this discharge summary JODY. I have been updated about the patient's current status and I agree with discharge from the above service at this time. Referring Physician Date
== END 2023-11-15 13:04 | disposition home or self-care (01) ==
LOC: ANHHIPT 14:15
DX: G44.229 Chronic tension-type headache, not intractable (principal)
CPT/HCPCS: 97012; 97014; 97110; 97112; 97140; 97163; 97530; G0283

== ENCOUNTER 2023-12-20 17:01 | Outpatient (CLI) | payer MEDICARE, SELFPAY ==
[2023-12-20 17:22] LABS: Add Urine Microscopic? NO; Appearance Urine Clear (Clear); Bilirubin Urine Negative (Negative); Blood Urine Negative (Negative); Color Urine Yellow (Yellow); Glucose Urine UA Negative (Negative); Ketones Urine Negative (Negative); Leukocyte Esterase Ur Negative LEU/UL (Negative); Nitrate Urine Negative (Negative); Protein Urine Negative (Negative); Specific Grav Ur 1.014 (1.001-1.035); Urobilinogen Urine 0.2 mg/dL (<2.0)
== END 2023-12-20 17:02 | disposition home or self-care (01) ==
LOC: ANHLAB 17:04
PROVIDERS: PCP Student in an Organized Health Care Education/Training Program; Visit Provider Physician Assistant
DX: R39.9 Unspecified symptoms and signs involving the genitourinary system (principal)
CPT/HCPCS: 81003

== ENCOUNTER 2024-07-23 14:01 | Outpatient (CLI) | payer MEDICARE, SELFPAY ==
--- NOTE | ~2024-07-23 | CT_ITS ---
CT Scan of the Chest without Contrast: Clinical Indication: Lung cancer screening, nicotine dependence Technique: Contiguous sections were acquired throughout the chest without intravenous contrast. Dose reduction technique was used on this scan by utilizing automated exposure control and iterative recon struction technique. The dose-length product (DLP) was 115.03 mGy-cm. COMPARISON: 02/22/2023 Findings: There is no evidence of any significant mediastinal, hilar or axillary lymphadenopathy. The mediastin al soft tissues appear normal. There is no evidence of pleural or pericardial effusion. The lungs are clear. No pulmonary nodules or infiltrates are noted. Images through the upper abdomen reveal no abnormalities. Impression: Lung RADS 1: Negative. 12 month follow-up screening CT advised. Reviewed, dictated and finalized at location . Impression: Lung RADS 1: Negative. 12 month follow-up screening CT advised.
--- OUTSIDE RECORDS SUMMARY | 2024-07-23 16:15 | XMS_ITS | Encounter Summary ---
Author Organization [facility] Address [address] [place] [address] Phone Care Team Providers Care Vacation Sales Advisor Name Role Phone Ivon Triplett APRPankaj FIELD AUTO APPRAISER Unavailable James Phoenix MD Primary Care Provider [phone] Susan Carmona MD Unavailable [phone] Cari Marvin DO Primary Care Provider [phone] Cari Marvin DO Primary Care Provider [phone] Saran Ken MD Primary Care Provider [phone] Donny Antonio MD Unavailable [phone] Alida Castillo MD Unavailable Reason for Visit * Reason Comments Medication Refill Encounter Details Date Type Department Care Team (Late st Contact Info) Description 09/14/2023 Refill [facility] - Family Medicine [facility] [address] [place] [address] James Phoenix MD [address] [place] [address] Medication Refill Social History Tobacco Use Types Packs/Day Years Used Date Smoking Tobacco: Every Day Cigarettes 0.5 49.5 Started: 01/29/1972; Last attempted to quit: 08/05/2021 Smokeless Tobacco: Never Comments:It's time for me to quit smoking. I would like to try the patch if my insurance will pay for it. Alcohol Use Standard Drinks/Week Comments Not Currently 0 (1 standard drink = 0.6 oz pur e alcohol) [facility] Utilities Answer Date Recorded In the past 12 months has th e electric, gas, oil, or water company threatened to shut off services in your home? No 08/02/2023 Social Connection and Isolation Panel [NHANES] A nswer Date Recorded In a typical week, how many times do you talk on the phone with family, friends, or neighbors? Once a week 08/02/2023 How often do you get together with friends or re latives? Once a week 08/02/2023 How often do you attend mormon or adventist serv ices? Never 08/02/2023 Do you belong to any clubs o r organizations such as mormon groups, unions, fraternal or athletic groups, or school groups? No 08/02/2023 How often do you attend meet ings of the clubs or organizations you belong to? Never 08/02/2023 Are you , , di vorced, , never , or living with a partner? 08/02/2023 AUDIT-C Answer Date Recorded Q1: How often do you have a drink containing alcohol? Never 08/02/2023 Q2: How many drinks containi ng alcohol do you have on a typical day when you are drinking? Patient does not drink Q3: How often do you have si x or more drinks on one occasion? Never 08/02/2023 Overall Financial Resource Strain (CARDIA) Answe r Date Recorded How hard is it for you to pa y for the very basics like food, housing, medical care, and heating? Not very hard 08/02/2023 PHQ-2 Answer Date Recorded Total Score - Questions 1-9 0 10/16 [facility] of Occupat ional Health - Occupational Stress Questionnaire Answer Date Recorded Do you feel stress - tense, restless, nervous, or anxious, or unable to sleep at night because your mind is troubled all the time - these days? To some extent 08/02/2023 Exercise Vital Sign Answer Date Recorde d On average, how many days pe r week do you engage in moderate to strenuous exercise (like a brisk walk)? 0 days 08/02/2023 On average, how many minutes do you engage in exercise at this level? 0 min 08/02/2023 Hunger Vital Sign Answer Date Recorded Within the past 12 months, y ou worried that your food would run out before you got the money to buy more. Never true 08/02/19 24 Within the past 12 months, t he food you bought just didn't last and you didn't have money to get more. Never true 08/02/2023 PRAPARE - Transportation Answer Date Re corded In the past 12 months, has l ack of transportation kept you from medical appointments or from getting medications? No 07/14 In the past 12 months, has l ack of transportation kept you from meetings, work, or from getting things needed for daily living? No 08/02/2023 Housing Stability Vital Sign Answer Oscar e Recorded In the last 12 months, was t here a time when you were not able to pay the mortgage or rent on time? No 08/02/2023 Number of Places Lived in the Last Year Not on f ile 08/02/2023 In the last 12 months, was t here a time when you did not have a steady place to sleep or slept in a intermediate (including now)? No 08/02/2023 Education Answer Date Recorded What is the highest level of school you have completed or the highest degree you have received? 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 Requested Prescriptions Pending Prescriptions Disp Refills Potassium Chloride ER (KLORCON) 20 MEQ Tablet Controlled Release [Pharmacy Med Name: POTASSIUM CHLORIDE 20MEQ ER TABLETS] 90 Tablet 1 Sig: TAKE 1 TABLET BY MOUTH DAILY Potassium Supplement Protocol Passed - 09/14/2023 9:43 AM Passed - Normal serum potassium in past 12 months POTASSIUM Date Value Ref Range Status 03/18/2023 4.0 3.5 - 5.1 mmol/L Final Passed - Visit with relevant provider in past 12 months or upcoming 90 days Recent Visits Date Type Provider Dept 08/04/23 Office Visit James Phoenix MD [facility] 07/04/23 Office Visit Baljeet Abreu APRN, [facility] 05/27/23 Office Visit Baljeet Abreu [facility] 03/17/23 Office Visit James Phoenix MD [facility] 12/30/22 Office Visit James Phoenix MD [facility] 11/12/22 [facility] Showing recent visits within past 365 days and meeting all other requirements Future Appointments No visits were found meeting these conditions. Showing future appointments within next 90 days and meeting all other requirements documented in this encounter Plan of Treatment Upcoming Encounters Date Type Department Care Team (Late st Contact Info) Description 08/03/2024 11:30 AM CDT Office Visit [facility] Medical Group - Cardiology - [place] [address] [place] [address] Chiquis Kaplan APRN, FIELD AUTO APPRAISER [address] [place] [address] 10/11/2024 2:00 PM CDT Office Visit [facility] - Endocrinology - [place] [address] [place] [address] Alida Castillo MD [address] [address] 10/30/2024 2:45 PM CDT Office Visit [facility] - [facility] [address] [place] [address] Saran Ken MD [address] [address] documented as of this encounter Visit Diagnoses Not on filedocumented in this encounter Additional Health Concerns Assessment Noted Time PHQ-9 Depression Total Score: 0 11/13/19 23 1:55 PM CDT documented as of this encounter Care Teams Vacation Sales Advisor Relationship Specialty Start Date End Date James Phoenix MD PCP - General Family Medicine 04/11/20 01/12/24 Cari Marvin DO 2 [facility] [address] [address] PCP - General Family Medicine 01/13/24 02/15/24 Cari Marvin DO 2 [facility] [address] [address] PCP - General Family Medicine 02/24/24 03/12/24 Saran Ken MD [address] [facility] [address] PCP - General Family Medicine 03/13/24 Ivon Triplett, [employer], FIELD AUTO APPRAISER Nurse Practitioner Advanced Practice Nurse 05/25/16 Susan Carmona MD [address] [place] [address] Consulting Physician Gastroenterology 04/22/22 Donny Antonio MD [address] [place] [address] Consulting Physician Neurology 03/22/24 Alida Castillo MD [address] [address] Consulting Physician Endocrinology 07/13/24 documented as of this encounter
--- OUTSIDE RECORDS SUMMARY | 2024-07-23 16:15 | XMS_ITS | Encounter Summary ---
Author Organization [facility] Address [address] [place] [address] Phone Care Team Providers Care Head Sampler Name Role Phone Ivon Triplett APRPankaj GROUNDWATER PROGRAMS DIRECTOR Unavailable [phone] James Phoenix MD Primary Care Provider [phone] Susan Carmona MD Unavailable [phone] Cari Marvin DO Primary Care Provider [phone] Cari Marvin DO Primary Care Provider [phone] Saran Ken MD Primary Care Provider [phone] Donny Antonio MD Unavailable Alida Castillo MD Unavailable Reason for Visit * Reason Onset Date Comments Medication Refill 08/18/2020 Encounter Details Date Type Department Care Team (Late st Contact Info) Description 08/18/2020 Refill [facility] - [facility] [address] [place] [address] James Phoenix MD [address] [place] [address] Medication Refill Social History Tobacco Use Types Packs/Day Years Used Date Smoking Tobacco: Every Day Cigarettes 0.5 40 Smokeless Tobacco: Never Alcohol Use Standard Drinks/Week Comments Not Currently 0 (1 standard drink = 0.6 oz pur e alcohol) rarely PHQ-2 Answer Date Recorded Total Score - Questions 1-9 0 05/2019 Sexually Active Control Partners Comments Not Currently Comments No Sex and Gender Information Value Date Recorded Sex Assigned at Not on file Legal Sex Female 11:01 PM CDT Gender Identity Not on file Sexual Orientation Not on file 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 Requested Prescriptions Pending Prescriptions Disp Refills Accu-Chek Guide Strip 300 Strip 3 Sig: Use 1 strip to test blood glucose three times daily Endocrinology: Diabetes Testing Supplies Passed - 08/18/2020 4:14 PM Passed - Valid encounter within last 12 months Past Office Visits Recent Outpatient Visits 1 month ago Anxiety [facility] - James Cabrera MD 2 months ago [facility] 3 months [facility]inary [facility], GROUNDWATER PROGRAMS DIRECTOR 4 months ago Anxiety [facility] - James Cabrera MD 5 months ago Essential hypertension [facility] James Cabrera MD Upcoming Appointments Future Appointments In 1 month James Phoenix MD [facility] - Recent and Past Visits Recent Visits Date Type Provider Dept 07/03/20 Office Visit James Phoenix MD [facility] 06/17/20 Telemedicine James Phoenix MD [facility] 05/05/20 Office Visit Amberly Galeano APN, GROUNDWATER PROGRAMS DIRECTOR [facility] 04/11/20 Office Visit James Phoenix MD [facility] 03/17/20 Office Visit James Phoenix MD [facility] 02/14/20 Office Visit James Phoenix MD [facility] Showing recent visits within past 460 days with a meds authorizing provider and meeting all other requirements Future Appointments Date Type Provider Dept 09/30/20 Appointment James Phoenix MD [facility] Showing future appointments within next 90 days with a meds authorizing provider and meeting all other requirements * Telephone Encounter - Aileen Stockton - 08/18/2020 4:13 PM CDT Received a faxed Rx request from pharmacy. Reordered refill medication(s) requested and pended for nurse and physician/THUY review. Refill encounter routed to nurse [email or web address] for processing. documented in this encounter Plan of Treatment Upcoming Encounters Date Type Department Care Team (Late st Contact Info) Description 08/03/2024 11:30 AM CDT Office Visit [facility] - Cardiology - [place] [address] [place] [address] Chiquis Kaplan APRN, MARYAN [address] [place] [address] 10/11/2024 2:00 PM CDT Office Visit [facility] - Endocrinology - [place] [address] [place] [address] Alida Castillo MD #[address] [place] [phone] 10/30/2024 2:45 PM CDT Office Visit [facility] - Family Medicine - [place] [address] [place] [phone] Saran Ken MD #[address] [address] documented as of this encounter Visit Diagnoses Not on filedocumented in this encounter Additional Health Concerns Infection Onset Date Last Indicated Resolved Time COVID - 19 05/18/2021 05/18/2021 06/07/2021 12:1 6 AM AUTO BENCH MECHANIC Assessment Noted Time PHQ-9 Depression Total Score: 0 02/14/20 1:00 PM CDT documented as of this encounter Care Teams Head Sampler Relationship Specialty Start Date End Date James Phoenix MD PCP - General Family Medicine 04/11/20 01/12/24 Cari Marvin DO 2 [facility] [address] [address] PCP - General Family Medicine 01/13/24 02/15/24 Cari Marvin DO [address] [address] PCP - General Family Medicine 02/24/24 03/12/24 Saran Ken MD #[address] [address] PCP - General Family Medicine 03/13/24 Ivon Triplett APRN, GROUNDWATER PROGRAMS DIRECTOR Nurse Practitioner Advanced Practice Nurse 05/25/16 Susan Carmona MD [address] [place] [address] Consulting Physician Gastroenterology 04/22/22 Donny Antonio MD [address] [place] [phone] Consulting Physician Neurology 03/22/24 Alida Castillo MD #[address] [phone] Consulting Physician Endocrinology 07/13/24 documented as of this encounter
--- OUTSIDE RECORDS SUMMARY | 2024-07-23 16:15 | XMS_ITS | Encounter Summary ---
Author Organization [facility] Address [address] [place] [address] Phone Care Team Providers Care Baster Hand Name Role Phone Ivon Triplett APRPankaj REEL WINDER Unavailable James Phoenix MD Primary Care Provider [phone] Susan Carmona MD Unavailable [phone] Cari Marvin DO Primary Care Provider Cari Marvin DO Primary Care Provider Saran Ken MD Primary Care Provider [phone] Donny Antonio MD Unavailable [phone] Alida Castillo MD Unavailable Reason for Visit * Reason Comments Medication Refill Encounter Details Date Type Department Care Team (Late st Contact Info) Description 09/19/2022 Refill [facility] Family [facility] [address]2 [place] [address] James Phoenix MD [address] [place] [address] Medication Refill Social History Tobacco Use Types Packs/Day Years Used Date Smoking Tobacco: Every Day Cigarettes 0.5 40 Smokeless Tobacco: Never Alcohol Use Standard Drinks/Week Comments Not Currently 0 (1 standard drink = 0.6 oz pur e alcohol) PHQ-2 Answer Date Recorded Total Score - Questions 1-9 0 120 10/2020 Education Answer Date Recorded What is the highest level of school you have completed or the highest degree you have received? 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 Requested Prescriptions Pending Prescriptions Disp Refills Jardiance 10 MG Tablet [Pharmacy Med Name: JARDIANCE 10MG TABLETS] 90 Tablet 0 Sig: TAKE 1 TABLET BY MOUTH DAILY SGLT2 Inhibitors Protocol Failed - 09/19/2022 3:05 PM Failed - HgA1C on record in past 6 months HGB-A1C Date Value Ref Range Status 03/11/2022 10.7 (A) 4 - 6 Final Failed - GFR greater than or equal to 30 in past 6 months GFR, EST. NONAFRICAN Date Value Ref Range Status 03/11/2022 >60 >=60 Final Passed - Visit with relevant provider in past 6 months or upcoming 90 days Recent Visits Date Type Provider Dept 04/13/22 Office Visit Leslie Craven APRN, REEL WINDER [facility] Showing recent visits within past 182 days and meeting all other requirements Future Appointments No visits were found meeting these conditions. Showing future appointments within next 90 days and meeting all other requirements documented in this encounter Plan of Treatment Upcoming Encounters Date Type Department Care Team (Late st Contact Info) Description 08/03/2024 11:30 AM CDT [facility] - [place] [address]2 [place] [phone] Chiquis Kaplan APRN, REEL WINDER [address] [place] [address] 10/11/2024 2:00 PM CDT Office Visit [facility] - Endocrinology - [place] [address]2 [place] [phone] Alida Castillo MD #[address] [place] [phone] 10/30/2024 2:45 PM CDT Office Visit [facility] - Family Medicine - [place] [address] [place] [phone] Saran Ken MD #[address] [address] documented as of this encounter Visit Diagnoses Not on filedocumented in this encounter Additional Health Concerns Assessment Noted Time PHQ-9 Depression Total Score: 0 02/14/20 1:00 PM CDT documented as of this encounter Care Teams Baster Hand Relationship Specialty Start Date End Date James Phoenix MD PCP - General Family Medicine 04/11/20 01/12/24 Cari Marvin DO [address] [address] PCP - General Family Medicine 01/13/24 02/15/24 Cari Marvin DO 2 [facility] [address] [place] [address] PCP - General Family Medicine 02/24/24 03/12/24 Saran Ken MD #[address] [address] PCP - General Family Medicine 03/13/24 Ivon Triplett APRN, REEL WINDER Nurse Practitioner Advanced Practice Nurse 05/25/16 Susan Carmona MD [address] [place] [address] Consulting Physician Gastroenterology 04/22/22 Donny Antonio MD #2 [place] [phone] Consulting Physician Neurology 03/22/24 Alida Castillo MD #[address] [phone] Consulting Physician Endocrinology 07/13/24 documented as of this encounter
--- OUTSIDE RECORDS SUMMARY | 2024-07-23 16:15 | XMS_ITS | Encounter Summary ---
Author Organization [facility] Address [address] [place] [address] Phone Care Team Providers Care Associate Application Developer Name Role Phone Ivon Triplett APRPankaj CASHIER CREDIT Unavailable James Phoenix MD Primary Care Provider [phone] Susan Carmona MD Unavailable [phone] Cari Marvin DO Primary Care Provider Cari Marvin DO Primary Care Provider Saran Ken MD Primary Care Provider [phone] Donny Antonio MD Unavailable [phone] Alida Castillo MD Unavailable Reason for Visit * Reason Comments Medication Refill Encounter Details Date Type Department Care Team (Late st Contact Info) Description 04/17/2022 Refill [facility] - Family Medicine [facility] [address] [place] [address] James Phoenix MD [address] [place] [address] Medication Refill Social History Tobacco Use Types Packs/Day Years Used Date Smoking Tobacco: Every Day Cigarettes 0.5 40 Smokeless Tobacco: Never Alcohol Use Standard Drinks/Week Comments Not Currently 0 (1 standard drink = 0.6 oz pur e alcohol) PHQ-2 Answer Date Recorded Total Score - Questions 1-9 0 10/2020 Education Answer Date Recorded What is [...] 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 No / Unsure 04/12/2022 11:50 PM DONOR SUPPORT TECHNICIAN documented as of this encounter Miscellaneous Notes * Telephone Encounter - Analisa Hernandez RN - 04/19/2022 8:00 AM DONOR SUPPORT TECHNICIAN Medication warning. Per nursing clinical judgement, provider to review and approve the medication(s) order(s) if appropriate. Requested Prescriptions Pending Prescriptions Disp Refills pantoprazole (PROTONIX) 40 MG Tablet Delayed Response [Pharmacy Med Name: PANTOPRAZOLE 40MG TABLETS] 90 Tablet 1 Sig: TAKE 1 TABLET BY MOUTH DAILY Proton Pump Inhibitors Protocol Passed - 04/17/2022 10:36 AM Passed - Visit with relevant provider in past 12 months or upcoming 90 days Recent Visits Date Type Provider Dept 04/13/22 Office Visit Leslie Craven APRN, MARYAN [facility] 03/11/22 Office Visit James Phoenix MD [facility] 10/08/21 Office Visit James Phoenix MD [facility] 06/04/21 Office Visit James Phoenix MD [facility] 04/20/21 Office Visit Amberly Galeano APRN, [facility] Showing recent visits within past 365 days and meeting all other requirements Future Appointments Date Type Provider Dept 07/13/22 Appointment Leslie Craven APRN, [facility] Showing future appointments within next 90 days and meeting all other requirements atorvastatin (LIPITOR) 80 MG Tablet [Pharmacy Med Name: ATORVASTATIN 80MG TABLETS] 90 Tablet 3 Sig: TAKE 1 TABLET BY MOUTH DAILY Hmg CoA Reductase Inhibitors Protocol Passed - 04/17/2022 10:36 AM Passed - Visit with relevant provider in past 12 months or upcoming 90 days Recent Visits Date Type Provider Dept 04/13/22 Office Visit Leslie Craven APRN, MARYAN [facility] 03/11/22 Office Visit James Phoenix MD [facility] 10/08/21 Office Visit James Phoenix MD [facility] 06/04/21 Office Visit James Phoenix MD [facility] 04/20/21 [facility] Showing recent visits within past 365 days and meeting all other requirements Future Appointments Date Type Provider Dept 07/13/22 Appointment Leslie Craven APRN, CASHIER CREDIT [facility] Showing future appointments within next 90 days and meeting all other requirements Passed - Lipid panel in past 12 months LDL Date Value Ref Range Status 03/11/2022 85 5 - 130 mg/dL Final 07/17/2020 108 0 - 130 mg/dL Final HDL CHOLESTEROL Date Value Ref Range Status 03/11/2022 32.9 (L) >40 mg/dL Final CHOLESTEROL Date Value Ref Range Status 03/11/2022 175 <=200 mg/dL Final TRIGLYCERIDES Date Value Ref Range Status 03/11/2022 285 (H) <150 mg/dL Final VLDL Date Value Ref Range Status 03/11/2022 57 (H) 5 - 55 mg/dL Final CHOL/HDL RATIO Date Value Ref Range Status 03/11/2022 5.3 (H) 0.0 - 4.4 Final NON-HDL CHOLESTEROL Date Value Ref Range Status 03/11/2022 142.1 (H) <130 mg/dL Final R SUPPORT TECHNICIAN documented in this encounter Plan of Treatment Upcoming Encounters Date Type Department Care Team (Late st Contact Info) Description 08/03/2024 11:30 AM CDT Office Visit [facility] - Cardiology - [place] [address] [place] [address] Chiquis Kaplan APRN, CASHIER CREDIT [address]2 [facility] [place] [phone] 10/11/2024 2:00 PM CDT Office Visit [facility] - Endocrinology - [place] [address]2 [place] [address] Alida Castillo MD #[address] [place] [address] 10/30/2024 2:45 PM CDT Office Visit [facility] - Family Medicine - [place] [address]2 [facility] [place] [address] aSran Ken MD #[address] [address] documented as of this encounter Visit Diagnoses Not on filedocumented in this encounter Additional Health Concerns Assessment Noted Time PHQ-9 Depression Total Score: 0 02/14/20 20 1:00 PM CDT documented as of this encounter Care Teams Associate Application Developer Relationship Specialty Start Date End Date James Phoenix MD PCP - General Family Medicine 04/11/20 01/12/24 Cari Marvin DO 2 [facility] [address] [place] [address] PCP - General Family Medicine 01/13/24 02/15/24 Cari Marvin DO 2 [facility] [address] [place] [address] PCP - General Family Medicine 02/24/24 03/12/24 Saran Ken MD #[address] [address] PCP - General Family Medicine 03/13/24 Ivon Triplett APRN, CASHIER CREDIT Nurse Practitioner Advanced Practice Nurse 05/25/16 Susan Carmona MD #[address] [place] [address] Consulting Physician Gastroenterology 04/22/22 Donny Antonio MD #[address] [place] [address] Consulting Physician Neurology 03/22/24 Alida Castillo MD #[address] [phone] Consulting Physician Endocrinology 07/13/24 documented as of this encounter
--- OUTSIDE RECORDS SUMMARY | 2024-07-23 16:15 | XMS_ITS | Clinical Summary ---
Author Organization [facility] Address [address] [place] [address] Care Team Providers Care Workforce Staffing Advisor Name Role Phone Saran Ken MD Primary Care Provider [phone] Allergies Active Allergy Reactions Criticality Noted Date Comments Amoxicillin Other (See comments) ,Eye irritation Low 01/13/2016 Eyes become extremely dry and red Doxycycline Nausea & Vomiting,Unknown Low 01/13/2016 Patient does not remember Dyclonine Unknown 10/27/2020 Erythromycin Unknown Low 11/25/2015 Patient does not remember Penicillins Itching,Nausea And Vomiting,Nausea only,Nausea & Vomiting Low 07/28/2015 Simvastatin Unknown Low 01/13/2016 Patient does not remember Medications aspirin 81 mg chewable tablet Take 1 tablet (81 mg total) by mouth daily 10/26/[address] (PROTONIX) 40 mg EC tablet Take 1 tablet (40 mg total) by mouth daily 06/20/19 20 Active hydroCHLOROth iazide 12.5 mg tablet Take 1 tablet (12.5 mg total) by mouth daily 01/13/20 16 Active fluticasone propionate (FLONASE) 50 mcg/actuation nasal spray Administer 1 spray into affected nostril(s) daily Active potassium chloride ER 20 mEq CR tablet Take 1 tablet (20 mEq total) by mouth daily 03/19/20 21 Active metoprolol XL (TOPROL-XL) 50 mg extended release tablet Take 1 tablet (50 mg total) by mouth daily 03/13/20 24 Active topiramate (TOPAMAX) 25 mg tablet Take 1 tablet (25 mg total) by mouth 2 (two) times a day 03/19/20 24 Active cyanocobalami n (Vitamin B-12) 1,000 mcg/mL injection 1000mcg monthly 02/17/20 24 Active Dulera 200-5 mcg/actuation inhaler Take 2 puffs by mouth 2 (two) times a day 10/04/19 23 Active albuterol HFA (PROVENTIL HFA,VENTOLIN HFA,PROAIR HFA) 90 mcg/actuation inhaler Inhale 2 puffs as needed 01/13/20 16 Active albuterol 2.5 mg /3 mL (0.083 %) nebulizer solution Inhale 3 mL (2.5 mg total) as directed 01/05/20 19 Active amitriptyline (ELAVIL) 10 mg tablet Take 1 tablet (10 mg total) by mouth nightly 07/15/19 23 Active atorvastatin (LIPITOR) 80 mg tablet Take 1 tablet (80 mg total) by mouth daily 04/25/20 23 Active clotrimazole- betamethasone (LOTRISONE) cream APPLY BID PRN FOR RASH 07/26/19 19 Active dicyclomine (BENTYL) 20 mg tablet Take by mouth 07/28/19 16 Active empagliflozin (Jardiance) 10 mg tablet Take 1 tablet (10 mg total) by mouth daily 07/13/19 23 Active icosapent ethyL (Vascepa) 1 gram capsule Take 1 capsule (1 g total) by mouth 06/08/19 20 Active lidocaine (LIDODERM) 5 % Place 1 patch on the skin daily 07/07/19 24 Active losartan (COZAAR) 50 mg tablet Take 1 tablet (50 mg total) by mouth daily 05/20/19 23 Active metFORMIN (GLUCOPHAGE) 500 mg tablet Take 2 tablets (1,000 mg total) by mouth 2 (two) times a day 06/22/19 23 Active nicotine 21-14-7 mg/24 hr patch, TD daily, sequential Use as directed on package insert. 03/13/20 24 Active ondansetron (ZOFRAN) 4 mg tablet Take 1 tablet (4 mg total) by mouth every 8 (eight) hours as needed 10/03/19 21 Active triamcinolone (KENALOG) 0.1 % ointment 01/13/20 16 Active pregabalin (LYRICA) 75 mg capsule Take 2 capsules (150 mg total) by mouth 2 (two) times a day Active Ozempic 1 mg/dose (4 mg/3 mL) pen injector injection INJECT 1 MG BY SUBCUTANEOUS ROUTE ONCE WEEKLY 03/25/20 24 Active BD Luer-Nora Syringe 3 mL 25 gauge x 1 syringe 06/21/19 25 Active moxifloxacin (VIGAMOX) 0.5 % ophthalmic solution Administer 1 drop into both eyes 4 (four) times a day 3 mL 11 06/27/19 25 Active azithromycin (ZITHROMAX) 500 mg tablet Take 2 tablets (1,000 mg total) by mouth once a week 6 tablet 04/27/20 24 025 Discontinued moxifloxacin (VIGAMOX) 0.5 % ophthalmic solution INSTILL 1 DROP IN BOTH EYES FOUR TIMES DAILY 3 mL 3 06/18/19 25 025 Discontinued(R eorder) Active Problems Problem Noted Date Diagnosed Date Diarrhea 06/27/2024 Dizziness 03/13/2024 Intractable chronic cluster headache 03/13/2024 Obesity (BMI 30-39.9) 03/13/2024 Chronic tension-type headache, intractable 08/23 Abdominal pain 04/22/2022 History of colon polyps 04/22/2022 External hemorrhoids 10/27/2020 HLD (hyperlipidemia) 10/27/2020 Painless rectal bleeding 10/27/2020 Skin tag 10/27/2020 Piriformis syndrome of both sides 10/24/2020 Primary osteoarthritis of both hips 10/24/2020 Extrinsic asthma 10/06/2020 Obstructive sleep apnea syndrome 10/06/2020 Nausea 05/23/2020 Anxiety about health 04/14/2020 Anxiety 04/14/2020 High blood pressure 04/14/2020 GERD (gastroesophageal reflux disease) 0 Irritable bowel syndrome 07/30/2019 Melanocytic nevus 01/13/2016 Multiple benign nevi 01/13/2016 Other psoriasis 01/13/2016 Seborrheic keratosis 01/13/2016 Xanthelasma of eyelid, bilateral 01/13/2016 COPD (chronic obstructive pulmonary disease) 05/2014 DM (diabetes mellitus) 05/16/2014 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 Encounters Date Type Department Care Team Description 06/28/2024 Telephone [facility] Ophthalmology [address] [place] [address] Natasha Flores MD PhD Med Management 06/27/2024 10:30 AM METAL BONDER Office Visit [facility] Ophthalmology [address] [phone] Natasha Flores MD PhD Chronic conjunctivitis of both eyes, unspecified chronic conjunctivitis type (Primary Dx) 04/30/2024 Telephone [facility] Ophthalmology [address] [place] [address] Natasha Flores MD PhD Med Management 04/27/2024 3:45 PM METAL BONDER - 04/27/2024 11:59 PM METAL BONDER Hospital Encounter [facility] [address] [place] [address] Xanthoma planum of eyelid Discharge Disposition: Discharge to home or self care 04/27/2024 2:00 PM METAL BONDER Office Visit [facility] Ophthalmology [address] [phone] Natasha Flores MD PhD Chronic conjunctivitis of both eyes, unspecified chronic conjunctivitis type (Primary Dx) from Last 3 Months Surgical History Surgery Date Site/Laterality Comments MA TOTAL ABDOMINAL HYSTERECT W/WO RMVL TUBE OVARY Hysterectomy - (Added by Conv) SINUS SURGERY Sinus Surgery - (Added by Conv) KNEE SURGERY Right Knee Surgery - (Added by Conv) Medical History Medical History Date Comments Combined forms of age-related cataract, bilatera l Follows w/ Dr. Dallas Ramos Early dry stage nonexudative age-related macular degeneration of both eyes Follows w/ Dr. Dallas Ramos Meibomian gland dysfunction (MGD) of both eyes 0 10/24/2023 Dry eye syndrome, bilateral 10/24/2023 Family History Medical History Relation Name Comments No Known Problems Father No Known Problems Mother Relation Name Status Comments Father Mother Social History Tobacco Use Types Packs/Day Years Used Date Smoking Tobacco: Every Day Cigarettes Tobacco Cessation:Ready to Q uit: Not Asked; Counseling Given: Not Answered AUDIT-C Answer Date Recorded Q1: How often do you have a drink containing alc ohol? Monthly or less 03/23/2024 Average Number of Drinks Not on file 024 Frequency of Binge Drinking Not on file 12/2023 Comments Unknown Sex and Gender Information Value Date Recorded Sex Assigned at Not on file Legal Sex Female 7:24 AM METAL BONDER Gender Identity Not on file Sexual Orientation Not on file Obstetrics History Plan of Treatment Health Maintenance Due Date Last Done Comments Albumin Creatinine Ratio, Urine 1956 Breast Cancer Screening-Mammogram 1956 Colon Cancer Screening-Colonoscopy 1956 Depression Screening 1956 Fall Risk Assessment 1956 Hemoglobin A1C 1956 Hepatitis C Screening 1956 Osteoporosis Screening-Bone Density Scan 1956 eGFR 1956 Dilated Eye Exam 1956 Foot Exam 1956 Lipid Panel 1956 Hepatitis B Screening 1974 Well Visit 65+ 2021 Covid-19 Vaccine (4 - 2023-2 5 season) 2024 06/30/2021, 01/06/2021, 12/16/2020 DTaP/Tdap/Td Vaccine (2 - Td or Tdap) 2025 12/29/2015 Pneumococcal vaccine 65+ Completed 022, 05/16/2015, 03/24/2015, Additional history exists Zoster Vaccine Completed 03/08/2022, 01/01/2022 Influenza Vaccine Completed 02/09/2024, , 02/09/2022, Additional history exists Procedures Procedure Name Priority Date/Time Associated Diagnosis Comments AEROBIC AND ANAEROBIC CULTURE AND GRAM STAIN Routine 04/27/2024 5:13 PM METAL BONDER AEROBIC AND ANAEROBIC CULTURE AND GRAM STAIN Routine 04/27/2024 5:13 PM METAL BONDER Xanthoma planum of eyelid from Last 3 Months Results * (ABNORMAL) Aerobic and anaerobic culture and gram stain Cornea Eye, left (04/27/2024 5:13 PM METAL BONDER) Direct Specimen Exam Stain: No polymorphonuclear leukocytes seen. No organisms seen. Report Final Report: Rare Mixed skin microorganisms. Includes the following: Rare Staphylococcus aureus Methicillin susceptible (MSSA) by penicillin binding protein 2a (PBP2a) testing. This isolate is presumed to be resistant to clindamycin based on detection of inducible clindamycin resistance. Clindamycin may still be effective in some patients. * * * * * * * * * * * * * * * * * * * * Notification of: Staphylococcus aureus called to and read back by: Dr. Raz Pierre Ophthalmology Resident On-call on 04/28/2024 15:06 by: Elisabeth Nicolas MT. (.) [facility] Organism STAPHYLOCOCCUS AUREUS [facility] Organism MIXED SKIN MICROORGANISMS. [facility] Cornea (Eye, left) 04/27/2024 5:13 PM METAL BONDER 04/27/2024 5:48 PM METAL BONDER Narrative [facility] - 05/04/2024 2:52 PM METAL BONDER Testing performed by [facility] Microbiology Laboratory ([phone]) Specimens submitted from normally sterile body sites will have all bacterial morphotypes identified. Specimens that contain grossly mixed shreya and/or are from body sites that are not normally sterile will be examined for Staphylococcus aureus, Pseudomonas aeruginosa, beta-hemolytic strep, vancomycin-resistant Enterococcus, Bacteroides, Parabacteroides, Clostridium perfringens and fungus. If any of these are isolated, the organism will be reported. Current interpretive data was last revised on 2019. Organism Antibiotic Method Susceptibility Staphylococcus aureus Doxycycline (KELLY) INTERPRETATIO N Susceptible Staphylococcus aureus Linezolid (KELLY) INTERPRETATIO N Susceptible Staphylococcus aureus Trimethoprim with Sulfamethoxazole (KELLY) INTERPRETATION Susceptible Staphylococcus aureus Clindamycin (KELLY) INTERPRETATIO N Resistant Staphylococcus aureus Erythromycin (KELLY) INTERPRETATIO N Resistant Staphylococcus aureus Vancomycin (KELLY) INTERPRETATIO N Susceptible Staphylococcus aureus Oxacillin (KELLY) INTERPRETATIO N Susceptible Staphylococcus aureus Cefazolin (KELLY) INTERPRETATIO N Susceptible Staphylococcus aureus Ceftriaxone (KELLY) INTERPRETATIO N Susceptible us Natasha Flores MD PhD LAB MICROBIOLOGY - [facility] ORDERABLES Final Result [facility] Department [place] [address] * (ABNORMAL) Aerobic and anaerobic culture and gram stain Cornea Eye, right (04/27/2024 5:13 PM METAL BONDER) Direct Specimen Exam Stain: No polymorphonuclear leukocytes seen. No organisms seen. Report Final Report: Rare Mixed skin microorganisms. Includes the following: Rare Staphylococcus aureus Methicillin susceptible (MSSA) by penicillin binding protein 2a (PBP2a) testing. This isolate is presumed to be resistant to clindamycin based on detection of inducible clindamycin resistance. Clindamycin may still be effective in some patients. * * * * * * * * * * * * * * * * * * * * Notification of: Staphylococcus aureus called to and read back by: Dr. Raz Pierre Ophthalmology Resident On-call on 04/28/2024 15:06 by: Elisabeth Nicolas MT. (.) [facility] Organism STAPHYLOCOCCUS [facility]UREUS [facility] Organism MIXED SKIN MICROORGANISMS. [facility] Cornea (Eye, right) 04/27/2024 5:13 PM METAL BONDER 04/27/2024 5:47 PM METAL BONDER Narrative [facility] - 05/04/2024 2:51 PM METAL BONDER Testing performed by [facility]biology Laboratory ([phone]) Specimens submitted from normally sterile body sites will have all bacterial morphotypes identified. Specimens that contain grossly mixed shreya and/or are from body sites that are not normally sterile will be examined for Staphylococcus aureus, Pseudomonas aeruginosa, beta-hemolytic strep, vancomycin-resistant Enterococcus, Bacteroides, Parabacteroides, Clostridium perfringens and fungus. If any of these are isolated, the organism will be reported. Current interpretive data was last revised on 2019. Organism Antibiotic Method Susceptibility Staphylococcus aureus Doxycycline (KELLY) INTERPRETATIO N Susceptible Staphylococcus aureus Linezolid (KELLY) INTERPRETATIO N Susceptible Staphylococcus aureus Trimethoprim with Sulfamethoxazole (KELLY) INTERPRETATION Susceptible Staphylococcus aureus Clindamycin (KELLY) INTERPRETATIO N Resistant Staphylococcus aureus Erythromycin (KELLY) INTERPRETATIO N Resistant Staphylococcus aureus Vancomycin (KELLY) INTERPRETATIO N Susceptible Staphylococcus aureus Oxacillin (KELLY) INTERPRETATIO N Susceptible Staphylococcus aureus Cefazolin (KELLY) INTERPRETATIO N Susceptible Staphylococcus aureus Ceftriaxone (KELLY) INTERPRETATIO N Susceptible Natasha Flores MD PhD LAB MICROBIOLOGY - [facility] ORDERABLES Final Result [facility] Department [place] [address] from Last 3 Months Insurance MEDICARE SOLUTIONS MEDICARE SOLUTIONS Care Teams Workforce Staffing Advisor Relationship Specialty Start Date End Date Saran Ken MD [address] [facility] [address] [address] PCP - General Family Medicine 06/27/24
--- OUTSIDE RECORDS SUMMARY | 2024-07-23 16:15 | XMS_ITS | Encounter Summary ---
Author Organization [facility] Address [address] [place] [address] Phone Care Team Providers Care Dairy Grazer Name Role Phone Ivon Triplett APRPankaj IMPORT EXPORT AGENT Unavailable James Phoenix MD Primary Care Provider [phone] Susan Carmona MD Unavailable [phone] Cari Marvin DO Primary Care Provider [phone] Cari Marvin DO Primary Care Provider Saran Ken MD Primary Care Provider [phone] Donny Antonio MD Unavailable [phone] Alida Castillo MD Unavailable Reason for Visit * Reason Comments Medication Refill Encounter Details Date Type Department Care Team (Late st Contact Info) Description 10/01/2022 Refill [facility] [address] [place] [address] James Phoenix MD [address] [place] [address] Medication Refill Social History Tobacco Use Types [...] 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 Requested Prescriptions Pending Prescriptions Disp Refills metFORMIN (GLUCOPHAGE) 500 MG Tablet [Pharmacy Med Name: METFORMIN 500MG TABLETS] 180 Tablet 3 Sig: TAKE 2 TABLETS BY MOUTH TWICE DAILY Biguanides Protocol Failed - 10/01/2022 10:37 AM Failed - HgA1C on record in past 6 months HGB-A1C Date Value Ref Range Status 03/11/2022 10.7 (A) 4 - 6 Final Failed - GFR on record in past 6 months GFR, EST. NONAFRICAN Date Value Ref Range Status 03/11/2022 >60 >=60 Final Passed - Visit with relevant provider in past 6 months or upcoming 90 days Recent Visits Date Type Provider Dept 04/13/22 Office Visit Leslie Craven SUPERVISOR ELECTRONIC TESTING, IMPORT EXPORT AGENT [facility] Showing recent visits within past 182 days and meeting all other requirements Future Appointments No visits were found meeting these conditions. Showing future appointments within next 90 days and meeting all other requirements documented in this encounter Plan of Treatment Upcoming Encounters Date Type Department Care Team (Late st Contact Info) Description 08/03/2024 11:30 AM CDT Office Visit [facility] - Cardiology - [place] [address] [place] [address] Chiquis Kaplan APRN, IMPORT EXPORT AGENT [address] [place] [address] 10/11/2024 2:00 PM CDT Office Visit [facility] - Endocrinology - [place] [address] [facility] [place] [phone] Alida Castillo MD [address] [place] [address] 10/30/2024 2:45 PM CDT Office Visit [facility] Medical [facility] - Family Medicine - [place] [address] [place] [address] Saran Ken MD [address] [address] documented as of this encounter Visit Diagnoses Diagnosis Type 2 diabetes mellitus without complication, with long-term current use of insulin (HCC) documented in this encounter Additional Health Concerns Assessment Noted Time PHQ-9 Depression Total Score: 0 02/14/20 20 1:00 PM CDT documented as of this encounter Care Teams Dairy Grazer Relationship Specialty Start Date End Date James Phoenix MD PCP - General Family Medicine 04/11/20 01/12/24 Cari Marvin DO [address] [address] PCP - General Family Medicine 01/13/24 02/15/24 Cari Marvin DO 2 [facility] [address] [place] [address] PCP - General Family Medicine 02/24/24 03/12/24 Saran Ken MD #[address] [address] PCP - General Family Medicine 03/13/24 Ivon Triplett APRN, IMPORT EXPORT AGENT Nurse Practitioner Advanced Practice Nurse 05/25/16 Susan Carmona MD [address] [place] [address] Consulting Physician Gastroenterology 04/22/22 Donny Antonio MD [address] [place] [phone] Consulting Physician Neurology 03/22/24 Alida Castillo MD #[address] [phone] Consulting Physician Endocrinology 07/13/24 documented as of this encounter
--- OUTSIDE RECORDS SUMMARY | 2024-07-23 16:15 | XMS_ITS | Encounter Summary ---
Author Organization [facility] Address [address] [place] [address] Phone Care Team Providers Care Fieldwork Coordinator Name Role Phone Ivon Triplett APRPankaj QUILT SEWER Unavailable James Phoenix MD Primary Care Provider [phone] Susan Carmona MD Unavailable [phone] Cari Marvin DO Primary Care Provider Cari Marvin DO Primary Care Provider [phone] Saran Ken MD Primary Care Provider [phone] Donny Antonio MD Unavailable Alida Castillo MD Unavailable Reason for Visit * Reason Comments Medication Refill Encounter Details Date Type Department Care Team (Late st Contact Info) Description 10/31/2023 Refill [facility] - Family Medicine [facility] [address] [place] [address] James Phoenix MD [address] [place] [address] Medication Refill Social History Tobacco Use Types [...] drink = 0.6 oz pur e alcohol) [facility] Utilities Answer Date Recorded In the past [...] week 08/02/2023 How often do you attend jainism or buddhist serv ices? Never 08/02/2023 Do you belong to any clubs o r organizations such as jainism groups, unions, fraternal or athletic groups, or [...] Total Score - Questions 1-9 0 10/16 [facility] [place] of Occupat ional Health - Occupational Stress [...] place to sleep or slept in a nursing home (including now)? 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 Requested Prescriptions Pending Prescriptions Disp Refills pregabalin (LYRICA) 75 MG Capsule [Pharmacy Med Name: PREGABALIN 75MG CAPSULES] 120 Capsule 0 Sig: TAKE 2 CAPSULES BY MOUTH TWICE DAILY Not Delegated - Anticonvulsants Excluding Benzodiazepines Protocol Failed - 10/31/2023 10:57 AM Failed - This refill cannot be delegated Passed - Visit with relevant provider in past 12 months or upcoming 90 days Recent Visits Date Type Provider Dept 08/04/23 Office Visit James Phoenix MD [facility] 07/04/23 Office Visit Baljeet Abreu APRN, [facility] [place] 05/27/23 Office Visit Baljeet Abreu APRN, MARYAN [facility] [place] 03/17/23 Office Visit James Phoenix MD [facility] 12/30/22 Office Visit James Phoenix MD [facility] 11/12/22 Office Visit James Phoenix, [facility] [place] Showing recent visits within past 365 days and meeting all other requirements Future Appointments No visits were found meeting these conditions. Showing future appointments within next 90 days and meeting all other requirements documented in this encounter Plan of Treatment Upcoming Encounters Date Type Department Care Team (Late st Contact Info) Description 08/03/2024 11:30 AM CDT Office Visit [facility] Medical [facility] - Cardiology - [place] [address] [facility] [place] [address] Chiquis Kaplan APRN, QUILT SEWER [address] [place] [address] 10/11/2024 2:00 PM CDT Office Visit [facility] Medical Group - Endocrinology - [place] [address] [place] [phone] Alida Castillo MD [address] [place] [address] 10/30/2024 2:45 PM CDT Office Visit [facility] Medical [facility] - Family Medicine - [place] [address] [place] [address] Saran Ken MD [address]2 [facility] [address] documented as of this encounter Visit Diagnoses Diagnosis Chronic tension-type headache, intractable Chronic tension type headache documented in this encounter Additional Health Concerns Assessment Noted Time PHQ-9 Depression Total Score: 0 11/13/19 23 1:55 PM CDT documented as of this encounter Care Teams Fieldwork Coordinator Relationship Specialty Start Date End Date James Phoenix MD PCP - General Family Medicine 04/11/20 01/12/24 Cari Marvin DO [address] [address] PCP - General Family Medicine 01/13/24 02/15/24 Cari Marvin DO [address] [address] PCP - General Family Medicine 02/24/24 03/12/24 Saran Ken MD #[address] [address] PCP - General Family Medicine 03/13/24 Ivon Triplett, [employer]EN[employer] POLISHER OPERATOR, QUILT SEWER Nurse Practitioner Advanced Practice Nurse 05/25/16 Susan Carmona MD [address] [place] [address] Consulting Physician Gastroenterology 04/22/22 Donny Antonio MD [address] [place] [address] Consulting Physician Neurology 03/22/24 Alida Castillo MD #2 [facility] [address] [phone] Consulting Physician Endocrinology 07/13/24 documented as of this encounter
--- OUTSIDE RECORDS SUMMARY | 2024-07-23 16:15 | XMS_ITS | Encounter Summary ---
Author Organization [facility] Address [address] [place] [address] Phone Care Team Providers Care Tapering Machine Operator Name Role Phone Ivon Triplett APRPankaj GEOTHERMAL PLANT MANAGER Unavailable [phone] James Phoenix MD Primary Care Provider Susan Carmona MD Unavailable [phone] Cari Marvin DO Primary Care Provider Cari Marvin DO Primary Care Provider [phone] Saran Ken MD Primary Care Provider [phone] Donny Antonio MD Unavailable [phone] Alida Castillo MD Unavailable Reason for Visit * Reason Comments Medication Refill Encounter Details Date Type Department Care Team (Late st Contact Info) Description 07/10/2022 Refill [facility] Family Medicine [facility] #2 [place] [address] James Phoenix MD #1 [place] [address] Medication Refill Social History Tobacco Use Types Packs/Day Years Used Date Smoking Tobacco: Every Day Cigarettes 0.5 40 Smokeless Tobacco: Never Alcohol Use Standard Drinks/Week Comments Not Currently 0 (1 standard drink = 0.6 oz pur e alcohol) PHQ-2 Answer Date Recorded Total Score - Questions 1-9 0 12/0 10/2020 Education Answer Date Recorded What is [...] 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 Requested Prescriptions Pending Prescriptions Disp Refills Jardiance 10 MG Tablet [Pharmacy Med Name: JARDIANCE 10MG TABLETS] 30 Tablet 0 Sig: TAKE 1 TABLET BY MOUTH DAILY SGLT2 Inhibitors Protocol Passed - 07/10/2022 4:07 PM Passed - Visit with relevant provider in past 6 months or upcoming 90 days Recent Visits Date Type Provider Dept 04/13/22 Office Visit Leslie Craven APRN, GEOTHERMAL PLANT MANAGER [facility] 03/11/22 Office Visit James Phoenix MD [facility] Showing recent visits within past 182 days and meeting all other requirements Future Appointments No visits were found meeting these conditions. Showing future appointments within next 90 days and meeting all other requirements Passed - HgA1C on record in past 6 months HGB-A1C Date Value Ref Range Status 03/11/2022 10.7 (A) 4 - 6 Final Passed - GFR greater than or equal to 30 in past 6 months GFR, EST. NONAFRICAN Date Value Ref Range Status 03/11/2022 >60 >=60 Final OR QA TESTER documented in this encounter Plan of Treatment Upcoming Encounters Date Type Department Care Team (Late st Contact Info) Description 08/03/2024 11:30 AM CDT Office Visit [facility] Medical [facility] - Cardiology - [place] #2 [facility] [place] [address] Chiquis Kaplan APRN, GEOTHERMAL PLANT MANAGER #2 [place] [address] 10/11/2024 2:00 PM CDT [facility] [place] #2 [facility] [place] [address] Alida Castillo MD #[address] [place] [address] 10/30/2024 2:45 PM CDT Office Visit [facility] - Family Medicine - [place] #2 [place] [address] Saran Ken MD #2 [facility] [address] [place] [address] documented as of this encounter Visit Diagnoses Not on filedocumented in this encounter Additional Health Concerns Assessment Noted Time PHQ-9 Depression Total Score: 0 02/14/20 20 1:00 PM CDT documented as of this encounter Care Teams Tapering Machine Operator Relationship Specialty Start Date End Date James Phoenix MD PCP - General Family Medicine 04/11/20 01/12/24 Cari Marvin DO 2 [facility] [address] [place] [address] PCP - General Family Medicine 01/13/24 02/15/24 Cari Marvin DO 2 [facility] [place] [facility] [address] [place] [address] PCP - General Family Medicine 02/24/24 03/12/24 Saran Ken MD #[address] [address] PCP - General Family Medicine 03/13/24 Ivon Triplett APRN, GEOTHERMAL PLANT MANAGER Nurse Practitioner Advanced Practice Nurse 05/25/16 Susan Carmona MD #2 [place] [address] Consulting Physician Gastroenterology 04/22/22 Donny Antonio MD #2 [place] [address] Consulting Physician Neurology 03/22/24 Alida Castillo MD #[address] [phone] Consulting Physician Endocrinology 07/13/24 documented as of this encounter
--- OUTSIDE RECORDS SUMMARY | 2024-07-23 16:15 | XMS_ITS | Encounter Summary ---
Author Organization [facility] Address [address] [place] [address] Phone Care Team Providers Care Burn Out Scarfing Operator Name Role Phone Ivon Triplett APRPankaj HVAC PROJECT ENGINEER Unavailable James Phoenix MD Primary Care Provider [phone] Susan Carmona MD Unavailable [phone] Cari Marvin DO Primary Care Provider Cari Marvin DO Primary Care Provider Saran Ken MD Primary Care Provider [phone] Donny Antonio MD Unavailable Alida Catsillo MD Unavailable Reason for Visit * Reason Onset Date Comments Medication Refill 08/18/2020 Encounter Details Date Type Department Care Team (Late st Contact Info) Description 08/18/2020 Refill [facility] - Family Medicine [facility] #2 [place] [address] James Phoenix MD #1 [place] [address] Medication Refill Social History Tobacco Use Types [...] 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 Requested Prescriptions Pending Prescriptions Disp Refills Accu-Chek Softclix Lancets Misc 300 Each 3 Sig: Use 1 lancet to test blood glucose three times daily Endocrinology: Diabetes Testing Supplies Passed - 08/18/2020 4:05 PM Passed - Valid encounter within last 12 months Past Office Visits Recent Outpatient Visits 1 month ago [facility] 2 months [facility] Alvarez MD 3 months ago Urinary urgency [facility] Amberly Callaway APN, HVAC PROJECT ENGINEER 4 months ago Anxiety [facility] James Alvarez MD 5 months ago Essential [facility] James Cabrera MD Upcoming Appointments Future Appointments In 1 month James Phoenix MD [facility] Ken Diop [facility] VICE PRESIDENT FOR PHILANTHROPY - Recent and Past Visits Recent Visits Date Type Provider Dept 07/03/20 Office Visit James Phoenix MD [facility] 06/17/20 Telemedicine James Phoenix MD [facility] 05/05/20 Office Visit Amberly Galeano APN, HVAC PROJECT ENGINEER [facility] 04/11/20 Office Visit James Phoenix MD [facility] 03/17/20 Office Visit James Phoenix MD [facility] 02/14/20 Office Visit James Phoenix MD [facility] Showing recent visits within past 460 days with a meds authorizing provider and meeting all other requirements Future Appointments Date Type Provider Dept 09/30/20 Appointment James Phoenix MD [facility] Showing future appointments within next 90 days with a meds authorizing provider and meeting all other requirements * Telephone Encounter - Aileen Stockton - 08/18/2020 4:05 PM CDT Received a faxed Rx request from pharmacy. Reordered refill medication(s) requested and pended for nurse and physician/THUY review. Refill encounter routed to nurse [employer] for processing. documented in this encounter Plan of Treatment Upcoming Encounters Date Type Department Care Team (Late st Contact Info) Description 08/03/2024 11:30 AM CDT Office Visit [facility] Medical Group - Cardiology - [place] #2 [place] [address] Chiquis Kaplan APRN, MARYAN #2 [place] [address] 10/11/2024 2:00 PM CDT Office Visit [facility] - Endocrinology - [place] #2 [place] [address] Alida Castillo MD #[address] [place] [address] 10/30/2024 2:45 PM CDT Office Visit [facility] - Family Medicine - [place] #2 [facility] [place] [address] Saran Ken MD #[address] [address] documented as of this encounter Visit Diagnoses Not on filedocumented in this encounter Additional Health Concerns Infection Onset Date Last Indicated Resolved Time COVID - 19 05/18/2021 05/18/2021 06/07/2021 12:1 6 AM ROTOR BLADE INSTALLER Assessment Noted Time PHQ-9 Depression Total Score: 0 02/14/20 1:00 PM CDT documented as of this encounter Care Teams Burn Out Scarfing Operator Relationship Specialty Start Date End Date James Phoenix MD PCP - General Family Medicine 04/11/20 01/12/24 Cari Marvin DO [address] [address] PCP - General Family Medicine 01/13/24 02/15/24 Cari Marvin DO [address] [address] PCP - General Family Medicine 02/24/24 03/12/24 Saran Ken MD #[address] [address] PCP - General Family Medicine 03/13/24 Ivon Triplett, FISH FILLETER, HVAC PROJECT ENGINEER Nurse Practitioner Advanced Practice Nurse 05/25/16 Susan Carmona MD #2 [place] [address] Consulting Physician Gastroenterology 04/22/22 Donny Antonio MD #2 [place] [phone] Consulting Physician Neurology 03/22/24 Alida Castillo MD #[address] [address] Consulting Physician Endocrinology 07/13/24 documented as of this encounter
--- OUTSIDE RECORDS SUMMARY | 2024-07-23 16:15 | XMS_ITS | Encounter Summary ---
Author Organization [facility] Address [address] [place] [address] Phone Care Team Providers Care General Assembler Installer Name Role Phone Ivon Triplett APRPankaj EYEGLASS FRAMES POLISHER Unavailable James Phoenix MD Primary Care Provider [phone] Susan Carmona MD Unavailable [phone] Cari Marvin DO Primary Care Provider Cari Marvin DO Primary Care Provider Saran Ken MD Primary Care Provider [phone] Donny Antonio MD Unavailable Alida Castillo MD Unavailable Reason for Visit * Reason Onset Date Comments Medication Refill Follow-up 10/31/2023 Encounter Details Date Type Department Care Team (Late st Contact Info) Description 10/31/2023 Refill [facility] - Family [facility] #2 [place] [address] James Phoenix MD #1 [place] [address] Medication Refill; Follow-up Social History Tobacco Use Types Packs/Day Years [...] drink = 0.6 oz pur e alcohol) [facility] Utilities Answer Date Recorded In the past 12 months has e electric, gas, oil, or water company [...] week 08/02/2023 How often do you attend baptist or mosque serv ices? Never 08/02/2023 Do you belong to any clubs o r organizations such as baptist groups, unions, fraternal or athletic groups, or [...] Total Score - Questions 1-9 0 10/16 [facility] [place] of Occupat ional Health - Occupational Stress [...] place to sleep or slept in a snf (including now)? 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 This request was received 2 days ago 10/31/23 * Telephone Encounter - Frances Walden RN - 11/02/2023 10:02 AM CDT Situation: follow up and medication refill Background: Patient reports she has been out of her Metformin for over a week, patient's PCP was Dr. Phoenix. Patient requesting Metformin refill to get her by until her transition of care with Leslie Craven. Assessment: Patient scheduled appointment for the following: All Patient Appointments Provider Department Dept Phone 11/08/2023 8:45 AM Leslie Craven [facility] [phone] Recommendation: Please advise, pharmacy verified, patient would like a call back * Telephone Encounter - Trisha Stokes CMA - 11/02/2023 9:44 AM CDT LVM for pt to call back. * Telephone Encounter - Delma Antonio RN - 11/01/2023 9:32 AM CDT Needs CARL * Telephone Encounter - Delma Antonio RN - 11/01/2023 9:31 AM CDT Medication failed the protocol, provider to review and approve the medication order if appropriate. Requested Prescriptions Pending Prescriptions Disp Refills metFORMIN (GLUCOPHAGE) 500 MG Tablet [Pharmacy Med Name: METFORMIN 500MG TABLETS] 360 Tablet 1 Sig: TAKE 2 TABLETS BY MOUTH TWICE DAILY Biguanides Protocol Failed - 10/31/2023 7:58 PM Failed - GFR on record in past 6 months GFR, EST. NONAFRICAN Date Value Ref Range Status 03/18/2023 >60 >=60 Final Passed - Visit with relevant provider in past 6 months or upcoming 90 days Recent Visits Date Type Provider Dept 08/04/23 Office Visit James Phoenix MD [facility] 07/04/23 Office Visit Baljeet Abreu APRN, [facility]23 Office Visit Baljeet Abreu APRN, MARY[facility] Showing recent visits within past 182 days and meeting all other requirements Future Appointments No visits were found meeting these conditions. Showing future appointments within next 90 days and meeting all other requirements Passed - HgA1C on record in past 6 months HGB-A1C Date Value Ref Range Status 07/04/2023 7.6 (A) 4 - 6 % Final documented in this encounter Plan of Treatment Upcoming Encounters Date Type Department Care Team (Late st Contact Info) Description 08/03/2024 11:30 AM CDT Office Visit [facility] Medical [facility] - Cardiology - [place] #2 [place] [address] Chiquis Kaplan APRN, EYEGLASS FRAMES POLISHER #2 [place] [address] 10/11/2024 2:00 PM CDT Office Visit [facility] Medical [facility] - Endocrinology - [place] #2 [place] [address] Alida Castillo MD #2 [facility] [address] [place] [address] 10/30/2024 2:45 PM CDT Office Visit [facility] Medical [facility] - Family Medicine - [place] #[address] [place] [address] Saran Ken MD #2 [facility] [address] [place] [address] documented as of this encounter Visit Diagnoses Diagnosis Type 2 diabetes mellitus without complication, with long-term current use of insulin (HCC) documented in this encounter Additional Health Concerns Assessment Noted Time PHQ-9 Depression Total Score: 0 11/13/19 23 1:55 PM CDT documented as of this encounter Care Teams General Assembler Installer Relationship Specialty Start Date End Date James Phoenix MD PCP - General Family Medicine 04/11/20 01/12/24 Cari Marvin DO [address] [address] PCP - General Family Medicine 01/13/24 02/15/24 Cari Marvin DO [address] [address] PCP - General Family Medicine 02/24/24 03/12/24 Saran Ken MD #[address] [address] PCP - General Family Medicine 03/13/24 Ivon Triplett, RISK ASSESSMENT CONSULTANT, EYEGLASS FRAMES POLISHER Nurse Practitioner Advanced Practice Nurse 05/25/16 Susan Carmona MD #2 [place] [address] Consulting Physician Gastroenterology 04/22/22 Donny Antonio MD #2 [place] [address] Consulting Physician Neurology 03/22/24 Alida Castillo MD #[address] [address] Consulting Physician Endocrinology 07/13/24 documented as of this encounter
--- OUTSIDE RECORDS SUMMARY | 2024-07-23 16:15 | XMS_ITS | Encounter Summary ---
Author Organization [facility] Address [address] [place] [address] Phone Care Team Providers Care Regional Construction Manager Name Role Phone Ivon Triplett APRPankaj ATTORNEY LAW CLERK Unavailable James Phoenix MD Primary Care Provider Susan Carmona MD Unavailable [phone] Cari Marvin DO Primary Care Provider Cari Marvin DO Primary Care Provider Saran Ken MD Primary Care Provider [phone] Donny Antonio MD Unavailable [phone] Alida Castillo MD Unavailable Reason for Visit * Reason Comments Medication Refill Encounter Details Date Type Department Care Team (Late st Contact Info) Description 02/10/2023 Refill [facility] - Family Medicine [facility] #2 [place] [address] James Phoenix MD #1 [place] [address] Medication Refill Social History Tobacco Use Types Packs/Day Years Used Date Smoking Tobacco: Every Day Cigarettes 0.5 40 Smokeless Tobacco: Never Alcohol Use Standard Drinks/Week Comments Not Currently 0 (1 standard drink = 0.6 oz pur e alcohol) PHQ-2 Answer Date Recorded Total Score - Questions 1-9 0 10/16 Education Answer Date Recorded What is the [...] 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 Not on file Not on file documented as of this encounter Miscellaneous Notes * Telephone Encounter - Delma Antonio RN - 02/10/2023 3:30 PM CDT Name from pharmacy: HYDROCHLOROTHIAZIDE 12.5MG TABLETS Will file in chart as: hydroCHLOROthiazide 12.5 MG Tablet The original prescription was reordered on 02/10/2023 * Telephone Encounter - Liliane Meyers RN - 02/10/2023 9:25 AM CDT duplicate documented in this encounter Plan of Treatment Upcoming Encounters Date Type Department Care Team (Late st Contact Info) Description 08/03/2024 11:30 AM CDT Office Visit [facility] Medical Group - Cardiology - [place] #2 [place] [address] Chiquis Kaplan APRN, ATTORNEY LAW CLERK #2 [place] [address] 10/11/2024 2:00 PM CDT Office Visit [facility] Medical Group - Endocrinology - [place] #2 [place] [address] Alida Castillo MD #[address] [phone] 10/30/2024 2:45 PM CDT Office Visit [facility] - Family [facility] #2 [facility] [place] [address] Saran Ken MD #[address] [place] [address] documented as of this encounter Visit Diagnoses Not on filedocumented in this encounter Additional Health Concerns Assessment Noted Time PHQ-9 Depression Total Score: 0 11/13/19 23 1:55 PM CDT documented as of this encounter Care Teams Regional Construction Manager Relationship Specialty Start Date End Date James Phoenix MD PCP - General Family Medicine 04/11/20 01/12/24 Cari Marvin DO 2 [facility] [place] [address] [address] PCP - General Family Medicine 01/13/24 02/15/24 Cari Marvin DO 2 [facility] [place] [address] [address] PCP - General Family Medicine 02/24/24 03/12/24 Saran Ken MD #[address] [address] PCP - General Family Medicine 03/13/24 Ivon Triplett APRN, ATTORNEY LAW CLERK Nurse Practitioner Advanced Practice Nurse 05/25/16 Susan Carmona MD #2 [place] [address] Consulting Physician Gastroenterology 04/22/22 Donny Antonio MD #2 [place] [address] Consulting Physician Neurology 03/22/24 Alida Castillo MD #[address] [address] Consulting Physician Endocrinology 07/13/24 documented as of this encounter
--- OUTSIDE RECORDS SUMMARY | 2024-07-23 16:15 | XMS_ITS | Encounter Summary ---
Author Organization [facility] Address [address] [place] [address] Phone Care Team Providers Care Winding Lathe Operator Name Role Phone Ivon Triplett APRPankaj CLAIM AGENT Unavailable [phone] James Phoenix MD Primary Care Provider [phone] Susan Carmona MD Unavailable [phone] Cari Marvin DO Primary Care Provider [phone] Cari Marvin DO Primary Care Provider Saran Ken MD Primary Care Provider [phone] Donny Antonio MD Unavailable Alida Castillo MD Unavailable Reason for Visit * Reason Comments Medication Refill Encounter Details Date Type Department Care Team (Late st Contact Info) Description 02/28/2023 Refill [facility] - Family Medicine [facility] #2 [place] [address] James Phoenix MD #1 [place] [address] Medication Refill Social History Tobacco Use Types [...] 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 Requested Prescriptions Pending Prescriptions Disp Refills clonazePAM (KlonoPIN) 0.5 MG Tablet [Pharmacy Med Name: CLONAZEPAM 0.5MG TABLETS] 30 Tablet 0 Sig: TAKE 1 TABLET BY MOUTH DAILY NEEDED FOR ANXIETY Not Delegated - Clonazepam Protocol Failed - 02/28/2023 11:54 AM Failed - This refill cannot be delegated Passed - Visit with relevant provider in past 12 months or upcoming 90 days Recent Visits Date Type Provider Dept 12/30/22 Office Visit James Phoenix MD [facility] 11/12/22 Office Visit James Phoenix MD [facility] 04/13/22 Office Visit Leslie Craven, PAY STATION ATTENDANT, CLAIM AGENT [facility] 03/11/22 Office Visit James Phoenix MD [facility] Showing recent visits within past 365 days and meeting all other requirements Future Appointments Date Type Provider Dept 03/17/23 Appointment James Phoenix MD [facility] Showing future appointments within next 90 days and meeting all other requirements documented in this encounter Plan of Treatment Upcoming Encounters Date Type Department Care Team (Late st Contact Info) Description 08/03/2024 11:30 AM CDT [facility] Visit [facility] - Cardiology - [place] #2 [place] [address] Chiquis Kaplan APRN, CLAIM AGENT #2 [facility] [place] [phone] 10/11/2024 2:00 PM CDT Office Visit [facility] Endocrinology - [place] #2 [place] [address] Alida Castillo MD #[address] [place] [address] 10/30/2024 2:45 PM CDT Office Visit [facility] Family Medicine - [place] #2 [facility] [place] [address] Saran Ken MD #[address] [address] documented as of this encounter Visit Diagnoses Diagnosis Anxiety Anxiety state, unspecified documented in this encounter Additional Health Concerns Assessment Noted Time PHQ-9 Depression Total Score: 0 11/13/19 23 1:55 PM CDT documented as of this encounter Care Teams Winding Lathe Operator Relationship Specialty Start Date End Date James Phoenix MD PCP - General Family Medicine 04/11/20 01/12/24 Cari Marvin DO 2 [facility] [address] [address] PCP - General Family Medicine 01/13/24 02/15/24 Cari Marvin DO 2 [facility] [address] [address] PCP - General Family Medicine 02/24/24 03/12/24 Saran Ken MD #[address] [address] PCP - General Family Medicine 03/13/24 Ivon Triplett, PAY STATION ATTENDANT, CLAIM AGENT Nurse Practitioner Advanced Practice Nurse 05/25/16 Susan Carmona MD #2 [place] [address] Consulting Physician Gastroenterology 04/22/22 Donny Antonio MD #2 [place] [address] Consulting Physician Neurology 03/22/24 Alida Castillo MD #[address] [address] Consulting Physician Endocrinology 07/13/24 documented as of this encounter
--- OUTSIDE RECORDS SUMMARY | 2024-07-23 16:15 | XMS_ITS | Encounter Summary ---
Author Organization [facility] Address [address] [place] [address] Phone Care Team Providers Care Car Wiper Name Role Phone Ivon Triplett APRN, BOX LINING MACHINE FEEDER Unavailable [phone] James Phoenix MD Primary Care Provider Susan Carmona MD Unavailable [phone] Cari Marvin DO Primary Care Provider Cari Marvin DO Primary Care Provider [phone] Saran Ken MD Primary Care Provider [phone] Donny Antonio MD Unavailable [phone] Alida Castillo MD Unavailable Reason for Visit * Reason Comments Medication Refill Encounter Details Date Type Department Care Team (Late st Contact Info) Description 02/24/2023 [facility]ill [facility] #2 [place] [address] Leslie Craven, PROJECT CONTROLS SPECIALIST, BOX LINING MACHINE FEEDER [address] [place] [address] Medication Refill Social History Tobacco Use Types [...] 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 Not on file Not on file documented as of this encounter Miscellaneous Notes * Telephone Encounter - Delma Antonio RN - 02/25/2023 10:20 AM CDT Name from pharmacy: ONDANSETRON 4MG TABLETS Will file in chart as: ondansetron (ZOFRAN) 4 MG Tablet The original prescription was discontinued on 11/12/2022 by James Phoenix MD documented in this encounter Plan of Treatment Upcoming Encounters Date Type Department Care Team (Late st Contact Info) Description 08/03/2024 11:30 AM CDT [facility] - Cardiology - [place] [address] [place] [address] Chiquis Kaplan APRN, MARYAN [address] [place] [address] 10/11/2024 2:00 PM CDT Office Visit [facility] - Endocrinology - [place] [address] [place] [address] Alida Castillo MD #[address] [phone] 10/30/2024 2:45 PM CDT Office Visit [facility] - Family Medicine - [place] [address] [place] [address] Saran Ken MD #[address] [address] documented as of this encounter Visit Diagnoses Diagnosis Nausea Nausea alone documented in this encounter Additional Health Concerns Assessment Noted Time PHQ-9 Depression Total Score: 0 11/13/19 23 1:55 PM CDT documented as of this encounter Care Teams Car Wiper Relationship Specialty Start Date End Date James Phoenix MD PCP - General Family Medicine 04/11/20 01/12/24 Cari Marvin DO [address] [address] PCP - General Family Medicine 01/13/24 02/15/24 Cari Marvin DO 2 [facility] [address] [address] PCP - General Family Medicine 02/24/24 03/12/24 Saran Ken MD #[address] [address] PCP - General Family Medicine 03/13/24 Ivon Triplett, PROJECT CONTROLS SPECIALIST, BOX LINING MACHINE FEEDER Nurse Practitioner Advanced Practice Nurse 05/25/16 Susan Carmona MD [address]2 [place] [address] Consulting Physician Gastroenterology 04/22/22 Donny Antonio MD #2 [place] [address] Consulting Physician Neurology 03/22/24 [facility] MD [facility] [address] [phone] Consulting Physician Endocrinology 07/13/24 documented as of this encounter
--- OUTSIDE RECORDS SUMMARY | 2024-07-23 16:15 | XMS_ITS | Encounter Summary ---
Author Organization [facility] Address [address] [facility] [place] [address] Phone Care Team Providers Care Braddisher Name Role Phone Ivon Triplett APRMARYAN Lira Unavailable [phone] James Phoenix MD Primary Care Provider Susan Carmona MD Unavailable [phone] Cari Marvin DO Primary Care Provider [phone] Cari Marvin DO Primary Care Provider Saran Ken MD Primary Care Provider [phone] Donny Antonio MD Unavailable [phone] Aldia Castillo MD Unavailable Reason for Visit * Reason Onset Date Comments Medication Refill 07/22/2020 Encounter Details Date Type Department Care Team (Late st Contact Info) Description 07/22/2020 [facility] [address] [place] [phone] James Phoenix MD [address] [place] [address] Medication Refill Social History Tobacco Use Types Packs/Day Years Used Date Smoking Tobacco: Every Day Cigarettes 0.5 40 Smokeless Tobacco: Never Alcohol Use Standard Drinks/Week Comments Not Currently 0 (1 standard drink = 0.6 oz pur e alcohol) rarely PHQ-2 Answer Date Recorded Total Score - Questions 1-9 0 10/0 05/2019 Sexually Active Control Partners Comments Not [...] Exposure Response Date Recorded In the last month, have you been in contact with someone who was confirmed or suspected to have Coronavirus / COVID-19? No / Unsure 07/03/2020 4:01 PM ATTACHER documented as of this encounter Miscellaneous Notes * Telephone Encounter - Lela Rooney - 07/22/2020 11:54 AM CST Patient requesting refill on HCTZ 12.5mg - one pill daily. Says she has contacted her pharmacy a couple times now and apparently they have not contacted us. She is down to 3 pills left. Requesting 3 month supply with refills. Rx pended. Pharmacy verified. CHER documented in this encounter Plan of Treatment Upcoming Encounters Date Type Department Care Team (Late st Contact Info) Description 08/03/2024 11:30 AM CDT Office Visit [facility] - Cardiology - [place] [address] [place] [address] Chiquis Kaplan APRN, ADDRESSING MACHINE OPERATOR #[address] [place] [address] 10/11/2024 2:00 PM CDT Office Visit [facility] - Endocrinology - [place] [address] [place] [phone] Alida Castillo MD #[address] [address] 10/30/2024 2:45 PM CDT [facility] Visit [facility] - [place] #[address] [place] [address] Saran Ken MD #[address] [place] [address] documented as of this encounter Visit Diagnoses Not on filedocumented in this encounter Additional Health Concerns Infection Onset Date Last Indicated Resolved Time COVID - 19 05/18/2021 05/18/2021 06/07/2021 12:1 6 AM ATTACHER Assessment Noted Time PHQ-9 Depression Total Score: 0 02/14/20 1:00 PM CDT documented as of this encounter Care Teams Braddisher Relationship Specialty Start Date End Date James Phoenix MD PCP - General Family Medicine 04/11/20 01/12/24 Cari Marvin DO 2 [facility] [address] [address] PCP - General Family Medicine 01/13/24 02/15/24 Cari Marvin DO 2 [facility] [address] [address] PCP - General Family Medicine 02/24/24 03/12/24 Saran Ken MD #[address] [address] PCP - General Family Medicine 03/13/24 Ivon Triplett APRN, ADDRESSING MACHINE OPERATOR Nurse Practitioner Advanced Practice Nurse 05/25/16 Susan Carmona MD #2 [place] [address] Consulting Physician Gastroenterology 04/22/22 Donny Antonio MD #2 [place] [address] Consulting Physician Neurology 03/22/24 Alida Castillo MD #[address] [address] Consulting Physician Endocrinology 07/13/24 documented as of this encounter
--- OUTSIDE RECORDS SUMMARY | 2024-07-23 16:15 | XMS_ITS | Encounter Summary ---
Author Organization [facility] Address [address] [place] [address] Phone Care Team Providers Care Director Of Photography Name Role Phone Ivon Triplett APRPankaj CAPACITY PLANNING ANALYST Unavailable James Phoenix MD Primary Care Provider [phone] Susan Carmona MD Unavailable [phone] Cari Marvin DO Primary Care Provider Cari Marvin DO Primary Care Provider Saran Ken MD Primary Care Provider [phone] Donny Antonio MD Unavailable Alida Castillo MD Unavailable Reason for Visit * Reason Comments Medication Refill Encounter Details Date Type Department Care Team (Late st Contact Info) Description 08/17/2023 Refill [facility] - Family Medicine [facility] #2 [place] [address] James Phoenix MD #1 [place] [address] Medication Refill Social History Tobacco Use Types [...] drink = 0.6 oz pur e alcohol) [facility] [place] [facility] Utilities Answer Date Recorded In the [...] week 08/02/2023 How often do you attend catholic or buddhism serv ices? Never 08/02/2023 Do you belong to any clubs o r organizations such as catholic groups, unions, fraternal or athletic groups, or [...] Total Score - Questions 1-9 0 10/16 [facility] [place] of Occupat ional Health - Occupational Stress [...] place to sleep or slept in a half-way (including now)? 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 Requested Prescriptions Pending Prescriptions Disp Refills hydroCHLOROthiazide 12.5 MG Tablet [Pharmacy Med Name: HYDROCHLOROTHIAZIDE 12.5MG TABLETS] 90 Tablet 1 Sig: TAKE 1 TABLET BY MOUTH DAILY Diuretics Protocol Passed - 08/17/2023 1:41 PM Passed - Serum potassium on record in past 12 months POTASSIUM Date Value Ref Range Status 03/18/2023 4.0 3.5 - 5.1 mmol/L Final Passed - Serum sodium on record in past 12 months SODIUM Date Value Ref Range Status 03/18/2023 137 136 - 145 mmol/L Final Passed - Blood pressure on record in past 12 months Clinician-entered: BP Readings from Last 3 Encounters: 08/04/23 148/74 07/11/23 143/65 07/04/23 122/60 Patient-entered: No data recorded Passed - Visit with relevant provider in past 12 months or upcoming 90 days Recent Visits Date Type Provider Dept 08/04/23 Office Visit James Phoenix MD [facility] 07/04/23 Office Visit Baljeet Abreu APRN, MARYAN [facility] [place] 05/27/23 Office Visit Baljeet Abreu APRN, MARYAN [facility] 03/17/23 Office Visit James Phoenix MD [facility] 12/30/22 Office Visit James Phoenix MD [facility] 11/12/22 Office Visit James Phoenix MD [facility] Showing recent visits within past 365 days and meeting all other requirements Future Appointments No visits were found meeting these conditions. Showing future appointments within next 90 days and meeting all other requirements Passed - GFR on record in past 12 months GFR, EST. NONAFRICAN Date Value Ref Range Status 03/18/2023 >60 >=60 Final documented in this encounter Plan of Treatment Upcoming Encounters Date Type Department Care Team (Late st Contact Info) Description 08/03/2024 11:30 AM CDT Office Visit [facility] - Cardiology - [place] [address] [place] [address] Chiquis Kaplan APRN, CAPACITY PLANNING ANALYST [address] [place] [address] 10/11/2024 2:00 PM CDT Office Visit [facility] Medical [facility] - Endocrinology - [place] #2 [facility] [place] [address] Alida Castillo MD #[address] [place] [address] 10/30/2024 2:45 PM CDT [facility] Visit [facility] - Family Medicine - [place] #2 [facility] [place] [address] Saran Ken MD #2 [facility] [address] [place] [address] documented as of this encounter Visit Diagnoses Not on filedocumented in this encounter Additional Health Concerns Assessment Noted Time PHQ-9 Depression Total Score: 0 11/13/19 1:55 PM CDT documented as of this encounter Care Teams Director Of Photography Relationship Specialty Start Date End Date James Phoenix MD PCP - General Family Medicine 04/11/20 01/12/24 Cari Marvin DO 2 [facility] [address] [address] PCP - General Family Medicine 01/13/24 02/15/24 Cari Marvin DO 2 [facility] [address] [place] [address] PCP - General Family Medicine 02/24/24 03/12/24 Saran Ken MD #[address] [place] [address] PCP - General Family Medicine 03/13/24 Ivon Triplett APRN, CAPACITY PLANNING ANALYST Nurse Practitioner Advanced Practice Nurse 05/25/16 Susan Carmona MD #2 [place], [place] [phone] Consulting Physician Gastroenterology 04/22/22 Donny Antonio MD #2 [place] [address] Consulting Physician Neurology 03/22/24 Alida Castillo MD #[address] [address] Consulting Physician Endocrinology 07/13/24 documented as of this encounter
--- OUTSIDE RECORDS SUMMARY | 2024-07-23 16:15 | XMS_ITS | Encounter Summary ---
Author Organization [facility] Address [address] [place] [address] Phone Care Team Providers Care Licensed Master Social Worker Name Role Phone Ivon Triplett APRMARYAN Lira Unavailable James Phoenix MD Primary Care Provider [phone] Susan Carmona MD Unavailable [phone] Cari Marvin DO Primary Care Provider [phone] Cari Marvin DO Primary Care Provider Saran Ken MD Primary Care Provider [phone] Donny Antonio MD Unavailable Alida Castillo MD Unavailable Reason for Visit * Reason Onset Date Comments Medication Refill 09/05/2023 Encounter Details Date Type Department Care Team (Late st Contact Info) Description 09/05/2023 Refill [facility] [address] [place] [address] James Phoenix MD [address] [place] [address] Medication Refill Social History Tobacco Use Types [...] drink = 0.6 oz pur e alcohol) [facility] Utilities Answer Date Recorded In the past [...] week 08/02/2023 How often do you attend gnosticism or gnosticist serv ices? Never 08/02/2023 Do you belong to any clubs o r organizations such as gnosticism groups, unions, fraternal or athletic groups, or [...] Total Score - Questions 1-9 0 10/16 [facility] [place] of Occupat ional Health - Occupational Stress [...] place to sleep or slept in a custodial (including now)? 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 Patient is worried she will not have medication by tomorrow night. Assessment: N/A Recommendation: Please advise with refill. Patient would like a phone call back once provider refill prescription. * Telephone Encounter - Delma Antonio RN - 09/06/2023 1:45 PM CDT Images from the original note were not included. Saleem Barry 09/05/23 12:24 PM Note RFC: Cherelle is calling to get to a refill on AMITRIPPYLINE 10MG 1 TABLET [place], SHE HAS STARTEDBACK ON IT BUT IT IS NOT SHOWING IN HER MED LIST SHE WILL BE OUT BY 09/06/23. Medication failed the protocol, provider to review and approve the medication order if appropriate. Requested Prescriptions Pending Prescriptions Disp Refills amitriptyline (ELAVIL) 10 MG Tablet 90 Tablet 0 Sig: Take 1 Tablet by mouth nightly. Not Delegated - Tricyclic Agents Protocol Failed - 09/06/2023 12:34 PM Failed - This refill cannot be delegated Failed - Active on medication list Passed - Visit with relevant provider in past 12 months or upcoming 90 days Recent Visits Date Type Provider Dept 08/04/23 Office Visit James Phoenix MD [facility] 07/04/23 Office Visit Baljeet Abreu APRN, MARYAN [facility] 05/27/23 Office Visit Baljeet Abreu APRN, MARYAN [facility] 03/17/23 Office Visit James Phoenix MD [facility] 12/30/22 Office Visit James Phoenix MD [facility] 11/12/22 Office Visit James Phoenix MD [facility] [place] Showing recent visits within past 365 days and meeting all other requirements Future Appointments No visits were found meeting these conditions. Showing future appointments within next 90 days and meeting all other requirements * Telephone Encounter - Saleem Barry - 09/05/2023 12:21 PM CDT RFC: Cherelle is calling to get to a refill on AMITRIPPYLINE 10MG 1 TABLET [place], SHE HAS STARTEDBACK ON IT BUT IT IS NOT SHOWING IN HER MED LIST SHE WILL BE OUT BY 09/06/23. Please call Cherelle (relationship to patient self) back regarding above referenced patient. Patient's Provider is James Phoenix MD . documented in this encounter Plan of Treatment Upcoming Encounters Date Type Department Care Team (Late st Contact Info) Description 08/03/2024 11:30 AM CDT Office Visit [facility] Medical [facility] - Cardiology - [place] #2 [facility] [place] [address] Chiquis Kaplan APRN, RECREATIONAL AIDE #[address] [place] [address] 10/11/2024 2:00 PM CDT Office Visit [facility] - Endocrinology - [place] #2 [facility] [place] [address] Alida Castillo MD #2 [facility] [address] [place] [address] 10/30/2024 2:45 PM CDT Office Visit [facility] - Family Medicine - [place] #[address] [place] [address] Saran Ken MD #2 [facility] [address] [place] [address] documented as of this encounter Visit Diagnoses Diagnosis Irritable bowel syndrome with both constipation and diarrhea documented in this encounter Additional Health Concerns Assessment Noted Time PHQ-9 Depression Total Score: 0 11/13/19 23 1:55 PM CDT documented as of this encounter Care Teams Licensed Master Social Worker Relationship Specialty Start Date End Date James Phoenix MD PCP - General Family Medicine 04/11/20 01/12/24 Cari Marvin DO 2 Johanny JARAMILLO [facility] [address] [place] [address] PCP - General Family Medicine 01/13/24 02/15/24 Cari Marvin DO [address] [address] PCP - General Family Medicine 02/24/24 03/12/24 Saran Ken MD #[address] [address] PCP - General Family Medicine 03/13/24 Ivon Triplett APRN, RECREATIONAL AIDE Nurse Practitioner Advanced Practice Nurse 05/25/16 Susan Carmona MD #2 [place] [address] Consulting Physician Gastroenterology 04/22/22 Donny Antonio MD #2 [place] [address] Consulting Physician Neurology 03/22/24 Alida Castillo MD #[address] [address] Consulting Physician Endocrinology 07/13/24 documented as of this encounter
--- OUTSIDE RECORDS SUMMARY | 2024-07-23 16:15 | XMS_ITS | Encounter Summary ---
Author Organization [facility] Address [address] [place] [address] Phone Care Team Providers Care Jail Manager Name Role Phone Uziel Ivon Herson PRINGLE CNP Unavailable [phone] Susan Carmona MD Unavailable [phone] Saran Ken MD Primary Care Provider [phone] Donny Antonio MD Unavailable [phone] Aliad Castillo MD Unavailable Reason for Visit * Reason Comments Medication Refill Encounter Details Date Type Department Care Team (Late st Contact Info) Description 04/22/2024 Refill [facility] Medical Group - Family Medicine [facility] [address] [place] [address] Maxine Vergara, [facility] [address] [place] [address] Medication Refill Social History Tobacco Use Types [...] drink = 0.6 oz pur e alcohol) [facility] Utilities Answer Date Recorded In the past 12 months has th e electric, gas, oil, or water company threatened to shut off services in your home? No 11/09/2023 Social Connection and Isolation Panel [NHANES] A nswer Date Recorded In a typical week, how many times do you talk on the phone with family, friends, or neighbors? Twice a week 11/09/2023 How often do you get together with friends or re latives? Once a week 11/09/2023 How often do you attend presybeterian or tenriism serv ices? Never 11/09/2023 Do you belong to any clubs o r organizations such as presybeterian groups, unions, fraternal or athletic groups, or school groups? No 11/09/2023 How often do you attend meet ings of the clubs or organizations you belong to? Never 11/09/2023 Are you , , di vorced, , never , or living with a partner? 11/09/2023 AUDIT-C Answer Date Recorded Q1: How often do you have a drink containing alc ohol? Monthly or less 11/09/2023 Q2: How many drinks containi ng alcohol do you have on a typical day when you are drinking? 1 or 2 11/09/2023 Q3: How often do you have si x or more drinks on one occasion? Never 11/09/2023 Overall Financial Resource Strain (CARDIA) Answe r Date Recorded How hard is it for you to pa y for the very basics like food, housing, medical care, and heating? Not very hard 11/09/2023 PHQ-2 Answer Date Recorded Total Score - Questions 1-9 0 02/13 [facility] - Occupational Stress Questionnaire Answer Date Recorded Do you feel stress - tense, restless, nervous, or anxious, or unable to sleep at night because your mind is troubled all the time - these days? Only a little 11/09/2023 Exercise Vital Sign Answer Date Recorde d On average, how many days pe r week do you engage in moderate to strenuous exercise (like a brisk walk)? 0 days 11/09/2023 On average, how many minutes do you engage in exercise at this level? 0 min 11/09/2023 Hunger Vital Sign Answer Date Recorded Within the past 12 months, y ou worried that your food would run out before you got the money to buy more. Never true 11/09/19 24 Within the past 12 months, t he food you bought just didn't last and you didn't have money to get more. Never true 11/09/2023 PRAPARE - Transportation Answer Date Re corded In the past 12 months, has l ack of transportation kept you from medical appointments or from getting medications? No 10/15 In the past 12 months, has l ack of transportation kept you from meetings, work, or from getting things needed for daily living? No 11/09/2023 Housing Stability Vital Sign Answer Oscar e [...] place to sleep or slept in a usp (including now)? No 08/02/2023 Housing Stability Vital Sign Answer Oscar e Recorded In the last 12 months, was t here a time when you were not able to pay the mortgage or rent on time? Yes 11/09/2023 In the past 12 months, how m any times have you moved where you were living? 0 11/09/2023 At any time in the [facility], were you homeless or living in a usp (including now)? 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 Requested Prescriptions Pending Prescriptions Disp Refills cyanocobalamin (VITAMIN B-12) 1000 MCG/ML Solution [Pharmacy Med Name: CYANOCOBALAMIN 1000MCG/ML INJ, 1ML] 3 mL 1 Sig: INJECT 1 ML UNDER THE SKIN MONTLY Not Delegated - Off Protocol Failed - 04/23/2024 1:20 PM Failed - This refill cannot be delegated Passed - Visit with relevant provider in past 12 months or upcoming 90 days Recent Visits Date Type Provider Dept 03/13/24 Office Visit Saran Ken MD [facility] 02/24/24 [facility] 11/09/23 Office Visit Maxine Vergara PAC [facility] 08/04/23 Office Visit James Phoenix MD [facility] 07/04/23 Office Visit Baljeet Abreu APRN, [facility] 05/27/23 Office Visit Baljeet Abreu APRN, MARY[facility] Showing recent visits within past 365 days and meeting all other requirements Future Appointments Date Type Provider Dept 07/16/24 Appointment Saran Ken MD [facility] Showing future appointments within next 90 days and meeting all other requirements SE INSTRUCTOR documented in this encounter Plan of Treatment Upcoming Encounters Date Type Department Care Team (Late st Contact Info) Description 08/03/2024 11:30 AM CDT Office Visit [facility] Medical Group - Cardiology - [place] [address] [place] [phone] Chiquis Kaplan APRN, TRANSFER STATION OPERATOR [address] [place] [address] 10/11/2024 2:00 PM CDT Office Visit [facility] Group - Endocrinology - [place] [address] [place] [address] Alida Castillo MD [address] [address] 10/30/2024 2:45 PM CDT [facility] Visit [facility] - Family [facility] [address] [place] [address] Saran Ken MD [address] [address] documented as of this encounter Visit Diagnoses Not on filedocumented in this encounter Additional Health Concerns Assessment Noted Time PHQ-9 Depression Total Score: 0 02/24/20 24 11:18 AM CDT documented as of this encounter Care Teams Jail Manager Relationship Specialty Start Date End Date Saran Ken MD [address] [address] PCP - General Family Medicine 03/13/24 Ivon Triplett, OSTEOPATHIC MEDICINE TEACHER, TRANSFER STATION OPERATOR Nurse Practitioner Advanced Practice Nurse 05/25/16 Susan Carmona MD [address] [place] [address] Consulting Physician Gastroenterology 04/22/22 Donny Antonio MD [address] [place] [address] Consulting Physician Neurology 03/22/24 Alida Castillo MD [address] [address] Consulting Physician Endocrinology 07/13/24 documented as of this encounter
--- OUTSIDE RECORDS SUMMARY | 2024-07-23 16:16 | XMS_ITS | Referral Summary ---
Author Organization [facility] Address [address] [place] [address] Care Team Providers Care Angiography Nurse Name Role Phone Cari Marvin Primary Care Provider [phone] Source Comments [facility],non-owned Affiliates and Associated Physician Practices is amultiple site organization consisting of ambulatory clinics and hospital sitesin [place], [place], [place] and [place]. This disclosure is being madepursuant to the Care Everywhere program and may not contain all information available regarding this patient. Last updated 18.[facility] Allergies Active Allergy Reactions Criticality Noted Date Comments Amoxicillin Other Low 01/13/2016 Red eyes Amoxicillin-Pot Clavulanate Nausea Low 01/13/2016 Amoxicillin-Pot Clavulanate Nausea and/or Vomiting,Vomiting 07/28/2015 Augmentin Vomiting 10/27/2020 Doxycycline Other Low 01/13/2016 Patient does not remember Dyclonine Unknown 10/27/2020 Erythromycin Other Low 01/13/2016 Patient does not remember Penicillins Itching 10/27/2020 Simvastatin Other Low 01/13/2016 Patient does not remember Medications * Be aware that medications may not be up to date on this document. Alwaysverify current medications with the patient. Medication Sig Dispensed Refills Start Date End Date Status dicyclomine (BENTYL) 20 MG tablet Take by mouth. 07/28/2015 Active albuterol HFA (PROVENTIL HFA) 108 (90 BASE) MCG/ACT inhaler Inhale 2 (two) puffs by mouth as directed 01/13/2016 Active triamcinolone acetonide (KENALOG) 0.1 % ointment 80 g 3 01/13/2016 Active Additional Information Patient taking differently: 1 g Topical DIRECTED, Reported on 08/11/2022 hydroCHLOROthiazide (HYDRODIURIL) 12.5 MG Take 1 (one) tablet by mouth once daily 01/13/2016 Active atorvastatin (LIPITOR) 80 MG tablet Take 1 (one) tablet by mouth at bedtime Active Acetaminophen (TYLENOL PO) Take 1-2 tablets by mouth as directed Active Blood Glucose Monitoring Suppl (ACCU-CHEK KRISHNA PLUS) w/Device KIT as directed 01/01/2019 Activ e aspirin (ASPIRIN) 81 MG chew tablet Take 1 (one) tablet by mouth once daily 0 10/25/2018 Active fluticasone propionate (FLONASE) 50 MCG/ACT nasal spray Rebuck 1 (one) spray into each nostril once daily Active ACCU-CHEK KIRSHNA PLUS test strip 1 (one) strip as directed 01/01/2019 Active VASCEPA 1 g capsule Take 1 g by mouth 2 times daily with morning and evening meal 06/08/2019 Active SOFTCLIX LANCETS MISC as directed 01/08/2019 Active albuterol (PROVENTIL;VENTOLIN) (2.5 MG/3ML) 0.083% nebulizer solution Inhale 2.5 (two and one-half) mg by mouth as directed 6 01/04/2019 Active pantoprazole EC (PROTONIX) 40 MG tablet Take 1 (one) tablet by mouth once daily 06/20/2019 Active ondansetron (ZOFRAN) 4 MG tablet Take 1 (one) tablet by mouth every 6 hours as needed 10/02/2020 Active potassium chloride ER (KLOR-CON M) 20 MEQ tablet Take 1 (one) tablet by mouth once daily 03/19/2021 Active Jardiance 10 MG tablet Take 1 (one) tablet by mouth once daily 07/13/2022 Active losartan (Cozaar) 50 MG tablet Take 1 (one) tablet by mouth once daily 05/20/2022 Active metFORMIN (Glucophage) 500 MG tablet Take 2 (two) tablets by mouth 2 times daily 06/22/2022 Active amitriptyline (Elavil) 10 MG tablet Take 1 (one) tablet by mouth 07/14/2022 Active azelastine (Optivar) 0.05 % ophthalmic solution 08/03/2022 Active Dulera 200-5 MCG/ACT inhaler INHALE 2 PUFFS BY MOUTH TWICE DAILY. RINSE AND SPIT AFTER EVERY USE 10/03/2022 Active pregabalin (Lyrica) 150 MG capsule Take 1 (one) capsule by mouth 2 times daily Active Active Problems Problem Noted Date Diagnosed Date History of colon polyps 04/22/2022 10/15/19 Abdominal pain 04/22/2022 10/14/2022 HLD (hyperlipidemia) 10/27/2020 Painless rectal bleeding 10/27/2020 Obesity 10/27/2020 External hemorrhoids 10/27/2020 Tobacco abuse 10/27/2020 Skin tag 10/27/2020 Primary osteoarthritis of both hips 10/24/2020 Piriformis syndrome of both sides 10/24/2020 Extrinsic asthma 10/06/2020 Obstructive sleep apnea syndrome 10/06/2020 Menopause present 10/06/2020 Nausea 05/23/2020 Anxiety 04/14/2020 High blood pressure 04/14/2020 Irritable bowel syndrome 07/30/2019 GERD (gastroesophageal reflux disease) 0 Melanocytic nevus 01/13/2016 Other seborrheic keratosis 01/13/2016 Other psoriasis 01/13/2016 Xanthelasma of right eyelid 01/13/2016 Xanthelasma of left eyelid 01/13/2016 Xanthelasma of eyelid, bilateral 01/13/2016 Seborrheic keratoses 01/13/2016 Other psoriasis 01/13/2016 Multiple benign nevi 01/13/2016 Seborrheic keratosis 01/13/2016 Xanthelasma of eyelid 01/13/2016 DM (diabetes mellitus) 05/16/2014 COPD (chronic obstructive pulmonary disease) 05/2014 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 (AF LURIA, FLUZONE TRIVALENT; 6MO+) (IIV3) 01/23/2016,05/16/2015 Covid Pfizer primary Monoval ent 12+ yr 0.3ml 06/30/2021 FLU VACCINE QUAD IIV4 SPLIT 0.25 ML IM 02/09/2016 FLU VACCINE TRI IIV3 SPLIT P F IM (FLUVIRIN) 01/23/2016,05/16/2015 HEP A VACCINE, ADULT 06/30/2016,12/29/2015 INFLUENZA VACCINE 02/15/2018, 6,05/16/2015,2014 INFLUENZA VACCINE, QUADR. (F LUZONE; FLULAVAL; FLUARIX; AFLURIA QUADRIVALENT; 6MO+), 0.5 ML (IIV4) 03/16/2021,01/28/2020,02/01/2019,2017,02/14/2017 PNEUMOCOCCAL PPSV23 01/01/2022,05/16/2015,2014 Pneumococcal Pcv13 Conj 02/06/2015 TDAP (7yrs+) 12/29/2015 Zoster Hzv Vacc Recombinant Inj Im 03/08/2022, Social History Tobacco Use Types Packs/Day Years Used Date Smoking Tobacco: Every Day Cigarettes Smokeless Tobacco: Never Tobacco Cessation:Ready to Q uit: Not Asked; Counseling Given: Not Answered Alcohol Use Standard Drinks/Week Comments Yes 0 (1 standard drink = 0.6 oz pur e alcohol) AUDIT-C Answer Date Recorded Frequency of Alcohol Consumption Monthly or less 03/07/2019 Average Number of Drinks Not on file 019 Frequency of Binge Drinking Not on file 02/14 Sex and Gender Information Value Date Recorded Sex Assigned at Not on file Gender Identity Not on file Sexual Orientation Not on file Last Filed Vital Signs Vital Sign Reading Time Taken Comments Blood Pressure 141/87 07/21/2021 10:36 AM PUGGER HELPER Pulse 94 07/21/2021 10:36 AM PUGGER HELPER Temperature 36.4 C (97.6 F) 10/22/2019 1:52 PM CDT Respiratory Rate 16 07/21/2021 10:36 AM PUGGER HELPER Oxygen Saturation 97% 07/21/2021 10:36 AM PUGGER HELPER Inhaled Oxygen Concentration - - Weight 76 kg (167 lb 9.6 oz) 03/06/2024 3:48 PM CDT Height 158.8 cm (5' 2.5 ) 08/16/2023 2:28 PM CDT Body Mass Index 30.17 08/16/2023 2:28 PM CDT Plan of Treatment Upcoming Encounters Date Type Department Care Team (Late st Contact Info) Description 09/04/2024 1:30 PM CDT Office Visit [facility] - Orthopedics [address] [facility] [place] [phone] Elia Padron MD [address] [place] [address] Care Teams Angiography Nurse Relationship Specialty Start Date End Date Cari Marvin DO [address] [place] [phone] PCP - General Family Medicine 02/03/24
--- OUTSIDE RECORDS SUMMARY | 2024-07-23 16:16 | XMS_ITS | Referral Summary ---
Author Organization [facility] Address [address] [place] [address] Care Team Providers Care Drain Tile Machine Operator Name Role Phone Saran Ken MD Primary Care Provider [phone] Encounters Date Type Department Care Team Description 06/28/2024 Telephone [facility] Ophthalmology [address] [place] [phone] Natasha Flores MD PhD Med Management 06/27/2024 10:30 AM SCIENTIFIC AIDE Office Visit [facility] Ophthalmology [address] [place] [phone] Natasha Flores MD PhD Chronic conjunctivitis of both eyes, unspecified chronic conjunctivitis type (Primary Dx) 04/30/2024 Telephone [facility] Ophthalmology [address] [place] [address] Natasha Flores MD PhD Med Management 04/27/2024 3:45 PM SCIENTIFIC AIDE - 04/27/2024 11:59 PM SCIENTIFIC AIDE Hospital Encounter [facility] [address] [place] [address] Xanthoma planum of eyelid Discharge Disposition: Discharge to home or self care 04/27/2024 2:00 PM SCIENTIFIC AIDE Office Visit [facility] Ophthalmology [facility] [address] [phone] Natasha Flores MD PhD Chronic conjunctivitis of both eyes, unspecified chronic conjunctivitis type (Primary Dx) from Last 3 Months Allergies Active Allergy Reactions Criticality Noted Date [...] mellitus) 05/16/2014 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 Social History Tobacco Use Types Packs/Day Years [...] on file Legal Sex Female 7:24 AM SCIENTIFIC AIDE Gender Identity Not on file Sexual Orientation Not on file Plan of Treatment Not on file Procedures Procedure Name Priority Date/Time Associated Diagnosis Comments AEROBIC AND ANAEROBIC CULTURE AND GRAM STAIN Routine 04/27/2024 5:13 PM SCIENTIFIC AIDE AEROBIC AND ANAEROBIC CULTURE AND GRAM STAIN Routine 04/27/2024 5:13 PM SCIENTIFIC AIDE Xanthoma planum of eyelid from Last 3 Months Results * (ABNORMAL) Aerobic and anaerobic culture and gram stain Cornea Eye, left (04/27/2024 5:13 PM SCIENTIFIC AIDE) Direct Specimen Exam Stain: No polymorphonuclear leukocytes [...] 15:06 by: Elisabeth Nicolas MT. (.) [facility] Organism STAPHYLOCOCCUS AUREUS [facility] Organism MIXED SKIN MICROORGANISMS. [facility] Cornea (Eye, left) 04/27/2024 5:13 PM SCIENTIFIC AIDE 04/27/2024 5:48 PM SCIENTIFIC AIDE Narrative [facility] - 05/04/2024 2:52 PM SCIENTIFIC AIDE Testing performed by [facility] Microbiology Laboratory ([phone]) Specimens submitted from normally sterile body sites [...] Natasha Flores MD PhD LAB MICROBIOLOGY - [facility] ORDERABLES Final Result [facility] [place] [address] * (ABNORMAL) Aerobic and anaerobic culture and gram stain Cornea Eye, right (04/27/2024 5:13 PM SCIENTIFIC AIDE) Direct Specimen Exam Stain: No polymorphonuclear leukocytes [...] 15:06 by: Elisabeth Nicolas MT. (.) [facility] Organism STAPHYLOCOCCUS AUREUS [facility] Organism MIXED SKIN MICROORGANISMS. [facility] Cornea (Eye, right) 04/27/2024 5:13 PM SCIENTIFIC AIDE 04/27/2024 5:47 PM SCIENTIFIC AIDE Narrative [facility] - 05/04/2024 2:51 PM SCIENTIFIC AIDE Testing performed by [facility] Microbiology Laboratory ([phone]) Specimens submitted from normally sterile body sites [...] Natasha Flores MD PhD LAB MICROBIOLOGY - [facility] ORDERABLES Final Result [facility] [place] [address] from Last 3 Months Insurance MEDICARE SOLUTIONS MEDICARE SOLUTIONS Care Teams Drain Tile Machine Operator Relationship Specialty Start Date End Date Saran Ken MD [address] [address] PCP - General Family Medicine 06/27/24
--- OUTSIDE RECORDS SUMMARY | 2024-07-23 16:16 | XMS_ITS | Clinical Summary ---
Author Organization [facility] Address [address] [place] [address] Care Team Providers Care Caustic Room Attendant Name Role Phone Cari Marvin Primary Care Provider [phone] Source Comments [facility],non-owned Affiliates and Associated Physician Practices is amultiple site organization consisting of ambulatory clinics and hospital sitesin [place], [place] and [place]. This disclosure is being madepursuant to the Care Everywhere program and may not contain all information available regarding this patient. Last updated 18.[facility] Allergies Active Allergy Reactions Criticality Noted Date [...] fluticasone propionate (FLONASE) 50 MCG/ACT nasal spray Friendship 1 (one) spray into each nostril once daily Active ACCU-CHEK KRISHNA PLUS test strip 1 (one) strip as [...] Zoster Hzv Vacc Recombinant Inj Im 03/08/2022, Family History Medical History Relation Name Comments Cancer - Skin, Melanoma Neg Hx Cancer - Skin, Non Melanoma Neg Hx Social History Tobacco Use Types Packs/Day Years [...] Comments Blood Pressure 141/87 07/21/2021 10:36 AM ENGINE MAINTENANCE MECHANIC Pulse 94 07/21/2021 10:36 AM ENGINE MAINTENANCE MECHANIC Temperature 36.4 C (97.6 F) 10/22/2019 1:52 PM CDT Respiratory Rate 16 07/21/2021 10:36 AM ENGINE MAINTENANCE MECHANIC Oxygen Saturation 97% 07/21/2021 10:36 AM ENGINE MAINTENANCE MECHANIC Inhaled Oxygen Concentration - - Weight 76 kg (167 lb 9.6 oz) 03/06/2024 3:48 PM CDT Height 158.8 cm (5' 2.5 ) 08/16/2023 2:28 PM CDT Body Mass Index 30.17 08/16/2023 2:28 PM CDT Plan of Treatment Upcoming Encounters Date Type Department Care Team (Late st Contact Info) Description 09/04/2024 1:30 PM CDT Office Visit [facility] - Orthopedics [address] [facility] [place] [address] Elia Padron MD [address] [place] [address] Health Maintenance Due Date Last Done Comments BONE DENSITY TESTING 1955 COLOGUARD (AGES 45-75) - COLON CA SCREENING 1956 COLON MONITORING 1956 COLONOSCOPY - COLON CA SCREENING 1956 CT COLONOGRAPHY - COLON CA SCREENING 1955 Colorectal Cancer Screening 1956 FIT - COLON CA SCREENING 1956 FLEX SIG - COLON CA SCREENING 1956 MAMMOGRAM 1956 HEPATITIS C SCREENING 12/24/1974 Respiratory Syncytial Virus (RSV) Vaccine Pt: or over 60 yrs (1 - Risk 60-74 years 1-dose series) 2016 DIABETES RETINOPATHY SCREENING 10/27/2020 DIABETES-FOOT EXAM WITH MONOFILAMENT 10/27/2020 COVID-19 VACCINE (2023- season) 2024 06/30/2021, 01/06/2021, 12/16/2020 INFLUENZA VACCINE (#1) 2024 , 01/28/2020, 02/01/2019, Additional history exists DIABETES-HGB A1C 05/10/2024 11/09/2023, 07/04/2023 DEPRESSION SCREENING 05/16/2024 DIABETES - URINE PROTEIN SCREENING 05/16/2024 MEDICARE AWV CALENDAR YEAR 2024 DIABETES-SERUM CREATININE 01/05/20252023, 11/09/2023, 05/18/2021, Additional history exists DTAP/TDAP/TD VACCINES (2 - Td or Tdap) 2025 12/29/2015 PNEUMOCOCCAL VACCINE 50+ Completed 022, 05/16/2015, 03/24/2015, Additional history exists ZOSTER VACCINE Completed 03/08/2022, 01/01/2022 HEPATITIS B VACCINE Aged Out No longe r eligible based on patient's age to complete this topic HIB VACCINE Aged Out No longer eligi ble based on patient's age to complete this topic HPV VACCINE Aged Out No longer eligi ble based on patient's age to complete this topic MENINGOCOCCAL (Group B) VACCINE Aged Out No longer eligible based on patient's age to complete this topic MENINGOCOCCAL VACCINE Aged Out No roger yumiko eligible based on patient's age to complete this topic Care Teams Caustic Room Attendant Relationship Specialty Start Date End Date Cari Marvin DO [address] [place] [phone] PCP - General Family Medicine 02/03/24
--- OUTSIDE RECORDS SUMMARY | 2024-07-23 16:16 | XMS_ITS | Encounter Summary ---
Author Organization [facility] Address [address] [place] [address] Phone Care Team Providers Care Patient Partner Name Role Phone Ivon Triplett APRPankaj RUFFLING MACHINE OPERATOR Unavailable James Phoenix MD Primary Care Provider [phone] Susan Carmona MD Unavailable [phone] Cari Marvin DO Primary Care Provider Cari Marvin DO Primary Care Provider Saran Ken MD Primary Care Provider [phone] Donny Antonio MD Unavailable [phone] Alida Castillo MD Unavailable Reason for Visit * Reason Comments Medication Refill Encounter Details Date Type Department Care Team (Late st Contact Info) Description 04/24/2023 Refill [facility] - Family Medicine [facility] [address] [place] [address] James Phoenix MD [address] [place] [address] Medication Refill Social History Tobacco Use Types [...] 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 Requested Prescriptions Pending Prescriptions Disp Refills atorvastatin (LIPITOR) 80 MG Tablet [Pharmacy Med Name: ATORVASTATIN 80MG TABLETS] 90 Tablet 3 Sig: TAKE 1 TABLET BY MOUTH DAILY Hmg CoA Reductase Inhibitors Protocol Passed - 04/24/2023 1:37 PM Passed - Visit with relevant provider in past 12 months or upcoming 90 days Recent Visits Date Type Provider Dept 03/17/23 Office Visit James Phoenix MD [facility] 12/30/22 Office Visit Jaems Phoenix MD [facility] 11/12/22 Office Visit James Phoenix MD [facility] Showing recent visits within past 365 days and meeting all other requirements Future Appointments Date Type Provider Dept 07/18/23 Appointment James Phoenix MD [facility] Showing future appointments within next 90 days and meeting all other requirements Passed - Lipid panel in past 12 months LDL Date Value Ref Range Status 11/25/2022 77 5 - 130 mg/dL Final HDL CHOLESTEROL Date Value Ref Range Status 11/25/2022 41.4 >40 mg/dL Final CHOLESTEROL Date Value Ref Range Status 11/25/2022 178 <200 mg/dL Final TRIGLYCERIDES Date Value Ref Range Status 11/25/2022 297 (H) <150 mg/dL Final VLDL Date Value Ref Range Status 11/25/2022 59 (H) 5 - 55 mg/dL Final CHOL/HDL RATIO Date Value Ref Range Status 11/25/2022 4.3 0.0 - 4.4 Final NON-HDL CHOLESTEROL Date Value Ref Range Status 11/25/2022 136.6 (H) <130 mg/dL Final Passed - CMP in past 12 months SODIUM Date Value Ref Range Status 03/18/2023 137 136 - 145 mmol/L Final POTASSIUM Date Value Ref Range Status 03/18/2023 4.0 3.5 - 5.1 mmol/L Final CHLORIDE Date Value Ref Range Status 03/18/2023 99 98 - 107 mmol/L Final CO2, VENOUS Date Value Ref Range Status 03/18/2023 22 22 - 30 mmol/L Final ANION GAP Date Value Ref Range Status 03/18/2023 20.0 (H) <18.0 mmol/L Final GLUCOSE Date Value Ref Range Status 03/18/2023 143 (H) 70 - 99 mg/dL Final BUN Date Value Ref Range Status 03/18/2023 17 10 - 20 mg/dL Final CREATININE - POCT Date Value Ref Range Status 09/29/2021 0.6 0.6 - 1.3 mg/dL Final CREATININE, BLOOD Date Value Ref Range Status 03/18/2023 0.70 0.60 - 1.00 mg/dL Final BUN/CREATININE RATIO Date Value Ref Range Status 03/18/2023 24 (H) 12 - 20 ratio Final TOTAL PROTEIN Date Value Ref Range Status 03/18/2023 7.5 6.3 - 8.2 g/dL Final ALBUMIN Date Value Ref Range Status 03/18/2023 4.3 3.5 - 5.0 g/dL Final A/G RATIO Date Value Ref Range Status 03/18/2023 1.3 1.0 - 2.2 Final CALCIUM Date Value Ref Range Status 03/18/2023 9.6 8.7 - 10.5 mg/dL Final T BILI Date Value Ref Range Status 03/18/2023 0.5 0.2 - 1.2 mg/dL Final SGOT (AST) Date Value Ref Range Status 03/18/2023 17 5 - 34 U/L Final SGPT (ALT) Date Value Ref Range Status 03/18/2023 26 0 - 55 U/L Final ALKALINE PHOSPHATASE Date Value Ref Range Status 03/18/2023 133 40 - 150 U/L Final GFR, EST. NONAFRICAN Date Value Ref Range Status 03/18/2023 >60 >=60 Final GFR, EST. Date Value Ref Range Status 03/18/2023 >60 >=60 Final GFR, ESTIMATED Date Value Ref Range Status 03/18/2023 >60 >=60 Final Comment: Creatinine Clearance is the preferred criteria for selecting drug dose adjustments in renally impaired patients. The GFR is provided as additional pertinent clinical information. GFR is reported in mL/min/1.73 sq m. Calculation based on the Chronic Kidney Disease Epidemiology Collaboration (CKD- EPI) equation refitwithout adjustment for race. IS THE PATIENT REQUIRED TO BE FASTING? Date Value Ref Range Status 03/18/2023 No Final CH FOLDER documented in this encounter Plan of Treatment Upcoming Encounters Date Type Department Care Team (Late st Contact Info) Description 08/03/2024 11:30 AM CDT Office Visit [facility] - Cardiology - [place] [address] [place] [address] Chiquis Kaplan APRN, RUFFLING MACHINE OPERATOR [address] [place] [address] 10/11/2024 2:00 PM CDT Office Visit [facility] - Endocrinology - [place] [address] [place] [address] Alida Castillo MD [address] [address] 10/30/2024 2:45 PM CDT Office Visit [facility] - Family Medicine [facility] [address] [place] [address] Saran Ken MD [address]2 [facility] [address] [place] [address] documented as of this encounter Visit Diagnoses Not on filedocumented in this encounter Additional Health Concerns Assessment Noted Time PHQ-9 Depression Total Score: 0 11/13/19 23 1:55 PM CDT documented as of this encounter Care Teams Patient Partner Relationship Specialty Start Date End Date James Phoenix MD PCP - General Family Medicine 04/11/20 01/12/24 Cari Marvin DO [address] [address] PCP - General Family Medicine 01/13/24 02/15/24 Cari Marvin DO [address] [address] PCP - General Family Medicine 02/24/24 03/12/24 Saran Ken MD #[address] [address] PCP - General Family Medicine 03/13/24 Ivon Triplett APRN, RUFFLING MACHINE OPERATOR Nurse Practitioner Advanced Practice Nurse 05/25/16 Susan Carmona MD [address] [place] [address] Consulting Physician Gastroenterology 04/22/22 Donny Antonio MD [address] [place] [id number] Consulting Physician Neurology 03/22/24 Alida Castillo MD [address] [address] Consulting Physician Endocrinology 07/13/24 documented as of this encounter
--- OUTSIDE RECORDS SUMMARY | 2024-07-23 16:16 | XMS_ITS | Clinical Summary ---
Author Organization [facility] Address [address] [place] [address] Phone Care Team Providers Care Video Control Operator Name Role Phone Susan Carmona MD Unavailable [phone] Saran Ken MD Primary Care Provider [phone] Donny Antonio MD Unavailable [phone] Alida Castillo MD Unavailable Allergies Active Allergy Reactions Criticality Noted Date Comments Amoxicillin Other (see Comments) Eyes become extremely dry and red Amoxicillin-Pot Clavulanate Nausea,Vomiting 07/28/2015 Doxycycline Unknown 02/02/2016 Erythromycin Unknown 11/25/2015 Simvastatin Unknown 02/02/2016 Medications albuterol (PROVENTIL HFA, VENTOLIN HFA) 108 (90 BASE) MCG/ACT Aerosol Solution take 2 Puffs by inhalation as needed for Wheezing. Active aspirin EC 81 MG Tablet Delayed Response Take 81 mg by mouth daily. Active fluticasone (FLONASE) 50 MCG/ACT Suspension by Nasal route as needed. Use in each nostril as directed. Active clotrimazole-bet amethasone (LOTRISONE) 1-0.05 % Cream APPLY BID PRN FOR RASH 07/26/19 Active OXYGEN CONCENTRATOR by Does not apply route. Use as directed Active azelastine (OPTIVAR) 0.05 % Solution Place 1 Drop in both eyes in the morning and at bedtime. 03/01/20 Active lidocaine (LIDODERM) 5 % Patch 1 Patch by Transdermal route every 24 hours. Apply to area of greatest pain. 30 Patch 5 07/07/19 24 Active SYRINGE-NEEDLE, DISP, 3 ML (B-D 3CC LUER-PAMELA SYR 25GX1 ) 25G X 1 3 ML MiscIndications: Vitamin B 12 deficiency Use to inject b 12 shots every week for 4 weeks then monthly 8 Each 3 11/09/19 24 Active ondansetron (Zofran) 4 MG Tablet Take 1 Tablet by mouth every 8 hours as needed for Nausea - 1st line. 15 Tablet 11/23/19 24 Active pantoprazole (PROTONIX) 40 MG Tablet Delayed ResponseIndicati ons:Gastroesopha geal reflux disease, unspecified whether esophagitis present TAKE 1 TABLET BY MOUTH DAILY 90 Tablet 1 02/24/20 24 Active Nicotine 21-14-7 MG/24HR Kit Use as directed on package insert. 1 Each 03/13/20 Active Additional Information Patient not taking.Reported on 07/16/2024 topiramate (TOPAMAX) 25 MG Tablet Take 1 Tablet by mouth 2 times daily. 180 Tablet 3 03/19/20 24 Active Potassium Chloride ER (KLORCON) 20 MEQ Tablet Controlled Release TAKE 1 TABLET BY MOUTH DAILY 90 Tablet 1 03/26/20 24 Active cyanocobalamin (VITAMIN B-12) 1000 MCG/ML Solution INJECT 1 ML UNDER THE SKIN MONTLY 3 mL 1 04/23/20 24 Active Ozempic, 1 MG/DOSE, 4 MG/3ML Solution Pen-injector INJECT 1 MG BY SUBCUTANEOUS ROUTE ONCE WEEKLY 3 mL 2 04/27/20 24 Active Dulera 200-5 MCG/ACT AerosolIndicatio ns:Chronic obstructive pulmonary disease, unspecified COPD type (HCC) INHALE 2 PUFFS BY MOUTH TWICE DAILY 13 g 3 04/27/20 24 Active atorvastatin (LIPITOR) 80 MG Tablet TAKE 1 TABLET BY MOUTH DAILY 90 Tablet 3 05/05/20 24 Active metoprolol Succinate (TOPROL-XL) 50 MG TABLET SR 24 HR Take 1 Tablet by mouth daily. 90 Tablet 1 05/14/20 24 Active hydroCHLOROthiaz nevin 12.5 MG Tablet TAKE 1 TABLET BY MOUTH DAILY 90 Tablet 1 05/21/19 25 Active amitriptyline (ELAVIL) 10 MG TabletIndication s:Irritable bowel syndrome with both constipation and diarrhea TAKE 1 TABLET BY MOUTH EVERY NIGHT 90 Tablet 1 06/07/19 25 Active pregabalin (LYRICA) 75 MG CapsuleIndicatio ns:Chronic tension-type headache, intractable TAKE 2 CAPSULES BY MOUTH TWICE DAILY 360 Capsule 07/03/19 25 Active moxifloxacin (VIGAMOX) 0.5 % Solution Place 1 Drop in affected eye(s). 06/27/19 25 Active Blood Glucose Monitoring Suppl (Accu-Chek Guide) w/Device Kit Check blood glucose before breakfast or dinner 1 Kit 07/13/19 25 Active Accu-Chek Softclix Lancets Misc Use 1 lancet to test blood glucose daily 100 Each 3 07/13/19 25 Active Glucose Blood (Accu-Chek Guide Test) Strip Use as directed 100 Each 3 07/13/19 25 Active metFORMIN (GLUCOPHAGE-XR) 500 MG TABLET SR 24 HR Take 2 Tablets by mouth daily. This RX is for Metformin SR. 360 Tablet 1 07/13/19 25 Active Blood Glucose Monitoring Suppl (Accu-Chek Guide) w/Device Kit U TO TEST BID 10/30/19 20 025 Discontin ued(Reord er) Accu-Chek Softclix Lancets Misc Use 1 lancet to test blood glucose three times daily 300 Each 3 08/22/19 21 025 Discontin ued(Reord er) Accu-Chek Guide Strip TEST BLOOD GLUCOSE THREE TIMES DAILY 300 Strip 3 05/31/19 23 025 Discontin ued(Dupli levy Order) pregabalin (LYRICA) 75 MG CapsuleIndicatio ns:Chronic tension-type headache, intractable TAKE 2 CAPSULES BY MOUTH TWICE DAILY 360 Capsule 1 11/09/19 24 025 Discontin ued(Reord er) Active Problems Problem Noted Date Diagnosed Date Intractable chronic cluster headache 03/13/2024 Obesity (BMI 30-39.9) 03/13/2024 Dizziness 03/13/2024 Chronic tension-type headache, intractable 08/23 Abdominal pain 04/22/2022 History of colon polyps 04/22/2022 Piriformis syndrome of both sides 10/24/2020 Primary osteoarthritis of both hips 10/24/2020 Extrinsic asthma 10/06/2020 Menopause present 10/06/2020 Obstructive sleep apnea syndrome 10/06/2020 Nausea 05/23/2020 Anxiety about health 04/14/2020 High blood pressure 04/14/2020 Melanocytic nevus 01/13/2016 Multiple benign nevi 01/13/2016 Other psoriasis 01/13/2016 Seborrheic keratosis 01/13/2016 Xanthelasma of eyelid 01/13/2016 DM (diabetes mellitus) 05/16/2014 COPD (chronic obstructive pulmonary disease) 05/2014 Diarrhea Irritable bowel syndrome GERD (gastroesophageal reflux disease) HLD (hyperlipidemia) Tobacco abuse Encounters Date Type Department Care Team Description 07/16/2024 1:15 PM IT SECURITY CONSULTANT Office Visit [facility] [place] [address] [place] [address] Saran Ken MD Primary hypertension (Primary Dx); History of colon polyps; Intractable chronic cluster headache; Hyperlipidemia, unspecified hyperlipidemia type Discharge Disposition: Discharged to home or Selfcare 07/15/2024 Travel 07/13/2024 1:00 PM IT SECURITY CONSULTANT Office Visit [facility] Endocrinology - Mobile [address] [place] [address] Alida Castillo MD Type 2 diabetes mellitus without complication, unspecified whether fpc insulin use (HCC) (Primary Dx); Class 1 obesity due to excess calories with serious comorbidity and body mass index (BMI) of 30.0 to 30.9 in adult; Tobacco use; New medication added Discharge Disposition: Discharged to home or Selfcare 07/11/2024 Travel 07/02/2024 Refill [facility] [place] [address] [place] [address] Saran Ken MD Medication Refill 06/19/2024 1:15 PM IT SECURITY CONSULTANT Office Visit [facility] - Neurology - [place] [address] [place] [address] Donny Antonio MD Chronic nonintractable headache, unspecified headache type (Primary Dx); History of stroke Discharge Disposition: Discharged to home or Selfcare 06/19/[address] [facility] [place] [address] Dnony Antonio MD 06/19/2024 Travel 06/06/2024 [facility] [place] [address] Maxine Vergara, [facility] Medication Refill 05/21/2024 [facility]ill [facility] [address] [place] [address] James Phoenix MD Medication Refill 05/14/2024 [facility] [address] [place] [address] Saran Ken MD Medication Refill 05/04/20[facility] [address] [place] [phone] Saran Ken MD Appointment 05/04/2024 [facility] [address] [place] [address] James Phoenix MD Medication Refill 04/27/2024 [facility] [address] [place] [address] James Phoenix MD Medication Refill 04/27/2024 [facility] [address] [place] [address] Saran Ken MD Medication Refill from Last 3 Months Immunizations Immunization Administration Dates Next Due Covid-19, Mrna, Lnp-s, Pf, 3 0 Mcg/0.3 Ml Dose (Pfizer) 01/06/2021,12/16/2020 Covid-19, Mrna, Lnp-s, Pf, 3 0 Mcg/0.3 Ml Dose, Sebas-sucrose (Home[employer]ru handley top) 06/30/2021 Hepatitis A Vaccine 06/30/2016,12/29/2015 Influenza Vaccine 01/23/2016,05/16/2015 Influenza Vaccine greater than 3 yrs 01/23/2016, 05/16/2015 Influenza Vaccine, Quadrivalent, PF 11/0 05/2020,01/28/2020,02/01/2019,2017,02/14/2017 Influenza, High-dose, Quadrivalent 02/09/2022 Influenza, Injectable, Quadrivalent 02/09/2016 Influenza, Quadrivalent, Adjuvanted 04/13/2023 Influenza, Seasonal, Injecta ble, Undefined 02/15/2018,01/23/2016,05/16/2015,2014 Influenza, high-dose, trivalent, PF 02/09/2024 Pneumococcal Vaccine - 13 Valent 02/06/2015 Pneumococcal Vaccine Adult - 23 Valent 01/01/2022,05/16/2015,03/24/2015 TDAP Vaccine 12/29/2015 Zoster Vaccine Recombinant 03/08/2022,01/01/2022 Family History Medical History Relation Name Comments Chronic Obstructive Pulmonary Disease Brother 1 Cancer Brother 2 Esophageal Cancer Father Hernan Colon Cancer Father Hernan Heart Attack Father Hernan Diabetes Mother Valeria Emphysema Mother Valeria Heart Disease Mother Valeria Cancer Sister unknown origin - metas Relation Name Status Comments Brother 1 Brother 2 Father Hernan Mother Valeria Sister Social History Tobacco Use Types Packs/Day Years Used Date Smoking Tobacco: Every Day Cigarettes 0.5 49.5 Started: 01/29/1972; Last attempted to quit: 08/05/2021 Smokeless Tobacco: Never Tobacco Cessation:Ready to Q uit: Yes; Counseling Given: Yes Comments:It's time for me to quit smoking. I would like to try the patch if my insurance will pay for it. Alcohol Use Standard Drinks/Week Comments Not Currently 0 (1 standard drink = 0.6 oz pur e alcohol) [facility] Utilities Answer Date Recorded In the past 12 months has [employer] water systems, gas, oil, or water company threatened to shut off services in your home? No 07/15/2024 Social Connection and Isolation Panel [NHANES] A nswer Date Recorded In a typical week, how many times do you talk on the phone with family, friends, or neighbors? Once a week 07/15/2024 How often do you get together with friends or re latives? Once a week 07/15/2024 How often do you attend mosque or methodist serv ices? Never 07/15/2024 Do you belong to any clubs o r organizations such as mosque groups, unions, fraternal or athletic groups, or school groups? No 07/15/2024 How often do you attend meet ings of the clubs or organizations you belong to? Never 07/15/2024 Are you , , di vorced, , never , or living with a partner? 07/15/2024 AUDIT-C Answer Date Recorded Q1: How often do you have a drink containing alcohol? Never 07/15/2024 Q2: How many drinks containi ng alcohol do you have on a typical day when you are drinking? Patient does not drink Q3: How often do you have si x or more drinks on one occasion? Never 07/15/2024 Overall Financial Resource Strain (CARDIA) Answe r Date Recorded How hard is it for you to pa y for the very basics like food, housing, medical care, and heating? Not hard at all 07/15/2024 PHQ-2 Answer Date Recorded Total Score - Questions 1-9 0 07/2024 [facility] - Occupational Stress Questionnaire Answer Date Recorded Do you feel stress - tense, restless, nervous, or anxious, or unable to sleep at night because your mind is troubled all the time - these days? Not at all 07/15/2024 Exercise Vital Sign Answer Date Recorde d On average, how many days pe r week do you engage in moderate to strenuous exercise (like a brisk walk)? 0 days 07/15/2024 On average, how many minutes do you engage in exercise at this level? 10 min 07/15/2024 Hunger Vital Sign Answer Date Recorded Within the past 12 months, y ou worried that your food would run out before you got the money to buy more. Never true 07/16/19 25 Within the past 12 months, t he food you bought just didn't last and you didn't have money to get more. Never true 07/15/2024 PRAPARE - Transportation Answer Date Re corded In the past 12 months, has l ack of transportation kept you from medical appointments or from getting medications? No 06/2024 In the past 12 months, has l ack of transportation kept you from meetings, work, or from getting things needed for daily living? No 07/15/2024 Housing Stability Vital Sign Answer Oscar e [...] place to sleep or slept in a fdc (including now)? No 08/02/2023 Housing Stability Vital Sign Answer Oscar e Recorded In the last 12 months, was t here a time when you were not able to pay the mortgage or rent on time? No 07/15/2024 In the past 12 months, how m any times have you moved where you were living? 0 07/15/2024 At any time in the past 12 m [facility], were you homeless or living in a fdc (including now)? 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 Not on file Not on file Not on file Last Filed Vital Signs Vital Sign Reading Time Taken Comments Blood Pressure 114/62 07/16/2024 1:10 PM IT SECURITY CONSULTANT Pulse 91 07/16/2024 1:10 PM IT SECURITY CONSULTANT Temperature 36.3 C (97.4 F) 07/16/2024 1:10 PM IT SECURITY CONSULTANT Respiratory Rate 20 07/13/2024 12:54 PM IT SECURITY CONSULTANT Oxygen Saturation 97% 07/16/2024 1:10 PM IT SECURITY CONSULTANT Inhaled Oxygen Concentration - - Weight 77.1 kg (170 lb) 07/16/2024 1:10 PM IT SECURITY CONSULTANT Height 157.5 cm (5' 2 ) 07/16/2024 1:10 PM IT SECURITY CONSULTANT Body Mass Index 31.09 07/16/2024 1:10 PM IT SECURITY CONSULTANT Plan of Treatment Upcoming Encounters Date Type Department Care Team (Late st Contact Info) Description 08/03/2024 11:30 AM CDT Office Visit [facility] - Cardiology - [place] [address] [place] [address] Chiquis Kaplan, SPICE MIXER, DOUBLE END CHUCKING MACHINE OPERATOR [address] [facility] [address] 10/11/2024 2:00 PM CDT Office Visit [facility] - Endocrinology - [place] [address] [place] [address] Alida Castillo MD [address] [address] 10/30/2024 2:45 PM CDT Office Visit [facility] - Family Medicine - [place] [address] [facility] [address] Saran Ken MD [address] [address] Health Maintenance Due Date Last Done Comments Cologuard 2006 Immunochemical Fecal Occult Blood 2006 Respiratory Syncytial Virus (RSV) Immunization (Adult) (1 - Risk 60-74 years 1-dose series) 2016 Colonoscopy 02/07/2024 02/06/2019, 11/12/2013 Colorectal Cancer Screening 02/07/2024 Mammogram 04/13/2024 04/13/2023, 02/0 11/2021, 05/22/2020 Lung Cancer Screening 07/13/2024 07/14/2023 , 05/10/2021, 04/07/2020 Diabetes: Eye Exam 08/29/2024 08/30/2023, 11/18/2021 Diabetes: Hemoglobin A1c 01/10/2025 025, 11/09/2023, 07/04/2023, Additional history exists DEXA Bone Density 03/04/2025 03/04/2023, , 09/25/2020 Diabetes: Nephropathy Screening 03/19/2025 03/19/2024, 11/09/2023, 04/26/2023, Additional history exists Diabetes: Foot Exam 07/13/2025 07/13/2024 Td Immunization Every 10 Years (Adults With 1 Tdap) 2025 12/29/2015 02/06/2019, 11/12/2013 DTaP/Tdap/Td Immunization Discontinued 12/29/2015 Hepatitis C Virus (HCV) Screening Completed 08/31/2016 SARS-COV-2 Immunization Discontinued 06/30/19 22, 01/06/2021, 12/16/2020 Pneumococcal Immunization (50+ years) Completed 01/01/2022, 05/16/2015, 03/24/2015, Additional history exists Pneumococcal Immunization Combined Discontinued 01/01/2022, 05/16/2015, 03/24/2015, Additional history exists Zoster Immunization Completed 03/08/2022, Influenza Immunization Completed , 04/13/2023, 02/09/2022, Additional history exists Hepatitis B Immunization Discontinued Meningococcal Immunization (ACWY) Aged Out No longer eligible based on patient's age to complete this topic Rotavirus Immunization Aged Out No lo nger eligible based on patient's age to complete this topic Procedures Procedure Name Priority Date/Time Associated Diagnosis Comments POCT GLYCOSYLATED HEMOGLOBIN Routine 07/13/2024 1:05 PM IT SECURITY CONSULTANT Type 2 diabetes mellitus without complication, unspecified whether terminal make up operator insulin use (HCC) CMP (COMPREHENSIVE METABOLIC PANEL) Routine 03/19/2024 4:31 PM IT SECURITY CONSULTANT Chronic nonintractable headache, unspecified headache type HM DILATED EYE EXAM 08/30/2023 1 2:[address] CHEST W/O CONTRAST Routine 07/14/2023 9:41 AM IT SECURITY CONSULTANT Chest pain in adult MAMMOGRAM BILATERAL GENERIC 04/13/2023 12:00 AM IT SECURITY CONSULTANT BONE DENSITY GENERIC 03/04/2023 12:00 AM CDT HEPATITIS PANEL ACUTE (AHP) Routine 08/31/2016 1:40 PM CDT Need for hepatitis C screening test Fatty liver HM COLONOSCOPY Routine 11/12/2013 from Last 3 Months or Most Recently Relevant to Health Maintenance Results * (ABNORMAL) POCT GLYCOSYLATED HEMOGLOBIN (07/13/2024 1:05 PM IT SECURITY CONSULTANT) HGB-A1C 8.1(A) 4 - 6 % Blood 07/13/2024 1:05 PM IT SECURITY CONSULTANT us Alida Castillo MD POINT OF CARE TESTING (MANUAL) F inal Result * (ABNORMAL) CMP (COMPREHENSIVE METABOLIC PANEL) (03/19/2024 4:31 PM IT SECURITY CONSULTANT) SODIUM 141 136 - 145 mmol/L 03/19/2024 5:13 PM IT SECURITY CONSULTANT [facility] POTASSIUM 4.0 3.5 - 5.1 mmol/L 03/19/2024 5:13 PM [facility] CHLORIDE 101 98 - 107 mmol/L 03/19/2024 5:13 PM [facility] CO2, VENOUS 28 22 - 30 mmol/L 03/19/2024 5:13 PM IT SECURITY CONSULTANT [facility] ANION GAP 16.0 <18.0 mmol/L 03/19/2024 5:13 PM [facility] GLUCOSE 146(H) 70 - 99 mg/dL 03/19/2024 5:13 PM [facility] BUN 24(H) 10 - 20 mg/dL 03/19/2024 5:13 PM [facility] CREATININE, BLOOD 0.79 0.60 - 1.00 mg/dL 03/19/2024 5:13 PM [facility] BUN/CREATININE RATIO 30(H) 12 - 20 ratio 03/19/2024 5:13 PM [facility] TOTAL PROTEIN 7.9 6.3 - 8.2 g/dL 03/19/2024 5:13 PM [facility] ALBUMIN 4.3 3.5 - 5.0 g/dL 03/19/2024 5:13 PM [facility] A/G RATIO 1.2 1.0 - 2.2 03/19/2024 5:13 PM [facility] CALCIUM 9.4 8.7 - 10.5 mg/dL 03/19/2024 5:13 PM [facility] T BILI 0.6 0.2 - 1.2 mg/dL 03/19/2024 5:13 PM [facility] SGOT (AST) 13 5 - 34 U/L 03/19/2024 5:13 PM [facility] SGPT (ALT) 17 0 - 55 U/L 03/19/2024 5:13 PM [facility] ALKALINE PHOSPHATASE 145 40 - 150 U/L 03/19/2024 5:13 PM [facility] IS THE PATIENT REQUIRED TO BE FASTING? No 03/19/2024 5:13 PM [facility] GFR, ESTIMATED >60 >=60 03/19/2024 5:13 PM [facility] Comment: Creatinine Clearance is the preferred criteria for selecting drug dose adjustments in renally impaired patients. The GFR is provided as additional pertinent clinical information. GFR is reported in mL/min/1.73 sq m. Calculation based on the Chronic Kidney Disease Epidemiology Collaboration (CKD- EPI) equation refit without adjustment for race. GFR, EST. >60 >=60 024 5:13 PM [facility] GFR, EST. NONAFRICAN >60 >=60 03/19/2024 5:13 PM [facility] Blood Venipuncture / Unknown 03/19/2024 4:31 PM IT SECURITY CONSULTANT 03/19/2024 4:51 PM IT SECURITY CONSULTANT Donny Antonio MD CHEMISTRY ORDERABLES Final R esult [email or web address] LAB [address] [place] [address] * HM DILATED EYE EXAM (08/30/2023 12:00 AM CDT) 08/30/2023 us Provider Scan PROCEDURE/MINOR SURGICAL ORDERAB LES Final Result Performing Organization Address [facility]/ZIP Co de Phone Number SCAN * CT CHEST W/O CONTRAST (07/14/2023 9:41 AM IT SECURITY CONSULTANT) Anatomical Region Laterality Modality Chest N/A Computed Tomogra phy 07/16/2023 2:02 PM IT SECURITY CONSULTANT Impressions 07/16/2023 2:04 PM IT SECURITY CONSULTANT IMPRESSION: Mild emphysema. Coronary artery disease. Recommend evaluation for annual lung cancer screening enrollment if the patient qualifies based on clinical factors and smoking history. Narrative 07/16/2023 2:04 PM IT SECURITY CONSULTANT EXAM DESCRIPTION: CT CHEST W/O CONTRAST REASON FOR STUDY: C/o dull chest pain and KAPOOR x 3 months TECHNIQUE: CT scan of the chest performed without intravenous contrast using helical scanning technique. Reconstructed coronal and sagittal MPR images reviewed. All images stored on PACS. Automated exposure control was used as a dose optimization technique for this examination. COMPARISON: None REFERENCE: Per ACR white paper recommendations, unless otherwise specified no follow-up imaging is recommended for incidental renal and adrenal lesions per consensus recommendations based on imaging criteria. Further lab evaluation could be pursued based on clinical findings. FINDINGS: The sensitivity for detection of solid visceral lesions is diminished without the use of intravenous contrast. LUNGS: Mild emphysema is seen. No suspicious nodules or masses. No pneumonia. PLEURA: No effusion. No pneumothorax. MEDIASTINUM/YEIMI: No identified masses or abnormal nodes. HEART: Heart size is normal with no pericardial effusion. CORONARY ARTERY CALCIFICATION: Present VASCULATURE: No thoracic aortic aneurysm. AXILLA: No adenopathy. CHEST WALL: No masses. No subcutaneous air. HARDWARE/LINES/TUBES: None. UPPER ABDOMEN: No significant abnormality. MUSCULOSKELETAL: No significant abnormality. OTHER: No other significant abnormality. THIS IS AN ELECTRONICALLY VERIFIED FINAL REPORT 07/16/2023 2:02 PM - Electronically signed by Arnaldo TRENT: MILEY Report ID: [id number] Reading Location: [id number] Procedure Note Glenn Forte MD - 07/16/2023 EXAM DESCRIPTION: CT CHEST W/O CONTRAST REASON FOR STUDY: C/o dull chest pain and KAPOOR x 3 months TECHNIQUE: CT scan of the chest performed without intravenous contrast using helical scanning technique. Reconstructed coronal and sagittal MPR images reviewed. All images stored on PACS. Automated exposure control was used as a dose optimization technique for this examination. COMPARISON: None REFERENCE: Per ACR white paper recommendations, unless otherwise specified no follow-up imaging is recommended for incidental renal and adrenal lesions per consensus recommendations based on imaging criteria. Further lab evaluation could be pursued based on clinical findings. FINDINGS: The sensitivity for detection of solid visceral lesions is diminished without the use of intravenous contrast. LUNGS: Mild emphysema is seen. No suspicious nodules or masses. No pneumonia. PLEURA: No effusion. No pneumothorax. MEDIASTINUM/YEIMI: No identified masses or abnormal nodes. HEART: Heart size is normal with no pericardial effusion. CORONARY ARTERY CALCIFICATION: Present VASCULATURE: No thoracic aortic aneurysm. AXILLA: No adenopathy. CHEST WALL: No masses. No subcutaneous air. HARDWARE/LINES/TUBES: None. UPPER ABDOMEN: No significant abnormality. MUSCULOSKELETAL: No significant abnormality. OTHER: No other significant abnormality. THIS IS AN ELECTRONICALLY VERIFIED FINAL REPORT 07/16/2023 2:02 PM - Electronically signed by Arnaldo TRENT: MILEY Report ID: [id number] Reading Location: [id number] IMPRESSION: Mild emphysema. Coronary artery disease. Recommend evaluation for annual lung cancer screening enrollment if the patient qualifies based on clinical factors and smoking history. Baljeet Abreu APRN, MARYAN IMG CT ORDERABLE S Final Result * MAMMOGRAM BILATERAL MISCELLANEOUS (04/13/2023 12:00 AM IT SECURITY CONSULTANT) 04/13/2023 us Provider Scan IMG MAMMO ORDERABLES Final Resul t SCAN * BONE DENSITY GENERIC SCAN (03/04/2023 12:00 AM CDT) 03/04/2023 us Provider Scan IMG DEXA ORDERABLES Final Result SCAN * (ABNORMAL) HEPATITIS PANEL ACUTE (AHP) (08/31/2016 1:40 PM CDT) HEPATITIS A IGM ANTIBODY NON DETECTED NON DETECTED 09/01/2016 2:35 AM CDT [facility] Comment: IGM Antibodies to HAV not detected. Does not exclude early acute or recovered HAV infection. HEP B CORE AB (IGM) GRAYZONE(A) NON DETECTED 09/01/2016 2:35 AM CDT [facility] Comment: IGM anti-HBC not detected. Does not exclude the possibility of exposure to or infection with HBV. Antibodes to IGM Anti-HBC may or may not be present. Patients with specimens exhibiting Grayzone reactive results should be retested at one week intervals. This is a corrected result. Previous result was NON DETECTED on 09/01/2016 at 0221 CDT HEPATITIS B SURFACE ANTIGEN NON DETECTED NON DETECTED 09/01/2016 2:35 AM CDT [facility] Comment: A nonreactive test result does not exclude the possibility of exposure to or infection with Hepatitis B virus. A nonreactive test result in individuals with prior exposure to hepatitis B may be due to antigen levels below the detection limit of this assay or lack of antigen reactivity to the antibodies in this assay. hepatitis C antibody 0.06 <1 S/CO 09/01/2016 2:35 AM CDT [facility] Comment: Signal/Cutoff ratio < 0.79 is Nondetected Signal/Cutoff ratio 0.80-0.99 is Grayzone Signal/Cutoff ratio > 0.99 is Detected Supplemental assays are recommended if signal/cutoff ratio is >/=1.00. Signal/cutoff ratio result >/= 5.00 is 97% predictive of positivity for recombinant immunoblot assay (RIBA) and will be reported to the [place] [facility] Public [facility] as required. Blood specimen (specimen) Venipuncture / Unknown 08/31/2016 1:40 PM CDT 08/31/2016 2:10 PM CDT Ivon Triplett APRN, DOUBLE END CHUCKING MACHINE OPERATOR HEMATOLOGY ORDERABLES Ed ited Result - Final [facility] [address] [place] [address], [place] * COLONOSCOPY (11/12/2013) us Richard To DO PROCEDURE/MINOR SURGICAL ORDERA BLES Final Result from Last 3 Months or Most Recently Relevant to Health Maintenance Insurance MEDICARE C [email or web address] Care Teams Video Control Operator Relationship Specialty Start Date End Date Saran Ken MD [address] [address] PCP - General Family Medicine 03/13/24 Susan Carmona MD [address] [place] [address] Consulting Physician Gastroenterology 04/22/22 Donny Antonio MD [address] [place] [address] Consulting Physician Neurology 03/22/24 Alida Castillo MD [address] [id number] Consulting Physician Endocrinology 07/13/24
--- OUTSIDE RECORDS SUMMARY | 2024-07-23 16:16 | XMS_ITS | Patient Health Summary ---
Author Organization [facility] Address [address] [place] [address] Care Team Providers Care Nuclear Plant Equipment Operator Name Role Phone Cari Marvin Primary Care Provider [phone] Note from [facility],non-owned Affiliates and Associated Physician Practices is amultiple site organization consisting of ambulatory clinics and hospital sitesin [place], [place], [place] and [place]. This disclosure is being madepursuant to the Care Everywhere program and may not contain all information available regarding this patient. Last updated 18.[facility] Allergies * Amoxicillin(Other) -Low Criticality * Amoxicillin-Pot Clavulanate(Nausea) -Low Criticality * Amoxicillin-Pot Clavulanate(Nausea and/or Vomiting,Vomiting) * Augmentin(Vomiting) * Doxycycline(Other) -Low Criticality * Dyclonine(Unknown) * Erythromycin(Other) -Low Criticality * Penicillins(Itching) * Simvastatin(Other) -Low Criticality Medications * Be aware that medications may not be up to date on this document. Alwaysverify current medications with the patient. * dicyclomine (BENTYL) 20 MG tablet(Started 07/28/2015) Take by mouth. * albuterol HFA (PROVENTIL HFA) 108 (90 BASE) MCG/ACT inhaler(Started 01/13/2016) Inhale 2 (two) puffs by mouth as directed * triamcinolone acetonide (KENALOG) 0.1 % ointment(Started 01/13/2016) 3 refills left * hydroCHLOROthiazide (HYDRODIURIL) 12.5 MG(Started 01/13/2016) Take 1 (one) tablet by mouth once daily * atorvastatin (LIPITOR) 80 MG tablet Take 1 (one) tablet by mouth at bedtime * Acetaminophen (TYLENOL PO) Take 1-2 tablets by mouth as directed * Blood Glucose Monitoring Suppl (ACCU-CHEK KRISHNA PLUS) w/Device KIT(Started 01/01/2019) as directed * aspirin (ASPIRIN) 81 MG chew tablet(Started 10/25/2018) Take 1 (one) tablet by mouth once daily * fluticasone propionate (FLONASE) 50 MCG/ACT nasal spray [place] 1 (one) spray into each nostril once daily * ACCU-CHEK KRISHNA PLUS test strip(Started 01/01/2019) 1 (one) strip as directed * VASCEPA 1 g capsule(Started 06/08/2019) Take 1 g by mouth 2 times daily with morning and evening meal * SOFTCLIX LANCETS MISC(Started 01/08/2019) as directed * albuterol (PROVENTIL;VENTOLIN) (2.5 MG/3ML) 0.083% nebulizer solution(Started 01/04/2019) Inhale 2.5 (two and one-half) mg by mouth as directed 6 refills left * pantoprazole EC (PROTONIX) 40 MG tablet(Started 06/20/2019) Take 1 (one) tablet by mouth once daily * ondansetron (ZOFRAN) 4 MG tablet(Started 10/02/2020) Take 1 (one) tablet by mouth every 6 hours as needed * potassium chloride ER (KLOR-CON M) 20 MEQ tablet(Started 03/19/2021) Take 1 (one) tablet by mouth once daily * Jardiance 10 MG tablet(Started 07/13/2022) Take 1 (one) tablet by mouth once daily * losartan (Cozaar) 50 MG tablet(Started 05/20/2022) Take 1 (one) tablet by mouth once daily * metFORMIN (Glucophage) 500 MG tablet(Started 06/22/2022) Take 2 (two) tablets by mouth 2 times daily * amitriptyline (Elavil) 10 MG tablet(Started 07/14/2022) Take 1 (one) tablet by mouth * azelastine (Optivar) 0.05 % ophthalmic solution(Started 08/03/2022) * Dulera 200-5 MCG/ACT inhaler(Started 10/03/2022) INHALE 2 PUFFS BY MOUTH TWICE DAILY. RINSE AND SPIT AFTER EVERY USE * pregabalin (Lyrica) 150 MG capsule Take 1 (one) capsule by mouth 2 times daily Active Problems Problem Noted Date Diagnosed Date [...] Date Resolved Date Diarrhea 07/30/2019 08/27/2019 Immunizations * INFLUENZA VACCINE, TRIV. (AFLURIA, FLUZONE TRIVALENT; 6MO+) (IIV3)(Given 01/23/2016, 05/16/2015) * Covid Pfizer primary Monovalent 12+ yr 0.3ml(Given 06/30/2021) * FLU VACCINE QUAD IIV4 SPLIT 0.25 ML IM(Given 02/09/2016) * FLU VACCINE TRI IIV3 SPLIT PF IM (FLUVIRIN)(Given 01/23/2016, 05/16/2015) * HEP A VACCINE, ADULT(Given 06/30/2016, 12/29/2015) * INFLUENZA VACCINE(Given 02/15/2018, 01/23/2016, 05/16/2015, 03/24/2015) * INFLUENZA VACCINE, QUADR. (FLUZONE; FLULAVAL; FLUARIX; AFLURIA QUADRIVALENT; 6MO+), 0.5 ML (IIV4)(Given 03/16/2021, 01/28/2020, 02/01/2019, 02/21/2018, 02/14/2017) * PNEUMOCOCCAL PPSV23(Given 01/01/2022, 05/16/2015, 03/24/2015) * Pneumococcal Pcv13 Conj(Given 02/06/2015) * TDAP (7yrs+)(Given 12/29/2015) * Zoster Hzv Vacc Recombinant Inj Im(Given 03/08/2022, 01/01/2022) Social History Tobacco Use Types Packs/Day Years [...] Comments Blood Pressure 141/87 07/21/2021 10:36 AM DIRECTOR OF RETENTION Pulse 94 07/21/2021 10:36 AM DIRECTOR OF RETENTION Temperature 36.4 C (97.6 F) 10/22/2019 1:52 PM CDT Respiratory Rate 16 07/21/2021 10:36 AM DIRECTOR OF RETENTION Oxygen Saturation 97% 07/21/2021 10:36 AM DIRECTOR OF RETENTION Inhaled Oxygen Concentration - - Weight 76 kg (167 lb 9.6 oz) 03/06/2024 3:48 PM CDT Height 158.8 cm (5' 2.5 ) 08/16/2023 2:28 PM CDT Body Mass Index 30.17 08/16/2023 2:28 PM CDT Procedures * XR CERVICAL SPINE 2 OR 3VW(Performed 03/06/2024) Performed for Neck pain * XR CERVICAL SPINE 2 OR 3VW(Performed 08/16/2023) Performed for Neck pain * XR CERVICAL SPINE 2 OR 3VW(Performed 02/16/2022) Performed for Neck pain * MRI LUMBAR SPINE WO CONTRAST(Performed 07/26/2021) Performed for Lumbosacral radiculopathy * PROCDOC MULTI JOINT ARTHROCENTESIS(Performed 07/22/2021) Performed for Piriformis syndrome of both sides * PROC TRIGGER POINT INJECTION(Performed 10/27/2020) Performed for Left hip pain, Piriformis syndrome of left side * XR HIP RIGHT 2VW OR MORE(Performed 10/27/2020) Performed for Pain of right hip joint * PROC TRIGGER POINT INJECTION(Performed 10/23/2019) Performed for Piriformis syndrome of both sides * VA INJ TRIGGER POINT, 1-2 MUSCLES(Performed 10/23/2019) Performed for Piriformis syndrome of both sides * XR PELVIS W LEFT HIP 2VW(Performed 10/22/2019) Performed for Left hip pain * US JOINT INJECTION OR ASPIRATE(Performed 03/26/2019) Performed for Primary osteoarthritis of right hip * VA DRAIN/INJECT LARGE JOINT/BURSA(Performed 03/26/2019) Performed for Primary osteoarthritis of right hip Results * XR Cervical Spine 2 or 3Vw (03/06/2024 3:47 PM CDT) Only the most recent of3 resultswithin the time period is included. Anatomical Region Laterality Modality Spine Radiographic Berkley ging 03/07/2024 8:45 AM CDT Impressions 03/07/2024 8:46 AM CDT IMPRESSION: Mild to moderate degenerative changes. > Interpreting Provider: Sea Montero MD on 03/07/2024 8:46 AM Narrative 03/07/2024 8:46 AM CDT PROCEDURE: XR CERVICAL SPINE 2 OR 3VW DATE/TIME OF EXAM: 03/07/2024 8:36 AM CLINICAL INFORMATION: None relevant/not provided if blank. Indication: M54.2: Neck pain Additional History: COMPARISON: 08/16/2023 FINDINGS: There is 2 mm anterolisthesis at C3-4-5. There is moderate degenerative disc and joint disease at C5-6 and mild involvement at other levels. No fracture is seen. Procedure Note Sea Montero MD - 03/07/2024 PROCEDURE: XR CERVICAL SPINE 2 OR 3VW DATE/TIME OF EXAM: 03/07/2024 8:36 AM CLINICAL INFORMATION: None relevant/not provided if blank. Indication: M54.2: Neck pain Additional History: COMPARISON: 08/16/2023 FINDINGS: There is 2 mm anterolisthesis at C3-4-5. There is moderate degenerative disc and joint disease at C5-6 and mild involvement at other levels. No fracture is seen. IMPRESSION: Mild to moderate degenerative changes. > Interpreting Provider: Sea Montero MD on 03/07/2024 8:46 AM Elia Padron MD DIAGNOSTIC IMAGING O RDERABLES * MRI LUMBAR SPINE WO CONTRAST (07/26/2021 2:42 PM CDT) Anatomical Region Laterality Modality Spine Magnetic Resonan ce 07/28/2021 8:08 PM CDT Impressions 07/28/2021 8:18 PM CDT IMPRESSION: 1. Multilevel degenerative disc and joint disease as detailed [id number] above. This report was electronically signed by THANH DE LEÓN on 07/28/2021 8:18 PM . Narrative 07/28/2021 8:18 PM CDT MRI LUMBAR SPINE WO CONTRAST DATE: 07/26/2021 2:42 PM EXAMINATION: Magnetic resonance imaging (MRI) of the lumbar spine without contrast HISTORY: M54.17: Lumbosacral radiculopathy TECHNIQUE: MRI of the lumbar spine was performed without contrast according to standard protocol. COMPARISON: No prior study is available for comparison at the time of this dictation. FINDINGS: Trace retrolisthesis of L5 on S1. Trace levocurvature of the lower lumbar spine. The alignment is otherwise maintained. Vertebral bodies are normal in height without evidence of compression fractures. Marrow signal intensity is normal. The conus medullaris terminates at the level of L1-L2 and the distal spinal cord signal intensity is normal. The anterior and posterior longitudinal ligaments as well as the posterior ligamentous complex appear intact. There is mild disc height loss and disc desiccation at multiple levels. No soft tissue abnormality is identified. 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 T10-T11: Minimal disc bulge. The spinal canal and neural foramina are patent. Suspected bilateral small perineural cysts. At T11-T12: Minimal disc bulge. The spinal canal and neural foramina are patent. Suspected small right renal cyst. T12-L1: The spinal canal and neural foramina are patent. L1-L2: There is no disc bulge. There is no central canal stenosis. There is mild facet osteoarthritis. There is no neural foraminal stenosis. L2-L3: There is diffuse disc bulge. There are thickening of the ligamentum flavum. There is mild central canal stenosis. There is mild facet osteoarthritis. There is mild neural foraminal stenosis. L3-L4: There is diffuse disc bulge. There is thickening of the ligamentum flavum. There is mild central canal stenosis. There is mild facet osteoarthritis. There is mild neural foraminal stenosis. L4-L5: There is mild disc bulge, eccentric to the right. Minimal thickening of the ligamentum flavum. There is no significant central canal stenosis. There is mild facet osteoarthritis. There is mild to moderate right and mild left neural foraminal stenosis. L5-S1: There is mild disc bulge, eccentric to the right. Mild thickening of the ligamentum flavum on the left. There is no significant central canal stenosis. There is mild facet osteoarthritis. There is moderate right and mild left neural foraminal stenosis. Procedure Note Thanh De León MD - 07/28/2021 MRI LUMBAR SPINE WO CONTRAST DATE: 07/26/2021 2:42 PM EXAMINATION: Magnetic resonance imaging (MRI) of the lumbar spinewithout contrast HISTORY: M54.17: Lumbosacral radiculopathy TECHNIQUE: MRI of the lumbar spine was performed without contrast according to standard protocol. COMPARISON: No prior study is available for comparison at the time ofthis dictation. FINDINGS: Trace retrolisthesis of L5 on S1. Trace levocurvature of the lowerlumbar spine. The alignment is otherwise maintained. Vertebral bodies arenormal in height without evidence of compression fractures. Marrow signal intensity is normal. The conus medullaris terminates at the level ofL1-L2 and the distal spinal cord signal intensity is normal. The anterior and posterior longitudinal ligaments as well as the posterior ligamentous complex appear intact. There is mild disc height loss and discdesiccation at multiple levels. No soft tissue abnormality is identified. Aprominent Tarlov cyst is seen posterior to the S3 vertebral body. T10-T11: Minimal disc bulge. The spinal canal and neural foramina are patent. Suspected bilateral small perineural cysts. At T11-T12: Minimal disc bulge. The spinal canal and neural foramina are patent. Suspected small right renal cyst. T12-L1: The spinal canal and neural foramina are patent. L1-L2: There is no disc bulge. There is no central canal stenosis. There is mild facet osteoarthritis. There is no neural foraminal stenosis. L2-L3: There is diffuse disc bulge. There are thickening of theligamentum flavum. There is mild central canal stenosis. There is mild facet osteoarthritis. There is mild neural foraminal stenosis. L3-L4: There is diffuse disc bulge. There is thickening of theligamentum flavum. There is mild central canal stenosis. There is mild facet osteoarthritis. There is mild neural foraminal stenosis. L4-L5: There is mild disc bulge, eccentric to the right. Minimal thickening of the ligamentum flavum. There is no significant centralcanal stenosis. There is mild facet osteoarthritis. There is mild to moderate right and mild left neural foraminal stenosis. L5-S1: There is mild disc bulge, eccentric to the right. Mild thickening of the ligamentum flavum on the left. There is no significant central canal stenosis. There is mild facet osteoarthritis. There is moderate right and mild left neural foraminal stenosis. IMPRESSION: 1. Multilevel degenerative disc and joint disease as detailed [id number] above. This report was electronically signed by THANH DE LEÓN on07/28/2021 8:18 PM . Mick Biswas III, MD MR ORDERABLES * JOINT INJ (07/22/2021 1:13 PM DIRECTOR OF RETENTION) Narrative Mick Biswas III, MD - 07/22/2021 1:13 PM DIRECTOR OF RETENTION Mick Biswas III, MD 07/22/2021 1:15 PM Consent Given by: patient Indications: pain Local Anesthesia Used?: Yes Joint Location: Hip Hip joint: Bilateral piriformis muscles. Prep: patient was prepped and draped in usual sterile fashion Needle Size: 22 G Medications ordered and administration documented through clinic-administered medications activity. Patient tolerance: Patient tolerated the procedure well with no immediate complications Mick Biswas III, MD PROCEDURE/MIN OR SURGICAL ORDERABLES * PROC TRIGGER POINT INJECTION (10/27/2020 4:32 PM CDT) Narrative Mick Biswas III, MD - 10/27/2020 4:32 PM CDT Mick Biswas III, MD 10/27/2020 4:35 PM After discussion of risks, benefits, and alternatives, the patient agreed to trigger point corticosteroid injection. The most tender area over the piriformis muscle was localized by palpation, recreated electrical pain in L4 distribution. The area was marked and cleaned in the usual sterile fashion using Betadine and alcohol. Ethyl chloride for topical anesthesia. The injection was performed at the left piriformis muscle using 0.5% ropivacaine and 40 mg of Kenalog. This was well tolerated. Mick Biswas III, MD PROCEDURE/MIN OR SURGICAL ORDERABLES * XR HIP RIGHT 2VW OR MORE (10/27/2020 3:49 PM CDT) Anatomical Region Laterality Modality Pelvis, Lower Extremity Radiogra [facility] 10/28/2020 8:25 AM CDT Impressions 10/28/2020 10:37 AM CDT IMPRESSION: No osseous abnormality identified. Dictated by Siena Davis MD (president educational institution). I, Dr. NICOLA GOINS have personally reviewed and interpreted this examination/study. This report was electronically signed by NICOLA GOINS on 10/28/2020 10:37 AM . Narrative 10/28/2020 10:37 AM CDT EXAMINATION: XR HIP RIGHT 2VW OR MORE HISTORY: M25.551: Pain of right hip joint COMPARISON: Pelvis radiograph on 10/22/2019 and right hip MRI on 05/30/2018 FINDINGS: The osseous structures are intact and well aligned without acute fracture or dislocation. The hip joint space is preserved. Bone density and texture are normal. Procedure Note Nicola Goins MD - 10/28/2020 EXAMINATION: XR HIP RIGHT 2VW OR MORE HISTORY: M25.551: Pain of right hip joint COMPARISON: Pelvis radiograph on 10/22/2019 and right hip MRI on 05/30/2018 FINDINGS: The osseous structures are intact and well aligned without acutefracture or dislocation. The hip joint space is preserved. Bone density andtexture are normal. IMPRESSION: No osseous abnormality identified. Dictated by Siena Davis MD (president educational institution). I, Dr. NICOLA GOINS have personally reviewed and interpreted this examination/study. This report was electronically signed by NICOLA GOINS on 10/28/2020 10:37 AM . Caprice JARAMILLO DIAGNOSTIC IMAGING O RDERABLES * PROC TRIGGER POINT INJECTION (10/23/2019 8:30 AM CDT) Narrative Mick Biswas III, MD - 10/23/2019 8:30 AM CDT Mick Biswas III, MD 10/23/2019 8:30 AM After discussion of risks, benefits, and alternatives, the patient agreed to corticosteroid injection. The area was marked and cleaned in the usual sterile fashion using Betadine and alcohol. Ethyl chloride for topical anesthesia. The injection was performed at the right piriformis using 0.5% ropivacaine and 40 mg of Kenalog. This was well tolerated. Mick Biswas III, MD PROCEDURE/MIN OR SURGICAL ORDERABLES * VA INJ TRIGGER POINT, 1-2 MUSCLES (10/23/2019 8:29 AM CDT) Narrative Mick Biswas III, MD - 10/23/2019 8:29 AM CDT Mick Biswas III, MD 10/23/2019 8:30 AM After discussion of risks, benefits, and alternatives, the patient agreed to corticosteroid injection. The area was marked and cleaned in the usual sterile fashion using Betadine and alcohol. Ethyl chloride for topical anesthesia. The injection was performed at the left piriformis using 0.5% ropivacaine and 40 mg of Kenalog. This was well tolerated. Mick Biswas III, MD PROCEDURE/MIN OR SURGICAL ORDERABLES * XR PELVIS W LEFT HIP 2VW (10/22/2019 1:48 PM CDT) Anatomical Region Laterality Modality Pelvis Radiographic Berkley ging 10/22/2019 2:40 PM CDT Impressions 10/22/2019 2:52 PM CDT Impression: Minimal degenerative change in the left hip. Report drafted by Paresh Hernandez M.D. (resident) Dr. SEA Dalton MD have personally reviewed and interpreted this examination/study. This report was electronically signed by SEA MONTERO MD on 10/22/2019 2:52 PM . Narrative 10/22/2019 2:52 PM CDT Exam: Radiographs of the pelvis with the left hip, 2 views History: M25.552: Left hip pain Comparison: Right hip MRI on 05/30/2018 Findings: There is no left hip fracture or dislocation. There is minimal degenerative change without joint space narrowing. The pelvic radiograph demonstrates no displaced fracture or sacroiliac or pubic symphysis diastasis. Procedure Note Sea Montero MD - 10/22/2019 Exam: Radiographs of the pelvis with the left hip, 2 views History: M25.552: Left hip pain Comparison: Right hip MRI on 05/30/2018 Findings: There is no left hip fracture or dislocation. There is minimal degenerative change without joint space narrowing. The pelvic radiograph demonstrates no displaced fracture or sacroiliacor pubic symphysis diastasis. Impression: Minimal degenerative change in the left hip. Report drafted by Paresh Hernandez M.D. (resident) Dr. SEA Dalton MD have personally reviewed and interpreted this examination/study. This report was electronically signed by SEA MONTERO MD on10/22/2019 2:52 PM . Mick Biswas III, MD DIAGNOSTIC IM AGING ORDERABLES * US JOINT INJECTION OR ASPIRATE (03/26/2019 4:16 PM DIRECTOR OF RETENTION) Narrative [facility] - 03/26/2019 4:16 PM DIRECTOR OF RETENTION This procedure was performed by an Orthopedic physician in a clinic setting. Please see the procedure note. Mick Biswas III, MD US ORDERABLES [facility] * VA DRAIN/INJECT LARGE JOINT/BURSA (03/26/2019 1:43 PM DIRECTOR OF RETENTION) Narrative Mick Biswas III, MD - 03/26/2019 1:43 PM DIRECTOR OF RETENTION Mick Biswas III, MD 04/06/2019 12:26 PM After discussion of risks, benefits, and alternatives, the patient agreed to ultrasound guided corticosteroid injection. The right hip femoral head-neck junction was identified using ultrasound. The femoral neurovascular bundle was identified medially and marked. The injection area was marked and cleaned in the usual sterile fashion using Chloraprep. Ethyl chloride for topical anesthesia. The injection was performed at the right hip femoral head-neck junction with ultrasound guidance using 0.5% ropivacaine and 40 mg of Kenalog. This was well tolerated. Mick Biswas III, MD PROCEDURE/MIN OR SURGICAL ORDERABLES Care Teams Nuclear Plant Equipment Operator Relationship Specialty Start Date End Date Cari Marvin DO [address] [place] [phone] PCP - General Family Medicine 02/03/24
--- OUTSIDE RECORDS SUMMARY | 2024-07-23 16:16 | XMS_ITS | Clinical Summary ---
Author Organization [facility] Address [address] [place] [id number] Care Team Providers Care Rail Car Loader Name Role Phone Unavailable Primary Care Provider Unavailabl e Social History Tobacco Use Types Packs/Day Years Used Date Smoking Tobacco: Never Assessed Comments Unknown Sex and Gender Information Value Date Recorded Sex Assigned at Not on file Legal Sex Female 6:43 PM CDT Gender Identity Not on file Sexual Orientation Not on file Last Filed Vital Signs Vital Sign Reading Time Taken Comments Blood Pressure 120/64 07/29/2015 4:04 PM CDT Pulse - - Temperature - - Respiratory Rate - - Oxygen Saturation - - Inhaled Oxygen Concentration - - Weight 88.9 kg (196 lb) 07/29/2015 4:03 PM CDT Height 160 cm (5' 3 ) 07/29/2015 4:03 PM CDT Body Mass Index 34.72 07/29/2015 4:03 PM CDT Plan of Treatment Health Maintenance Due Date Last Done Comments Colorectal Cancer Screening Colonoscopy (10 Years) 1956 Hepatitis C 1974 DTaP, Tdap and Td Vaccines ( 1 - Tdap) 12/29/1975 Mammogram Screening 1996 Zoster Vaccines (1 of 2) 2006 Dexa Scan (General) 2021 Pneumococcal Vaccine: 65+ Ye ars (1 of 1 - PCV) 2021 COVID-19 Vaccine ( - 2023-2 5 season) 2024 Influenza Adult (#1) 2024 RSV Immunization or 60+ Years (1 - 1-dose 75+ series) 12/29/2031 Meningococcal B Vaccine Aged Out No l onger eligible based on patient's age to complete this topic Meningococcal Vaccine Aged Out No roger yumiko eligible based on patient's age to complete this topic RSV Immunizations Under 20 Months Aged Out No longer eligible based on patient's age to complete this topic
--- OUTSIDE RECORDS SUMMARY | 2024-07-23 16:16 | XMS_ITS | Encounter Summary ---
Author Organization [facility] Address [address] [place] [address] Phone Care Team Providers Care Mastic Sprayer Name Role Phone Ivon Triplett APRPankaj [employer] Unavailable James Phoenix MD Primary Care Provider [phone] Susan Carmona MD Unavailable [phone] Cari Marvin DO Primary Care Provider Cari Marvin DO Primary Care Provider Saran Ken MD Primary Care Provider [phone] Donny Antonio MD Unavailable Alida Castillo MD Unavailable Reason for Visit * Reason Comments Medication Refill Encounter Details Date Type Department Care Team (Late st Contact Info) Description 03/30/2023 Refill [facility] - Family Medicine [facility]3] [address] [place] [address] James Phoenix MD [address] [place] [address] Medication Refill Social History Tobacco Use Types [...] 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 No / Unsure 03/17/2023 2:03 PM CDT documented as of this encounter Miscellaneous Notes * Telephone Encounter - Nanci Cook RN - 03/31/2023 11:24 AM PHARMACY SPECIALIST The original prescription was discontinued on 03/17/2023 by James Phoenix MD for the following reason: Med List Clean Up. Renewing this prescription may not be appropriate MACY SPECIALIST documented in this encounter Plan of Treatment Upcoming Encounters Date Type Department Care Team (Late st Contact Info) Description 08/03/2024 11:30 AM CDT Office Visit [facility] - Cardiology - [place] [address] [place] [phone] Chiquis Kaplan APRN, [employer] [address] [place] [phone] 10/11/2024 2:00 PM CDT Office Visit [facility] - Endocrinology - [place] [address] [place] [phone] Alida Castillo MD [address] [phone] 10/30/2024 2:45 PM CDT Office Visit [facility] - Family [facility] [address] [place] [address] Saran Ken MD [address] [address] documented as of this encounter Visit Diagnoses Diagnosis Anxiety Anxiety state, unspecified documented in this encounter Additional Health Concerns Assessment Noted Time PHQ-9 Depression Total Score: 0 11/13/19 23 1:55 PM CDT documented as of this encounter Care Teams Mastic Sprayer Relationship Specialty Start Date End Date James Phoenix MD PCP - General Family Medicine 04/11/20 01/12/24 Cari Marvin DO 2 [facility] [place] [address] [address] PCP - General Family Medicine 01/13/24 02/15/24 Cari Marvin DO 2 [facility] [place] [address] [address] PCP - General Family Medicine 02/24/24 03/12/24 Saran Ken MD [address] [facility] [address] PCP - General Family Medicine 03/13/24 Ivon Triplett APRN, [employer] Nurse Practitioner Advanced Practice Nurse 05/25/16 Susan Carmona MD [address] [place] [address] Consulting Physician Gastroenterology 04/22/22 Donny Antonio MD [address] [place] [address] Consulting Physician Neurology 03/22/24 Alida Castillo MD [address] [phone] Consulting Physician Endocrinology 07/13/24 documented as of this encounter
== END 2024-07-23 14:02 | disposition home or self-care (01) ==
PROVIDERS: PCP Family Medicine; Visit Provider Nurse Practitioner Family
DX: Z12.2 Encounter for screening for malignant neoplasm of respiratory organs (principal); Z87.891 Personal history of nicotine dependence
CPT/HCPCS: 71271